=== PATIENT | male | born 1975 | race Caucasian/White ===

== ENCOUNTER 2018-02-06 20:59 | Emergency (ER) | payer MEDICARE, OTHER ==
[2018-02-06 21:58] LABS: Hematocrit 41 % (42-52); Mean Corpuscular HGB Conc 32 g/dl (31-36); Mean Corpuscular Hemoglobin 27 pg (27-31); Mean Corpuscular Volume 86 fL (80-94); Mean Platelet Volume 9.9 fL (7.4-10.4); Platelet Count 235 10^3/ul (150-450); Red Blood Count 4.74 10^6/ul (4.00-5.40); Red Cell Distribution Width 17 % (10.5-15)
[2018-02-06 22:09] LABS: Albumin 3.7 g/dL (3.2-5.2); Albumin/Globulin Ratio 0.9 (1-3); BUN/Creatinine Ratio 44.3 (8-20); C Reactive Protein 45.17 mg/L (<8.01); Calcium 9.6 mg/dL (8.6-10.3); EGFR Non-African American 144.3 (>60); Globulin 4.3 g/dL (2-4); Potassium 4.4 mmol/L (3.5-5.0); Total Bilirubin 0.4 mg/dL (0.2-1.0)
[2018-02-06 22:52] LABS: Immature Granulocytes 2 % (0-9); Lymphocytes % 14 %; Metamyelocytes % 1 % (0-2); Monocytes % 8 %; Myelocytes % 1 % (0-1); Neutrophil % 71 %
[2018-02-06 22:53] LABS: ABS Basophils 0.1 10^3/ul (0-0.2); ABS Eosinophils 0.3 10^3/ul (0-0.6); ABS Lymphocytes 1.1 10^3/ul (1.0-4.8); ABS Monocytes 0.7 10^3/ul (0-0.8); ABS Neutrophils 5.8 10^3/ul (1.5-7.7); ABS Nucleated RBC 0 10^3/ul; Nucleated Red Blood Cells % 0.1
--- NOTE | 2018-02-06 23:03 | ED ---
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 Denies trauma, fever, purulent discharge, pain , N/V, change in lower extremities other than bleeding. Patient concerned for bleeding. Patient states he used to be followed by home care, but has not been there a year. History of recent antibiotics for cellulitis of right calf completed one to 2 weeks ago. Antibiotics prescribed by PCP. - History of Current Complaint Chief Complaint: EDExtremityLower Stated Complaint: RIGHT FOOT PAIN Time Seen by Provider: 02/06/18 21:10 Hx Obtained From: Patient Mechanism Of Injury: Other Severity Currently: None Pain Intensity: 0 Pain Scale Used: 0-10 Numeric Able to Bear Weight: Yes - Allergies/Home Medications Allergies/Adverse Reactions: Allergies Allergy/AdvReac Type Severity Reaction Status Date / Time No Known Allergies Allergy Verified 11/23/14 13:40 PMH/Surg Hx/FS Hx/Imm Hx Endocrine/Hematology History: Denies: Hx Anticoagulant Therapy Cardiovascular History: Denies: Hx Atrial Fibrillation History: Denies: Hx Dialysis Sensory History: Denies: Hx Eye Prosthesis EENT History: Denies: Hx Deafness Neurological History: Denies: Hx Developmental Delay Psychiatric History: Denies: Hx Autism Infectious Disease History: No Infectious Disease History: Denies: Traveled Outside the [place] in Last 30 Days - Family History Known Family History: Positive: Unknown - Social History Occupation: Unemployed Alcohol Use: Rare Substance Use Type: Reports: None Smoking Status (MU): Never Smoked Tobacco Review of Systems Constitutional: Negative Eyes: Negative ENT: Negative Cardiovascular: Negative Respiratory: Negative Gastrointestinal: Negative Genitourinary: Negative Musculoskeletal: Negative Skin: Other Neurological: Negative Psychological: Normal All Other Systems Reviewed And Are Negative: Yes Physical Exam - Summary Physical Exam Summary: Small area of bleeding noted on medial right ankle consistent with abrasion. Chronic lymphedema with chronic skin changes and large creases in swollen tissue. No foul odor, purulent discharge noted. No indication of trauma, extra warmth, erythema, ecchymosis noted. Motor function intact distally Triage Information Reviewed: Yes Vital Signs On Initial Exam: Initial Vitals Temp Pulse Resp BP Pulse Ox 96.8 F 100 16 134/70 98 02/06/18 21:01 02/06/18 21:01 02/06/18 21:01 02/06/18 21:01 02/06/18 21:01 Vital Signs Reviewed: Yes Appearance: Positive: Well-Appearing Skin: Positive: Warm Head/Face: Positive: Normal Head/Face Inspection Eyes: Positive: Normal Neck: Positive: Supple Respiratory/Lung Sounds: Positive: Clear to Auscultation Cardiovascular: Positive: Normal Abdomen Description: Positive: Nontender Musculoskeletal: Positive: Normal Neurological: Positive: Normal Psychiatric: Positive: Normal AVPU Assessment: Alert - Alannah Coma Scale Best Eye Response: 4 - Spontaneous Best Motor Response: 6 - Obeys Commands Best Verbal Response: 5 - Oriented Coma Scale Total: 15 Diagnostics - Vital Signs Vital Signs Temp Pulse Resp BP Pulse Ox 02/06/18 21:01 96.8 F 100 16 134/70 98 - Laboratory Lab Results: Lab Results 02/06/18 02/06/18 02/06/18 Range/Units 21:23 21:23 21:23 WBC 8.0 (3.5-10.8) 10^3/ul RBC 4.74 (4.00-5.40) 10^6/ul Hgb 13.0 L (14.0-18.0) g/dl Hct 41 L (42-52) % MCV 86 (80-94) fL MCH 27 (27-31) pg MCHC 32 (31-36) g/dl RDW 17 H (10.5-15) % Plt Count 235 (150-450) 10^3/ul MPV 9.9 (7.4-10.4) fL Neut % (Auto) Not Reportable Lymph % (Auto) Not Reportable Gillespie % (Auto) Not Reportable Eos % (Auto) Not Reportable Baso % (Auto) Not Reportable Absolute Neuts (auto) 5.8 (1.5-7.7) 10^3/ul Absolute Lymphs (auto) 1.1 (1.0-4.8) 10^3/ul Absolute Monos (auto) 0.7 (0-0.8) 10^3/ul Absolute Eos (auto) 0.3 (0-0.6) 10^3/ul Absolute Basos (auto) 0.1 (0-0.2) 10^3/ul Absolute Nucleated RBC 0 10^3/ul Immature Gran % 2 (0-9) % Neutrophils % 71 % Lymphocytes % 14 % Monocytes % 8 % Eosinophils % 4 % Basophils % 1 % Metamyelocytes % 1 (0-2) % Myelocytes % 1 (0-1) % Nucleated RBC % 0.1 Normal RBC Morphology Normal (Normal) Sodium 142 (135-145) mmol/L Potassium 4.4 (3.5-5.0) mmol/L Chloride 103 (101-111) mmol/L Carbon Dioxide 36 H (22-32) mmol/L Anion Gap 3 (2-11) mmol/L BUN 27 H (6-24) mg/dL Creatinine 0.61 L (0.67-1.17) mg/dL Est GFR ( Amer) 174.6 (>60) Est GFR (Non-Af Amer) 144.3 (>60) BUN/Creatinine Ratio 44.3 H (8-20) Glucose 80 (70-100) mg/dL Lactic Acid 0.9 (0.5-2.0) mmol/L Calcium 9.6 (8.6-10.3) mg/dL Total Bilirubin 0.40 (0.2-1.0) mg/dL AST 27 (13-39) U/L ALT 33 (7-52) U/L Alkaline Phosphatase 77 (34-104) U/L C-Reactive Protein 45.17 H (<8.01) mg/L Total Protein 8.0 (6.4-8.9) g/dL Albumin 3.7 (3.2-5.2) g/dL Globulin 4.3 H (2-4) g/dL Albumin/Globulin Ratio 0.9 L (1-3) Result Diagrams: 02/06/18 21:23 02/06/18 21:23 Lab Statement: Any lab studies that have been ordered have been reviewed, and results considered in the medical decision making process. 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 Denies trauma, fever, purulent discharge, pain, N/V, change in lower extremities other than bleeding. Patient concerned for bleeding. Patient states he used to be followed by home care, but has not been there a year. History of recent antibiotics for cellulitis of right calf completed one to 2 weeks ago. Antibiotics prescribed by PCP. Physical exam:Small area of bleeding noted on medial right ankle consistent with abrasion. Chronic lymphedema with chronic skin changes and large creases in swollen tissue. No foul odor, purulent discharge noted. No indication of trauma, extra warmth, erythema, ecchymosis noted. Motor function intact distally. Vital signs within normal limits. Normal white count. X Way of right ankle negative for acute process. No indication of infection. Bleeding controlled. Pressure dressing applied. Follow-up with primary care. Patient also seen by Dr. Ricardo who agrees with plan. - Diagnoses Provider Diagnoses: Lymphedema of extremity Discharge - Sign-Out/Discharge Documenting (check all that apply): Patient Departure - Discharge Plan Condition: Stable Disposition: HOME Patient Education Materials: Lymphedema (ED) Referrals: No Primary Care Phys,NOPCP [Primary Care Provider] - Additional Instructions: Follow-up with your primary care doctor. Return to the ED for any new or worsening symptoms - Billing Disposition and Condition Condition: STABLE Disposition: Home
[2018-02-06 23:22] VITALS: BP 126/82
== END 2018-02-06 23:22 | disposition home or self-care (01) ==
LOC: ED 20:59
DX: I89.0 Lymphedema, not elsewhere classified (principal)
CPT/HCPCS: 36415; 80053; 83605; 85025; 86140; 87040; 99282

== ENCOUNTER 2018-02-15 15:52 | Inpatient (IN) | payer MEDICARE, OTHER ==
--- NOTE | 2018-02-15 16:16 | ED ---
GI/ HPI - HPI Summary HPI Summary: Patient is a 42 y/o M presenting to ED with complaints of constipation for the past 2-3 days. No abdominal pain reported. However, he had a bowel movement 2 hours ago that was soft. He has been taking a stool softener. On triage, temp of 90 F is noted. Patient states that he has heat in his home and that it is parachute line tier his home. He denies that he has been outside recently. Patient lives by himself in a trailer. Redness of hands is noted, he claims that his hands are typically red. PMHx of lymphedema, no Hx of diabetes reported. He states he has been seen by [facility]. Patient has bandages on his legs, he claims that he wraps his own bandages. He notes that he places alganate on his legs, states that he placed present alganate on legs 1-2 days ago. Patient claims to weigh around 450 lbs. On triage, pain is denied. Nothing is noted to aggravate/alleviate Sx. Home medications, allergies, and nurse's note are reviewed. - History of Current Complaint Chief Complaint: EDGeneral Time Seen by Provider: 02/15/18 16:03 Stated Complaint: CONSTIPATION Hx Obtained From: Patient Onset/Duration: Started Days Ago - constipation 2-3 days ago, Still Present Timing: Constant, Lasting Days - constipation 2-3 days ago Current Severity: None - pain denied Pain Intensity: 0 Associated Signs and Symptoms: Positive: Constipation. Negative: Abdominal Pain Aggravating Factor(s): Nothing Alleviating Factor(s): Nothing - Allergy/Home Medications Allergies/Adverse Reactions: Allergies Allergy/AdvReac Type Severity Reaction Status Date / Time levofloxacin [From Levaquin] Allergy Headache Verified 02/15/18 16:01 Home Medications: Home Medications Penicillin VK 500 MG TAB(NF) [Penicillin VK 500 mg Tab] 500 mg PO BID 02/15/18 [ History Confirmed 02/15/18] PMH/Surg Hx/FS Hx/Imm Hx Endocrine/Hematology History: Denies: Hx Anticoagulant Therapy Cardiovascular History: Denies: Hx Atrial Fibrillation History: Denies: Hx Dialysis Sensory History: Denies: Hx Eye Prosthesis, Hx Deafness Opthamlomology History: Denies: Hx Eye Prosthesis Neurological History: Denies: Hx Developmental Delay Psychiatric History: Denies: Hx Autism Infectious Disease History: No Infectious Disease History: Denies: Traveled Outside the [place] in Last 30 Days - Family History Known Family History: Negative: Blood Disorder - Social History Alcohol Use: Rare Substance Use Type: Reports: None Smoking Status (MU): Never Smoked Tobacco Review of Systems Positive: Other - TEMP OF 90 F Negative: Abdominal Pain Positive: other - POSITIVE - CONSTIPATION Positive: Other - POSITIVE - ERYTHEMA OF HANDS All Other Systems Reviewed And Are Negative: Yes Physical Exam - Summary Physical Exam Summary: Appearance: Well appearing, no pain distress Skin: cold, dry, reflects adequate perfusion; extreme edema BLE with chronic skin changes, weeping wounds, large wounds dressed with alginate; erythema of hands with chronic skin changes Head/face: normal Eyes: EOMI, JENN ENT: mucous membranes moist; thick yellow discharge from right narse Neck: supple, non-tender Respiratory: CTA, breath sounds present Cardiovascular: RRR, pulses symmetrical Abdomen: non-tender, soft Bowel Sounds: present Musculoskeletal: strength/ROM intact, extreme edema BLE; lymphedema at BLE up to umbilicus. Neuro: normal, sensory motor intact, A&Ox3 Psych: Developmental delay, otherwise normal Triage Information Reviewed: Yes Vital Signs On Initial Exam: Initial Vitals Temp Pulse Resp BP Pulse Ox 0 F 61 18 95/71 98 02/15/18 15:55 02/15/18 15:55 02/15/18 15:55 02/15/18 15:55 02/15/18 15:55 Vital Signs Reviewed: Yes Diagnostics - Vital Signs Vital Signs Temp Pulse Resp BP Pulse Ox 02/15/18 15:55 0 F 61 18 95/71 98 - Laboratory Result Diagrams: 02/15/18 17:03 02/15/18 17:03 Lab Statement: Any lab studies that have been ordered have been reviewed, and results considered in the medical decision making process. - CT abd/pel ct CT Interpretation Completed By: Radiologist Summary of CT Findings: IMPRESSION: #. Negative for bowel obstruction or significant retained stool within the colon. #. Moderate predominant sigmoid diverticulosis of the colon without findings of acute. diverticulitis. #. Bilateral enlarged inguinal and external iliac lymph nodes with dominant 2.7 cm short. axis LEFT inguinal lymph node. Dominant external iliac lymph node measures 1.8 cm short. axis on the RIGHT. Correlate with clinical assessment and consider tissue sampling for. pathologic assessment if deemed appropriate. #. Cholelithiasis without secondary findings to suggest acute cholecystitis. This report was reviewed by ED physician. GIGU Course/Dx - Course Course Of Treatment: Nurse's notes reviewed. The patient presents very cold to the touch but only complaining today of constipation. He is overly obese with extreme lymphedema of his legs. There are chronic wounds on both lower extremities. We clean and redress both of them which were dirty. A CT scan was done of his abdomen which showed no indication of constipation or abdominal pathology. Despite his core temperature rectally of 87.3 there is remarkably no significant laboratory abnormality at this point. We suspect the patient has no heat in his home and is very cold out at present. He relays that he lives alone in a trailer. Social work was contacted and will be involved in his case. He required warming with external warming blanket and warmed IV fluids. He'll be admitted to the hospitalist service for further. - Diagnoses Differential Diagnoses - Male: Other - Hypothermia, sepsis, pneumonia, abdominal infection, constipation, UTI, lower extremity infection from chronic wounds Provider Diagnoses: Hypothermia, Lymphedema, Lymphadenopathy, Chronic wound of extremity - Physician Notifications Discussed Care Of Patient With: Khadra Salmon Time Discussed With Above Provider: 17:32 Instructed by Provider To: Other - Patient's case was discussed with Dr. Salmon, Dr. Salmon accepts for admission. - Critical Care Time Critical Care Time: 30-74 min - CCT is EXCLUSIVE of separately billable procedures. Discharge - Sign-Out/Discharge Documenting (check all that apply): Patient Departure - ADMIT - Discharge Plan Condition: Fair Disposition: ADMITTED TO [facility] Referrals: No Primary Care Phys,NOPCP [Primary Care Provider] - - Billing Disposition and Condition Condition: FAIR Disposition: Admitted to [facility] - Attestation Statements Document Initiated by Scribe: Yes Documenting Scribe: MARSHALL COLLINS Provider For Whom Summer is Documenting (Include Credential): NAKIA LOO MD Scribe Attestation: MARSHALL Carrasco , scribed for NAKIA LOO MD on 02/15/18 at 1846. Scribe Documentation Reviewed: Yes Provider Attestation: The documentation as recorded by the MARSHALL mendoza accurately reflects the service I personally performed and the decisions made by me, NAKIA LOO MD Status of Scribe Document: Viewed
[2018-02-15 17:18] LABS: Hematocrit 41 % (42-52); Hemoglobin 13.2 g/dl (14.0-18.0); Mean Corpuscular HGB Conc 32 g/dl (31-36); Mean Corpuscular Hemoglobin 28 pg (27-31); Mean Corpuscular Volume 86 fL (80-94); Mean Platelet Volume 8.8 fL (7.4-10.4); Platelet Count 134 10^3/ul (150-450); Red Blood Count 4.78 10^6/ul (4.00-5.40); Red Cell Distribution Width 17 % (10.5-15); White Blood Count 4.7 10^3/ul (3.5-10.8)
[2018-02-15 17:26] LABS: INR 1.06 (0.77-1.02)
[2018-02-15 17:35] LABS: Albumin 3.6 g/dL (3.2-5.2); Albumin/Globulin Ratio 0.9 (1-3); BUN/Creatinine Ratio 46.3 (8-20); Calcium 9.4 mg/dL (8.6-10.3); EGFR Non-African American 166.1 (>60); Globulin 3.9 g/dL (2-4); Potassium 4.3 mmol/L (3.5-5.0); Total Bilirubin 0.5 mg/dL (0.2-1.0); Total Protein 7.5 g/dL (6.4-8.9)
[2018-02-15 17:58] LABS: ABS Basophils 0 10^3/ul (0-0.2); ABS Eosinophils 0.1 10^3/ul (0-0.6); ABS Lymphocytes 0.7 10^3/ul (1.0-4.8); ABS Monocytes 0.3 10^3/ul (0-0.8); ABS Neutrophils 3.5 10^3/ul (1.5-7.7); ABS Nucleated RBC 0 10^3/ul; Nucleated Red Blood Cells % 0.3
[2018-02-15] MEDS ORDERED: Acetaminophen TAB* 325 MG PO PRN (18:00)
[2018-02-15] MEDS ORDERED: Ondansetron INJ* 2 MG/ML VIAL IV PRN (18:01)
[2018-02-15] MEDS ORDERED: Senna TAB PO PRN (18:02)
[2018-02-15] MEDS ORDERED: NS 0.9% 1000 ML* 1,000 ML IV SCH (18:15)
[2018-02-15] MEDS: Enoxaparin(*) 40 MG/0.4 ML SYR SUBCUT SCH (18:39)
--- NOTE | 2018-02-15 20:35 | HP ---
HISTORY AND PHYSICAL: DATE OF ADMISSION: 02/15/18 PRIMARY CARE PROVIDER: The patient does not have a primary care doctor. CHIEF COMPLAINT: Constipation. HISTORY OF PRESENT ILLNESS: This is a 42-year-old male with history of developmental delay, chronic lymphedema with history of recurrent left leg cellulitis; on suppressive penicillin, who comes to the emergency room because of constipation. The patient states that he has been taking laxative and he has been having minimal stool output. He does not have any abdominal pain, no nausea, no vomiting. He does not have any fevers, no chills, no chest pain, no shortness of breath. He states that his last good bowel movement was about 3 to 4 days ago. Usually, he has bowel movement every day and he is having a small amount of stool. There have no been no recent changes in his medication or his diet. PAST MEDICAL HISTORY: 1. Developmental delay. 2. Chronic lymphedema. 3. History of recurrent left leg cellulitis. PAST SURGICAL HISTORY: 1. Hernia surgery. 2. Tonsillectomy. MEDICATIONS: Include penicillin 500 mg tablet twice a day. ALLERGIES: Levofloxacin causes him to have a headache. FAMILY HISTORY: The patient does not know if his mother or father had any medical issues. SOCIAL HISTORY: He does not smoke, currently does not work, occasional alcohol use. REVIEW OF SYSTEMS: A full 14-point review of systems was done and is as stated in the HPI; otherwise, is negative. PHYSICAL EXAMINATION GENERAL: This is an obese male, lying on an ER stretcher in no acute distress. VITAL SIGNS: Blood pressure of 95/71, pulse of 61, respiratory rate of 18, pulse ox of 98% on room air, the patient was found to have hypothermia; temperature of 87.4 in the emergency room. After being placed on a Geoffrey Hugger , has slightly improved. HEENT: Pupils are equal, round, reactive to light. Atraumatic, normocephalic. LUNGS: There is no tachypnea, no use of accessory muscles. Lungs are clear to auscultation with no wheezing, rales, or rhonchi. HEART: Regular rate and rhythm. No chest wall tenderness. No murmurs, rubs, or gallops. ABDOMEN: Bowel sounds are normoactive in all 4 quadrants. Abdomen is soft, nontender, nondistended. EXTREMITIES: There is bilateral lower leg edema with no area of erythema, tenderness, or warmth. area of sloughing, with mild discharge NEUROLOGICAL: Alert and oriented x3, the patient is slow to talk; however, answers all questions appropriately. Follows all commands. Speech is clear, but slow. There is symmetric smile. There is no nystagmus. He is able to move all 4 extremities without any issues. DIAGNOSTIC STUDIES/LAB DATA: Labs: White cell count of 4.7, hemoglobin of 13.2, hematocrit 41, platelets of 134. INR 1.06. Chemistry, sodium of 142, potassium of 4.3, chloride of 104, bicarbonate of 36, BUN of 25, creatinine of 0.54, glucose of 157. AST of 37, ALT of 52, alk phos of 81. The patient had abdominal and pelvis CAT scan done, which showed negative for bowel obstruction or significant retained stool within the colon. It showed prominent sigmoid diverticulosis of the colon without acute findings of diverticulitis. The patient does have bilateral enlarged inguinal external lymph nodes, with dominant of 2.7 cm as well as 1.8 cm on the right. There are gallstones without evidence suggestive of acute cholecystitis. IMPRESSION AND PLAN: 1. Hypothermia: It is likely that the patient does not have any heat at home, so we placed the patient on Geoffrey Hugger. At this point, he is nontoxic appearing. There is no evidence of focal infection. Urinalysis was sent. 2. Lymphedema: This is chronic for him. Dressings are intact. 3. Recurrent cellulitis: Continue home dose penicillin. 4. DVT prophylaxis: We will start the patient on Lovenox 40 mg subcutaneous. 5. We will monitor the patient's clinical course and adjust the plan accordingly. [id number]/[facility] #: [id number] [facility]
[2018-02-15] MEDS: Penicillin VK TAB* 250 MG PO SCH (20:57)
[2018-02-15] MEDS: Docusate CAP* 100 MG PO SCH (20:57)
[2018-02-15] MEDS: Magnesium Hydroxide LIQ* 30 ML UDC PO SCH (20:57)
[2018-02-16] MEDS: NS 0.9% 1000 ML* 1,000 ML IV SCH ×2 (02:22→10:22)
[2018-02-16] MEDS: Penicillin VK TAB* 250 MG PO SCH ×2 (08:51→21:12)
[2018-02-16] MEDS: Magnesium Hydroxide LIQ* 30 ML UDC PO SCH ×2 (08:51→21:12)
[2018-02-16] MEDS: Docusate CAP* 100 MG PO SCH ×2 (08:51→21:12)
[2018-02-16 09:15] LABS: TSH (Thyroid Stimulating Horm) 4.27 mcIU/mL (0.34-5.60)
--- NOTE | 2018-02-16 12:48 | PN ---
Subjective Date of Service: 02/16/18 Interval History: Admitted yesterday for constipation and hypothermia. Temp has improved, now off bairhugger, no BM yet. Objective Active Medications: Acetaminophen (Tylenol Tab*) 650 mg PO Q6H PRN PRN Reason: PAIN - MILD TO MODERATE Docusate Sodium (Colace Cap*) 100 mg PO BID [facility] Last Admin: 02/15/18 20:57 Dose: 100 mg Enoxaparin Sodium (Lovenox(*)) 40 mg SUBCUT Q24H [facility] Last Admin: 02/15/18 18:39 Dose: 40 mg Sodium Chloride (Ns 0.9% 1000 Ml*) 1,000 mls @ 100 mls/hr IV PER RATE [facility] Last Admin: 02/16/18 02:22 Dose: 100 mls/hr Magnesium Hydroxide (Milk Of Magnesia Liq*) 30 ml PO BID [facility] Last Admin: 02/15/18 20:57 Dose: 30 ml Ondansetron HCl (Zofran Inj*) 4 mg IV Q6H PRN PRN Reason: NAUSEA Penicillin V Potassium (Penicillin Vk Tab*) 500 mg PO BID [facility] Last Admin: 02/15/18 20:57 Dose: 500 mg Senna (Senokot Tab*) 1 tab PO BEDTIME PRN PRN Reason: CONSTIPATION Vital Signs - 8 hr 02/16/18 02/16/18 03:04 07:30 Temperature 96.7 F Pulse Rate 89 92 Respiratory 32 19 Rate Blood Pressure 110/55 116/58 (mmHg) O2 Sat by Pulse 97 97 Oximetry Oxygen Devices in Use Now: None Appearance: Obese male lying in bed, not in distress Respiratory: Clear to Auscultation Cardiovascular: RRR Extremities: - - B/l leg lymphedema Neurological: Alert and Oriented x 3 Result Diagrams: 02/15/18 17:03 02/15/18 17:03 Assess/Plan/Problems-Billing Assessment: - Patient Problems (1) Hypothermia Current Visit: Yes Status: Acute Code(s): T68.XXXA - HYPOTHERMIA, INITIAL ENCOUNTER SNOMED Code(s): 620852936 Comment: Now off bairhugger. Getting TSH getting aids social worker to ensure safe discharge (2) Lymphedema Current Visit: Yes Status: Acute Code(s): I89.0 - LYMPHEDEMA, NOT ELSEWHERE CLASSIFIED SNOMED Code(s): 255006778 Comment: chornic lymphedema with history of recurrent left leg cellulitis on chronic penicillin for suppression (3) Obesity Current Visit: Yes Status: Acute Code(s): E66.9 - OBESITY, UNSPECIFIED SNOMED Code(s): 148486984 Comment: BMI of 62 (4) Constipation Current Visit: Yes Status: Acute Code(s): K59.00 - CONSTIPATION, UNSPECIFIED SNOMED Code(s): 16310105 Comment: bowel regimen ordered. no BM yet since arrival to ED 02/15/18. (5) DVT prophylaxis Current Visit: Yes Status: Acute Code(s): SIY6895 - SNOMED Code(s): 591509233 Comment: Lovenox subQ Status and Disposition: will get aids social worker to see patient to ensure safe discharge planning, patient wants to go home,.
[2018-02-16 14:56] LABS: Urine Appearance Cloudy; Urine Bilirubin Negative (Negative); Urine Blood Negative (Negative); Urine Color Yellow; Urine Glucose Negative (Negative); Urine Ketones Negative (Negative); Urine Nitrite Negative (Negative); Urine Protein Negative (Negative); Urine Specific Gravity 1.024 (1.010-1.030); Urine Urobilinogen Negative (Negative)
--- NOTE | 2018-02-16 16:44 | PN ---
Hospitalist Progress Note Date of Service: 02/16/18 Case was discussed w/ sales manager [place] nutritional chemist- decided for APS to check on him on Sunday, but for today the local police will do a wellness check on him, patient wants to go home, and his acute medical issues have been resolved. Patient will take a cab to home, telephonic nurse case manager told me we will give him a cab voucher. will do the discharge paperwork.
[2018-02-16] MEDS: Enoxaparin(*) 40 MG/0.4 ML SYR SUBCUT SCH (16:58)
--- NOTE | 2018-02-17 02:09 | DS ---
CC: Dr. Zurdo Sin * DISCHARGE SUMMARY: DATE OF ADMISSION: 02/15/18 DATE OF DISCHARGE: 02/16/18 REASON FOR ADMISSION: Hypothermia/constipation. HOSPITAL COURSE: This is a 42-year-old male with a past medical history of chronic lymphedema with recurrent left cellulitis, on suppressive penicillin therapy, who came to the emergency room because of constipation. However, the patient reported that he had a bowel movement 2 hours prior to arrival to the emergency room. In the emergency room, the patient was noted to be hypothermic. The patient was placed on a Geoffrey Hugger, temperature slowly improved. TSH was checked which was found to be 4.27. Otherwise, the electrolytes were okay. The patient was ambulating, also had a bowel movement earlier today. Wound care was performed by the nurse. The patient has chronic bilateral lower extremity edema with wounds. The patient has seen intermittently the [facility] locally and in [place]. The patient continued to improve, temperature is now 97.6 Fahrenheit without being on Geoffrey Hugger for the past several hours. DISCHARGE DIAGNOSES: Include: 1. Hypothermia, resolved. 2. Constipation, resolved. 3. Obesity. 4. Chronic lower extremity edema. 5. Recurrent left leg cellulitis. 6. Chronic bilateral leg wounds with dressing in place. The patient does his own dressings. DISCHARGE MEDICATIONS: Include penicillin 500 mg twice a day. No new medications were given. The patient was instructed to increase his fiber intake, eat more vegetables, drink more fluid. The patient to have activity as tolerated, follow up with the PCP in 1 week, and follow up with [facility] in 2 to 4 weeks. The patient to return to the emergency room should he have any abdominal pain, if he does not have a bowel movement in the next 3 to 4 days, or if any new symptoms arise. [id number]/[facility] #: [id number] [facility]
[2018-02-17] MEDS: Penicillin VK TAB* 250 MG PO SCH ×2 (07:39→21:15)
[2018-02-17] MEDS: Magnesium Hydroxide LIQ* 30 ML UDC PO SCH ×2 (07:39→21:16)
[2018-02-17] MEDS: Docusate CAP* 100 MG PO SCH ×2 (07:39→21:15)
[2018-02-17] MEDS ORDERED: Polyethylene Glycol 3350* 17 GM PACKET PO PRN (11:04)
--- NOTE | 2018-02-17 11:07 | PN ---
Subjective Date of Service: 02/17/18 Interval History: No overnight events. Patient states he still has not had a BM. Passing gas. No abdominal pain. No SOB or CP. States he has not ambulated to the bathroom. Uses the urinal. Discussed concern for care at home and getting around, thus the PT evaluation. Objective Active Medications: Acetaminophen (Tylenol Tab*) 650 mg PO Q6H PRN PRN Reason: PAIN - MILD TO MODERATE Docusate Sodium (Colace Cap*) 100 mg PO BID [facility] Last Admin: 02/17/18 07:39 Dose: 100 mg Enoxaparin Sodium (Lovenox(*)) 40 mg SUBCUT Q24H [facility] Last Admin: 02/16/18 16:58 Dose: 40 mg Magnesium Hydroxide (Milk Of Magnesia Liq*) 30 ml PO BID [facility] Last Admin: 02/17/18 07:39 Dose: 30 ml Ondansetron HCl (Zofran Inj*) 4 mg IV Q6H PRN PRN Reason: NAUSEA Penicillin V Potassium (Penicillin Vk Tab*) 500 mg PO BID [facility] Last Admin: 02/17/18 07:39 Dose: 500 mg Senna (Senokot Tab*) 1 tab PO BEDTIME PRN PRN Reason: CONSTIPATION Vital Signs - 8 hr 02/17/18 02/17/18 03:36 07:31 Temperature 97.5 F 97.5 F Pulse Rate 91 91 Respiratory 22 20 Rate Blood Pressure 111/57 118/47 (mmHg) O2 Sat by Pulse 96 97 Oximetry Oxygen Devices in Use Now: None Appearance: NAD, morbidly obese Ears/Nose/Mouth/Throat: Mucous Membranes Moist Respiratory: Symmetrical Chest Expansion and Respiratory Effort, Clear to Auscultation Cardiovascular: NL Sounds; No Murmurs; No JVD, RRR Abdominal: - - morbidly obese, nontender Extremities: - - chronic significant lower ext lymphedema, open macerated areas seen at the heels between the dressing wrap Neurological: Alert and Oriented x 3 Result Diagrams: 02/15/18 17:03 02/15/18 17:03 Microbiology and Other Data: Microbiology 02/15/18 20:19 Aerobic Blood Culture - Preliminary Blood Venous No Growth Day 1 Anaerobic Blood Culture - Preliminary No Growth Day 1 02/15/18 17:03 Aerobic Blood Culture - Preliminary Blood Venous No Growth Day 1 Anaerobic Blood Culture - Preliminary No Growth Day 1 Assess/Plan/Problems-Billing Assessment: This is a 42 yr old with developmental delay, morbidly obese with chronic lymphedema who presented to the ER with constipation found to be hypothermic - Patient Problems (1) Constipation Current Visit: Yes Status: Acute Code(s): K59.00 - CONSTIPATION, UNSPECIFIED SNOMED Code(s): 58031144 Comment: A. No BM since admission. No pain. Passing gas Plan INcrease bowel regimen (2) Hypothermia Current Visit: Yes Status: Acute Code(s): T68.XXXA - HYPOTHERMIA, INITIAL ENCOUNTER SNOMED Code(s): 332624353 Comment: A. Unclear etiology. Thought that patient may be lacking heat at home. Now normothermic off bearhugger. TSH: NL Plan Monitor Will check an AM cortisol (3) Lymphedema Current Visit: Yes Status: Acute Code(s): I89.0 - LYMPHEDEMA, NOT ELSEWHERE CLASSIFIED SNOMED Code(s): 889417774 Comment: chornic lymphedema with history of recurrent left leg cellulitis on chronic penicillin for suppression Nursing just placed new dressing this AM. But able to see skin breakdown. Plan Daily dressing changes Wound care consult Continue patients home PCN (4) Obesity Current Visit: Yes Status: Acute Code(s): E66.9 - OBESITY, UNSPECIFIED SNOMED Code(s): 902756470 Comment: BMI of 62 (5) DVT prophylaxis Current Visit: Yes Status: Acute Code(s): ULT4957 - SNOMED Code(s): 516779444 Comment: Lovenox subQ Status and Disposition: Awaiting PT eval. Concern for patient safety and may need acute rehab.
[2018-02-17] MEDS: Polyethylene Glycol 3350* 17 GM PACKET PO SCH (11:43)
[2018-02-17] MEDS: Enoxaparin(*) 40 MG/0.4 ML SYR SUBCUT SCH (17:42)
[2018-02-18] MEDS: Penicillin VK TAB* 250 MG PO SCH ×2 (07:25→21:25)
[2018-02-18] MEDS: Docusate CAP* 100 MG PO SCH ×2 (07:26→21:25)
[2018-02-18] MEDS: Polyethylene Glycol 3350* 17 GM PACKET PO SCH (07:26)
[2018-02-18] MEDS: Magnesium Hydroxide LIQ* 30 ML UDC PO SCH (07:28)
[2018-02-18] MEDS ORDERED: Magnesium Hydroxide LIQ* 30 ML UDC PO PRN (10:00)
[2018-02-18] MEDS ORDERED: Furosemide IV* 10 MG/ML VIAL (40 MG) IV ONE (11:38)
--- NOTE | 2018-02-18 17:12 | PN ---
Subjective Date of Service: 02/18/18 Interval History: Patient seen and examined, offers no general complaints. States his legs feel heavy and sore. Denies fever or chills, no SOB or chest pain. Objective Active Medications: Acetaminophen (Tylenol Tab*) 650 mg PO Q6H PRN PRN Reason: PAIN - MILD TO MODERATE Docusate Sodium (Colace Cap*) 100 mg PO BID [facility] Last Admin: 02/18/18 07:26 Dose: 100 mg Enoxaparin Sodium (Lovenox(*)) 40 mg SUBCUT Q24H [facility] Last Admin: 02/17/18 17:42 Dose: 40 mg Magnesium Hydroxide (Milk Of Magnesia Liq*) 30 ml PO BID PRN PRN Reason: CONSTIPATION Ondansetron HCl (Zofran Inj*) 4 mg IV Q6H PRN PRN Reason: NAUSEA Penicillin V Potassium (Penicillin Vk Tab*) 500 mg PO BID [facility] Last Admin: 02/18/18 07:25 Dose: 500 mg Polyethylene Glycol/Electrolytes (Miralax*) 17 gm PO DAILY [facility] Last Admin: 02/18/18 07:26 Dose: 17 gm Senna (Senokot Tab*) 1 tab PO BEDTIME PRN PRN Reason: CONSTIPATION Vital Signs - 8 hr 02/18/18 02/18/18 02/18/18 09:22 11:25 15:46 Temperature 97.3 F 97.2 F Pulse Rate 88 88 Respiratory 16 20 18 Rate Blood Pressure 123/70 118/67 (mmHg) O2 Sat by Pulse 97 99 Oximetry Oxygen Devices in Use Now: None Appearance: alert, NAD Eyes: No Scleral Icterus, PERRLA Ears/Nose/Mouth/Throat: Mucous Membranes Moist Neck: NL Appearance and Movements; NL JVP, Trachea Midline Respiratory: - - low lung volumes, no rhonchi or wheeze Cardiovascular: NL Sounds; No Murmurs; No JVD, RRR Abdominal: NL Sounds; No Tenderness; No Distention Extremities: - - bilateral LE lymphedema, wrapped in HERBERT bandages Skin: - - bilateral venous stasis wounds LE Neurological: Alert and Oriented x 3 Nutrition: Taking PO's Result Diagrams: 02/15/18 17:03 02/15/18 17:03 Microbiology and Other Data: Microbiology 02/15/18 20:19 Aerobic Blood Culture - Preliminary Blood Venous No Growth Day 1 Anaerobic Blood Culture - Preliminary No Growth Day 1 02/15/18 17:03 Aerobic Blood Culture - Preliminary Blood Venous No Growth Day 1 Anaerobic Blood Culture - Preliminary No Growth Day 1 Diagnostic Imaging: Patient Name: MARCELLA BRAMBILA Ordering Physician: Dk Marie MD Acct.#: [id number] : 1975 Age: 42 Sex: M Location: EMERGENCY DEPARTMENT Exam Date: 02/15/18 161 ADM Status: REG ER Order Information: CT ABD/PEL W/O Accession Number: [id number] CPT: 59290 INDICATION: Constipation. COMPARISON: No relevant prior exams available on the [facility] PACS for comparison. TECHNIQUE: Multidetector CT images were obtained from the lung bases to the ischial tuberosities. No oral or IV contrast administered. Assessment of the visceral limited without IV contrast. Multiplanar reformation. REPORT: Obese body habitus limits image quality. VISUALIZED INFERIOR THORAX: Mild basilar dependent atelectasis. Mild cardiomegaly. LIVER / GALLBLADDER / PANCREAS / SPLEEN: No CT abnormality of the liver. Distended gallbladder with subtle stones including gas containing stones. Negative for biliary dilatation. Unremarkable pancreas and spleen. ALIMENTARY TRACT: Small hiatal hernia. No CT abnormality of the upper GI, small bowel, or infra cecal appendix. Moderate predominant sigmoid diverticulosis of the colon without findings of acute diverticulitis. Negative for significant retained stool within the colon. Negative for ascites or free air. Small fat-containing umbilical hernia without significant inflammatory change. MESENTERIC: Unremarkable. ADRENAL / GENITOURINARY: Normal adrenal glands. Negative for nephrolithiasis or hydronephrosis. No conspicuous focal renal lesions. Unremarkable nondilated ureters and partially distended urinary bladder. Symmetric seminal vesicles. RETROPERITONEAL: Bilateral enlarged inguinal and external iliac lymph nodes with dominant 2.7 cm short axis LEFT inguinal lymph node. Dominant external iliac lymph node measures 1.8 cm short axis on the RIGHT. VASCULAR: Negative for aortoiliac aneurysm. Physiologic distention of the IVC. BONES: Negative for suspicious focal osseous lesions. Multilevel degenerative spondylosis at the thoracic and lumbar sacral spine with increased kyphosis at the mid to distal thoracic spine. SOFT TISSUE: Unremarkable accounting for body habitus. IMPRESSION: #. Negative for bowel obstruction or significant retained stool within the colon. #. Moderate predominant sigmoid diverticulosis of the colon without findings of acute diverticulitis. #. Bilateral enlarged inguinal and external iliac lymph nodes with dominant 2.7 cm short axis LEFT inguinal lymph node. Dominant external iliac lymph node measures 1.8 cm short axis on the RIGHT. Correlate with clinical assessment and consider tissue sampling for pathologic assessment if deemed appropriate. #. Cholelithiasis without secondary findings to suggest acute cholecystitis. This report is only to be considered final once signed by the Provider(s) as displayed in the "<Electronically Signed by >" field (s). Absence of a signature indicates the report is in a draft status and still needs to be finalized. In the event this document was created by someone other than the signing Provider, the individual initiating the document will be listed in the "Entered by:" or "Dictated by:" plata. 1 of 2 Assess/Plan/Problems-Billing Assessment: This is a 42 yr old with developmental delay, morbidly obese with chronic lymphedema who presented to the ER with constipation found to be hypothermic. - Patient Problems (1) Constipation Code(s): K59.00 - CONSTIPATION, UNSPECIFIED SNOMED Code(s): 02434070 Comment: - CT as above without obstruction - Continue bowel regimen (2) Venous stasis ulcer of leg without varicose veins Code(s): I87.2 - VENOUS INSUFFICIENCY (CHRONIC) (PERIPHERAL); L97.909 - NON-PRS CHRONIC ULC UNSP PRT OF UNSP LOW LEG W UNSP SEVERITY SNOMED Code(s): 195992992 Comment: - Wound care consult pending - PT eval (3) Hypothermia Code(s): T68.XXXA - HYPOTHERMIA, INITIAL ENCOUNTER SNOMED Code(s): 391052297 Comment: - Unclear etiology, patient may be lacking heat at home - TSH normal - Off warming Geoffrey Hugger - AM cortisol normal - APS referral made (4) Lymphedema Code(s): I89.0 - LYMPHEDEMA, NOT ELSEWHERE CLASSIFIED SNOMED Code(s): 079485870 Comment: - Chornic lymphedema with history of recurrent left leg cellulitis on chronic penicillin for suppression - Wound care consult, appreciate recs for dressings and tx - Continue patients home PCN suppression, should see wound clinic and ID as an outpatient after DC Status and Disposition: Per PT, no physical rehab needs noted. Will need same day sign on for VNS, outpatient wound care and APS case opened to ensure safety. Will DC in AM after wound care sees patient.
[2018-02-18] MEDS: Enoxaparin(*) 40 MG/0.4 ML SYR SUBCUT SCH (18:01)
[2018-02-19] MEDS: Docusate CAP* 100 MG PO SCH (08:33)
[2018-02-19] MEDS: Penicillin VK TAB* 250 MG PO SCH (08:33)
[2018-02-19] MEDS: Polyethylene Glycol 3350* 17 GM PACKET PO SCH (08:33)
--- NOTE | 2018-02-19 15:07 | PN ---
Subjective Date of Service: 02/19/18 Interval History: Patient seen and examined. Evaluated by wound care nurse today. Denies SOB, no chest pain, no abdominal pain. No fevers or chills. Objective Active Medications: Acetaminophen (Tylenol Tab*) 650 mg PO Q6H PRN PRN Reason: PAIN - MILD TO MODERATE Docusate Sodium (Colace Cap*) 100 mg PO BID [facility] Last Admin: 02/19/18 08:33 Dose: 100 mg Enoxaparin Sodium (Lovenox(*)) 40 mg SUBCUT Q24H [facility] Last Admin: 02/18/18 18:01 Dose: 40 mg Magnesium Hydroxide (Milk Of Magnesia Liq*) 30 ml PO BID PRN PRN Reason: CONSTIPATION Ondansetron HCl (Zofran Inj*) 4 mg IV Q6H PRN PRN Reason: NAUSEA Penicillin V Potassium (Penicillin Vk Tab*) 500 mg PO BID [facility] Last Admin: 02/19/18 08:33 Dose: 500 mg Polyethylene Glycol/Electrolytes (Miralax*) 17 gm PO DAILY [facility] Last Admin: 02/19/18 08:33 Dose: 17 gm Senna (Senokot Tab*) 1 tab PO BEDTIME PRN PRN Reason: CONSTIPATION Vital Signs - 8 hr 02/19/18 02/19/18 02/19/18 07:33 08:37 10:59 Temperature 95.7 F 95.4 F Pulse Rate 87 89 Respiratory 19 16 20 Rate Blood Pressure 127/64 148/90 (mmHg) O2 Sat by Pulse 97 99 Oximetry 02/19/18 11:05 Temperature 95.7 F Pulse Rate Respiratory Rate Blood Pressure (mmHg) O2 Sat by Pulse Oximetry Oxygen Devices in Use Now: None Appearance: alert, NAD Eyes: No Scleral Icterus, PERRLA Ears/Nose/Mouth/Throat: NL Teeth, Lips, Gums, Mucous Membranes Moist Neck: NL Appearance and Movements; NL JVP, Trachea Midline Respiratory: Symmetrical Chest Expansion and Respiratory Effort, Clear to Auscultation Cardiovascular: NL Sounds; No Murmurs; No JVD, RRR Abdominal: NL Sounds; No Tenderness; No Distention Extremities: - - bilateral LE lymphedema with chronic wounds and poor skin quality Skin: - - as above Neurological: Alert and Oriented x 3, - - mild developmental delay Nutrition: Taking PO's Result Diagrams: 02/15/18 17:03 02/15/18 17:03 Microbiology and Other Data: Microbiology 02/15/18 20:19 Aerobic Blood Culture - Preliminary Blood Venous No Growth Day 1 Anaerobic Blood Culture - Preliminary No Growth Day 1 02/15/18 17:03 Aerobic Blood Culture - Preliminary Blood Venous No Growth Day 1 Anaerobic Blood Culture - Preliminary No Growth Day 1 Diagnostic Imaging: Patient Name: MARCELLA BRAMBILA Ordering Physician: Dk Marie MD Acct.#: [id number] : 1975 Age: 42 Sex: M Location: EMERGENCY DEPARTMENT Exam Date: 02/15/18 161 ADM Status: REG ER Order Information: CT ABD/PEL W/O Accession Number: [id number] CPT: 06488 INDICATION: Constipation. COMPARISON: No relevant prior exams available on the [facility] PACS for comparison. TECHNIQUE: Multidetector CT images were obtained from the lung bases to the ischial tuberosities. No oral or IV contrast administered. Assessment of the visceral limited without IV contrast. Multiplanar reformation. REPORT: Obese body habitus limits image quality. VISUALIZED INFERIOR THORAX: Mild basilar dependent atelectasis. Mild cardiomegaly. LIVER / GALLBLADDER / PANCREAS / SPLEEN: No CT abnormality of the liver. Distended gallbladder with subtle stones including gas containing stones. Negative for biliary dilatation. Unremarkable pancreas and spleen. ALIMENTARY TRACT: Small hiatal hernia. No CT abnormality of the upper GI, small bowel, or infra cecal appendix. Moderate predominant sigmoid diverticulosis of the colon without findings of acute diverticulitis. Negative for significant retained stool within the colon. Negative for ascites or free air. Small fat-containing umbilical hernia without significant inflammatory change. MESENTERIC: Unremarkable. ADRENAL / GENITOURINARY: Normal adrenal glands. Negative for nephrolithiasis or hydronephrosis. No conspicuous focal renal lesions. Unremarkable nondilated ureters and partially distended urinary bladder. Symmetric seminal vesicles. RETROPERITONEAL: Bilateral enlarged inguinal and external iliac lymph nodes with dominant 2.7 cm short axis LEFT inguinal lymph node. Dominant external iliac lymph node measures 1.8 cm short axis on the RIGHT. VASCULAR: Negative for aortoiliac aneurysm. Physiologic distention of the IVC. BONES: Negative for suspicious focal osseous lesions. Multilevel degenerative spondylosis at the thoracic and lumbar sacral spine with increased kyphosis at the mid to distal thoracic spine. SOFT TISSUE: Unremarkable accounting for body habitus. IMPRESSION: #. Negative for bowel obstruction or significant retained stool within the colon. #. Moderate predominant sigmoid diverticulosis of the colon without findings of acute diverticulitis. #. Bilateral enlarged inguinal and external iliac lymph nodes with dominant 2.7 cm short axis LEFT inguinal lymph node. Dominant external iliac lymph node measures 1.8 cm short axis on the RIGHT. Correlate with clinical assessment and consider tissue sampling for pathologic assessment if deemed appropriate. #. Cholelithiasis without secondary findings to suggest acute cholecystitis. This report is only to be considered final once signed by the Provider(s) as displayed in the "<Electronically Signed by >" field (s). Absence of a signature indicates the report is in a draft status and still needs to be finalized. In the event this document was created by someone other than the signing Provider, the individual initiating the document will be listed in the "Entered by:" or "Dictated by:" plata. 1 of 2 Assess/Plan/Problems-Billing Assessment: This is a 42 yr old with developmental delay, morbidly obese with chronic lymphedema who presented to the ER with constipation found to be hypothermic. - Patient Problems (1) Constipation Code(s): K59.00 - CONSTIPATION, UNSPECIFIED SNOMED Code(s): 93361317 Comment: - CT as above without obstruction - Continue bowel regimen (2) Venous stasis ulcer of leg without varicose veins Code(s): I87.2 - VENOUS INSUFFICIENCY (CHRONIC) (PERIPHERAL); L97.909 - NON-PRS CHRONIC ULC UNSP PRT OF UNSP LOW LEG W UNSP SEVERITY SNOMED Code(s): 958359006 Comment: - Wound care consult appreicated - Wound care instructions provided to RN - PT eval completed, no rehab needs identified - Will need close follow up for wound care as an outpatient (3) Hypothermia Code(s): T68.XXXA - HYPOTHERMIA, INITIAL ENCOUNTER SNOMED Code(s): 947528947 Comment: - Unclear etiology, patient may be lacking heat at home - TSH normal - Off warming Geoffrey Hugger - AM cortisol normal - APS referral made (4) Lymphedema Code(s): I89.0 - LYMPHEDEMA, NOT ELSEWHERE CLASSIFIED SNOMED Code(s): 752329749 Comment: - Chornic lymphedema with history of recurrent left leg cellulitis on chronic penicillin for suppression - Wound care consult recs noted - Continue patients home PCN suppression, should see wound clinic and ID as an outpatient after DC Status and Disposition: Plan was for patient to go home with [facility] for same day sign on today, however, [facility] declined today. CM working on safe discharge plan and in home nursing services. APS to follow after discharge.
[2018-02-19 15:20] VITALS: BP 126/79
--- NOTE | 2018-02-20 03:35 | DS ---
CC: Dr. Sin; Dr. Castellon * DISCHARGE SUMMARY: DATE OF ADMISSION: 02/15/18 DATE OF LEAVING AGAINST MEDICAL ADVICE: 02/19/18 PRIMARY CARE PROVIDER: Dr. Zurdo Sin. ATTENDING FOR THIS ADMISSION: Dr. Salmon. MY ATTENDING FOR TODAY: Dr. Hanna aCstellon.* (DICTATED BY BLAISE CRAIG NP) HOSPITAL COURSE: Please refer to admission H and P dated 02/15/18; however, in short, the patient presented to the emergency department with complaint of abdominal pain, constipation, was also found to have some hypothermia. The patient has bilateral lower extremity lymphedema with wounds. He has history of recurrent leg cellulitis and is on penicillin for suppression. In any case, the patient was admitted after receiving a CAT scan for his abdominal pain. CAT scan was negative. He did not have any obstruction or significant amount of retained stool, so it was essentially benign. However, his temperature was 87.4 at his core, so he was admitted for hypothermia. He was placed on a Geoffrey Hugger for warming. At that point, there was a question whether the patient had any heat in his home. Also concern that APS should be involved with this case. The patient did receive additional warming in the form of his Geoffrey Hugger. He was nontoxic and did not appear to be septic. His wounds were seen by the wound care nurse, who recommended more aggressive wound care management and wrapping for his legs and also need to reevaluate his penicillin suppression therapy for his recurrent cellulitis and recommended that he see Wound Care more frequently. The patient does have a mild developmental delay, although he is competent and appropriate. The issue we had with him is the patient did not require short-term rehab; however, we felt that it is not safe for him to go back home given the state that he was in upon his arrival. Case Management worked very diligently in trying to get VNS services in house. However, due to his physical location, the patient lives in [place], [facility] were initially set up and were supposed to do same-day sign on today; however [facility] for some reason denied him services this morning and declined to open his case. We discussed this extensively with the patient that we really feel it is necessary for Homecare to be in house for his dressing changes and to ensure that the patient does not have further episodes of hypothermia or go septic. The patient, at that point, stated that he wished to leave today and he was not interested in homecare services. Again, we reinforced with the patient that it may be dangerous for him to leave with no services in house. Even though [facility] is supposed to be following him, we do not know how quickly this will happen and when they will actually be able to see him. When the nursing staff and transplant case manager walked into his room, the patient said "I have called the cab" and was requesting his IV removed and he left against medical advice. PHYSICAL EXAMINATION: Please see progress note from today. DISCHARGE DIAGNOSES: 1. Hypothermia, now resolved. 2. Chronic lymphedema with wounds. 3. Recurrent cellulitis of the lower extremities. 4. Hypertension. 5. Developmental delay. DISPOSITION: The patient did walk out of the hospital on his own accord. Nursing staff did try to reiterate to the patient to return to the emergency department if he had any changes in condition. We highly recommend that he follow up with his primary care provider and wound clinic to have his dressings managed and also for antihypertensives and any further medications the patient may need. The patient left against medical advice at 5:30 p.m. TIME SPENT: Thirty-five minutes. BLAISE CRAIG NP [id number]/JENNYFER #: [id number] MOLLY
== END 2018-02-19 17:15 | disposition left against medical advice (07) | DRG 923 ==
LOC: ED 15:52 → MED 19:46 → OBSVTOIN 02-17 12:54
PROVIDERS: ADMIT Internal Medicine; ATTEND Internal Medicine
DX: T68.XXXA Hypothermia, initial encounter (principal); Z68.44 Body mass index [BMI] 60.0-69.9, adult; L03.116 Cellulitis of left lower limb; L97.909 Non-pressure chronic ulcer of unspecified part of unspecified lower leg with unspecified severity; E66.01 Morbid (severe) obesity due to excess calories; I89.0 Lymphedema, not elsewhere classified; K59.00 Constipation, unspecified; R62.50 Unspecified lack of expected normal physiological development in childhood; R10.9 Unspecified abdominal pain; X31.XXXA Exposure to excessive natural cold, initial encounter; Z79.2 Long term (current) use of antibiotics; Z88.8 Allergy status to other drugs, medicaments and biological substances
CPT/HCPCS: 36415; 74176; 80053; 81003; 82533; 83605; 84443; 85025; 85610; 85730; 87040; 99284; A9270-GY; G0378; G8978-GP-CI; G8979-GP-CI; G8980-GP-CI; J1650; J1940

== ENCOUNTER 2018-03-07 10:39 | Inpatient (IN) | payer MEDICARE ==
[2018-03-07] MEDS ORDERED: LORazepam INJ* 2 MG/ML 1 ML VIAL IV PUSH ONE (10:53)
--- NOTE | 2018-03-07 10:58 | ED ---
Seizure - HPI Summary HPI Summary: Per EMS, 42 y/o male with past medical history of DM, last known to be normal 2- 3d ago. Brought in today by EMS for decreased mental status. EMS states that patient lives alone and family hadn't heard from him in several days so they called the police to make sure he was ok. When police arrived to his home, the patient was unresponsive, except to occasional painful stimuli. On presentation , he has his eyes open with jerking movements but not responding to external stimuli and is unable to give a history. - History Of Current Complaint Time Seen by Provider: 03/07/18 10:45 Hx Obtained From: EMS Hx From Patient Unobtainable Due To: Altered Mental Status Onset/Duration: Other - unknown Severity Of Seizure: Status Epilepticus Location Of Seizure: Eye Deviation - there is eye twitching and eye deviation. this resolves occasionally and the patient will look towards voice, but then it begins again seconds later. Character: Other - there is eye twitching and eye deviation. this resolves occasionally and the patient will look towards voice, but then it begins again seconds later. Aggravating Factor(s): Other - unknown Alleviating Factor(s): Nothing Associated Signs And Symptoms: Impaired Speech, Other - hypothermia - Risk Factors SAH Risk Factors: Negative Meningitis Risk Factors: Negative SDH Risk Factor: Male - Allergies/Home Medications Allergies/Adverse Reactions: Allergies Allergy/AdvReac Type Severity Reaction Status Date / Time levofloxacin [From Levaquin] Allergy Headache Verified 02/15/18 16:01 PMH/Surg Hx/FS Hx/Imm Hx Endocrine/Hematology History: Reports: Hx Diabetes Denies: Hx Anticoagulant Therapy Cardiovascular History: Denies: Hx Atrial Fibrillation History: Denies: Hx Dialysis Sensory History: Reports: Hx Contacts or Glasses Denies: Hx Eye Prosthesis, Hx Deafness, Hx Hearing Aid Opthamlomology History: Reports: Hx Contacts or Glasses Denies: Hx Eye Prosthesis Neurological History: Denies: Hx Developmental Delay Psychiatric History: Denies: Hx Autism Infectious Disease History: Denies: Traveled Outside the [place] in Last 30 Days - Family History Known Family History: Positive: Unknown Negative: Blood Disorder - Social History Alcohol Use: Rare Substance Use Type: Reports: None Smoking Status (MU): Never Smoked Tobacco Review of Systems - ROS Summary Review of Systems Summary: unable to perform ROS secondary to altered mental status and extremis All Other Systems Reviewed And Are Negative: Yes Physical Exam Triage Information Reviewed: Yes Vital Signs Reviewed: Yes Completion Of Physical Exam Limited Due To: Altered Mental Status, Extremis Appearance: Positive: Well-Nourished, Ill-Appearing. Negative: Signs of Trauma Skin: Positive: Cold, Other - chronic lichenification of the legs bilaterally, bright erythema and weeping of legs bilaterally. erythema with satellite lesions in intertriginous areas c/w yeast dermatitis. Head/Face: Positive: Normal Head/Face Inspection Eyes: Positive: JENN - pupils 3mm bilaterally and sluggish, Conjunctiva Clear, Other: - patient with intermittent eye deviation and twitching. ENT: Positive: Normal ENT inspection Neck: Positive: Supple, No Lymphadenopathy Respiratory/Lung Sounds: Positive: Breath Sounds Present, Rales, Rhonchi. Negative: Stridor, Wheezes Cardiovascular: Positive: Bradycardia, Leg Edema Left, Leg Edema Right Abdomen Description: Positive: Soft. Negative: Distended Bowel Sounds: Positive: Present Male Genital Exam: Positive: Normal Genitalia Neurological: Negative: Alert, Oriented to Person Place, Time AVPU Assessment: Pain (Reponds To) - intermittent response to pain and verbal stimuli. intermittent complete lack of response to external stimuli - [place] Coma Scale Best Eye Response: 4 - Spontaneous Best Motor Response: 4 - Withdraws Best Verbal Response: 2 - Incomprehensible Words Coma Scale Total: 10 Glascow Coma Scale Comments: at best, GCS is 10, at worst GCS is 6 Procedures - Central Line Left Jugular Central Line Lumen: triple Central Line Position: internal jugular (L) Anesthesia: local cc's of anesthesia: 1 Complications: none Central Line Post Position: sutured, good blood return, position confirmed w/ CXR - Intubation Time of Intubation: 12:30 Intubation Method: orotracheal Tube Size (cm): 7.5 Medications: Succinylcholine, Versed Breath Sounds after Intubation: equal Intubation Complications: no complications Post Intubation Xray: Yes - ETT in appropriate postiion Diagnostics - Laboratory Result Diagrams: 03/07/18 11:00 03/07/18 14:55 Lab Statement: Any lab studies that have been ordered have been reviewed, and results considered in the medical decision making process. - EKG 10:47 Cardiac Rate: Bradycardia - 38 EKG Rhythm: Sinus Bradycardia ST Segment: Normal Ectopy: None Summary of EKG Findings: Sinus bradycardia and 1st degree AV block. Nonspecific ekg 1311 Cardiac Rate: Bradycardia - 37 EKG Rhythm: Sinus Bradycardia ST Segment: Normal Ectopy: None EKG Comparison: No Significant Change - from previous EKG today - Additional Comments Diagnostic Additional Comments: Q-wave in lead III. Prolonged QRS, Prolonged QTc, ST's normal, t-waves normal. Re-Evaluation - Re-Evaluation First Eval Change: Worse - patient worsening with worsening hypoxia and persistent seizure activity Second Eval Change: Unchanged Comment: patient intubated, not reacting to intubation. no sedation necessary at this time. Will require central line Third Eval Change: Unchanged Comment: patient doing well on ventillator. Central line placed, patient tolerated procedure well. He is reacting intermittently to pain Course/Dx - Course Course Of Treatment: patient was intubated and central line placed. he was hypothermic, so johnson hugger was used and a temperature correia was placed. he remained bradycardic but his blood pressure improved in the ED prior to fluid administration. he remained minimally responsive. CT head negative for ICH. Patient was started on antibiotics and admitted to ICU Assessment/Plan: Assessment: 1. Altered mental status. 2. Status epilepticus. 3. Respiratory failure. 4. Hypothermia. 5. Bradycardia. 6. Encephalopathy. Plan: Treat for possible sepsis of unknown origin. Admit to ICU - Diagnoses Differential Diagnosis/HQI/PQRI: Positive: Drug Toxicity, Encephalitis, Intracranial Bleed, New Onset Seizure, Toxic Exposure, Other - sepsis, CVA Provider Diagnoses: Hypothermia, Status epilepticus, Candidal dermatitis, Acute respiratory failure , Encephalopathy Is Visit Related: No - Physician Notifications Discussed Care of Patient With: Paulino Aguero - agrees with admission to ICU Time Discussed With Above Provider: 13:00 Instructed by Provider To: Admit As Inpatient Admit/Transition Orders Completed By ED Provider: No - Critical Care Time Critical Care Time: 75-104 min - CC time for life threatening illness, multiple evaluations, hemodynamic stability, ventillatory management Discharge - Sign-Out/Discharge Documenting (check all that apply): Patient Departure Patient Received Moderate/Deep Sedation with Procedure: No - Discharge Plan Condition: Critical Disposition: ADMITTED TO [facility] - Billing Disposition and Condition Condition: CRITICAL Disposition: Admitted to [facility]
[2018-03-07 11:20] LABS: Hematocrit 41 % (42-52); Hemoglobin 13.3 g/dl (14.0-18.0); Mean Corpuscular HGB Conc 32 g/dl (31-36); Mean Corpuscular Hemoglobin 27 pg (27-31); Mean Corpuscular Volume 85 fL (80-94); Red Blood Count 4.86 10^6/ul (4.00-5.40); Red Cell Distribution Width 18 % (10.5-15); White Blood Count 2.1 10^3/ul (3.5-10.8)
[2018-03-07] MEDS ORDERED: Etomidate* 2 MG/ML 20 ML VIAL (40 MG) ONE (11:20)
[2018-03-07] MEDS ORDERED: Succinylcholine* 20 MG/ML 10 ML VIAL ONE (11:20)
[2018-03-07] MEDS ORDERED: Rocuronium* 10 MG/ML VIAL ONE (11:20)
[2018-03-07 11:21] LABS: Activated Partial Thrombo Time 46.5 seconds (26.0-36.3); INR 1.09 (0.77-1.02)
[2018-03-07 11:26] LABS: ALT 30 U/L (7-52); AST 28 U/L (13-39); Albumin 3.3 g/dL (3.2-5.2); Albumin/Globulin Ratio 0.8 (1-3); Alkaline Phosphatase 93 U/L (34-104); BUN/Creatinine Ratio 43.8 (8-20); Blood Urea Nitrogen 39 mg/dL (6-24); C Reactive Protein 50.03 mg/L (<8.01); CO2 Carbon Dioxide 31 mmol/L (22-32); Calcium 9.5 mg/dL (8.6-10.3); Chloride 107 mmol/L (101-111); EGFR African American 112.9 (>60); EGFR Non-African American 93.3 (>60); Globulin 4.3 g/dL (2-4); Glucose 114 mg/dL (70-100); Sodium 144 mmol/L (135-145); Total Protein 7.6 g/dL (6.4-8.9)
[2018-03-07 11:42] LABS: Anion Gap 6 mmol/L (2-11); Potassium 5.4 mmol/L (3.5-5.0)
[2018-03-07 11:47] LABS: ABS Basophils 0 10^3/ul (0-0.2); ABS Eosinophils 0 10^3/ul (0-0.6); ABS Lymphocytes 0.4 10^3/ul (1.0-4.8); ABS Monocytes 0.1 10^3/ul (0-0.8); ABS Neutrophils 1.6 10^3/ul (1.5-7.7); ABS Nucleated RBC 0 10^3/ul; Acetaminophen < 15 mcg/mL; Alcohol < 10 mg/dL (<10); Eosinophil % 0.2 %; Lymphocyte % 19.7 %; Mean Platelet Volume 8.6 fL (7.4-10.4); Nucleated Red Blood Cells % 0.9; Platelet Count 73 10^3/ul (150-450); Salicylate < 2.50 mg/dL (<30)
[2018-03-07] MEDS ORDERED: Lidocaine 1% INJ* 10 MG/ML 30 ML SDV ONE (11:59)
[2018-03-07 12:36] LABS: Urine Appearance Cloudy; Urine Bilirubin Negative (Negative); Urine Blood Negative (Negative); Urine Color Amber; Urine Glucose Negative (Negative); Urine Ketones Negative (Negative); Urine Nitrite Negative (Negative); Urine Protein Negative (Negative); Urine Specific Gravity 1.028 (1.010-1.030); Urine Urobilinogen Negative (Negative)
[2018-03-07 12:40] LABS: Erythrocyte Sed Rate 57 mm/Hr (0-14)
[2018-03-07] MEDS ORDERED: fentaNYL INFUSION 50 MCG/ML* 2,500 MCG/50 ML BAG IV SCH (13:00)
[2018-03-07 13:02] LABS: Barbiturates Urine Screen None Detected (None Detect); Benzodiazepine Urine Screen None Detected (None Detect); Urine Cannabinoids Screen None Detected (None Detect)
[2018-03-07 13:07] LABS: Amylase 34 U/L (29-103); Creatine Kinase 19 U/L (10-223)
[2018-03-07] MEDS ORDERED: Piperacillin/Tazobac ADVAN(*) 3.375 GM in NS 0.9% 100 ML* 100 ML IVPB ONE (13:21)
[2018-03-07 13:22] LABS: TSH (Thyroid Stimulating Horm) 8.21 mcIU/mL (0.34-5.60)
[2018-03-07] MEDS: Midazolam IV for DRIP* 100 MG in NS 0.9% 100 ML* 80 ML IV SCH ×2 (13:25→23:30)
[2018-03-07] MEDS: NS 0.9% 1000 ML** 1,000 ML IV.FLUID IV ONE ×2 (13:42→16:07)
--- NOTE | 2018-03-07 13:53 | HP ---
History of Present Illness - History of Present Illness Reason for Visit: altered mental status, intubation for airway protection History of Present Illness: History obtained from chart review 42 y/o male with past medical history of DM, last known to be normal 2-3d ago. Brought in today by EMS for decreased mental status. EMS states that patient lives alone and family hadn't heard from him in several days so they called the police to make sure he was ok. When police arrived to his home, the patient was unresponsive, except to occasional painful stimuli. On presentation, he has his eyes open with jerking movements but not responding to external stimuli and is unable to give a history. - Past Medical History Endocrine: Diabetes Review of Systems - Review of Systems Other: unable to obtain optimally due to patient status - Medications/Allergies Allergies/Adverse Reactions: Allergies Allergy/AdvReac Type Severity Reaction Status Date / Time levofloxacin [From Levaquin] Allergy Headache Verified 02/15/18 16:01 Medications: Current Medications Fentanyl Citrate (Fentanyl Infusion Bag 50 Mcg/Ml 50 Ml) 2,500 mcg in 50 mls @ 0.5 mls/hr IV Q72H UZIEL; Protocol Last Admin: 03/07/18 13:24 Dose: 0.5 mls/hr Midazolam HCl 100 mg/ Sodium (Chloride) 100 mls @ 10 mls/hr IV Q10H UZIEL; Protocol Last Admin: 03/07/18 13:25 Dose: 10 mls/hr Piperacillin Sod/Tazobactam (Sod 3.375 gm/ Sodium Chloride) 100 mls @ 200 mls/ hr IVPB ED ONCE ONE Stop: 03/07/18 13:50 Last Admin: 03/07/18 13:46 Dose: 200 mls/hr Vancomycin HCl 2,000 mg/ (Sodium Chloride) 500 mls @ 250 mls/hr IVPB ED ONCE ONE Stop: 03/07/18 15:59 Exam - Exam Vital Signs: Vital Signs (72 hours) 03/07/18 03/07/18 03/07/18 10:43 11:00 11:01 Temperature 80.0 F Pulse Rate 38 38 Respiratory 21 20 21 Rate Blood Pressure 0/0 (mmHg) O2 Sat by Pulse 95 96 Oximetry 03/07/18 03/07/18 03/07/18 11:36 11:45 12:00 Temperature 81.7 F 81.7 F 81.7 F Pulse Rate 34 36 35 Respiratory Rate Blood Pressure 92/51 92/44 (mmHg) O2 Sat by Pulse 100 100 100 Oximetry 03/07/18 03/07/18 03/07/18 12:14 12:44 13:00 Temperature 81.7 F 82.0 F 82.2 F Pulse Rate 37 37 38 Respiratory Rate Blood Pressure 97/52 109/73 (mmHg) O2 Sat by Pulse 97 94 96 Oximetry 03/07/18 03/07/18 03/07/18 13:05 13:14 13:24 Temperature 82.2 F 82.4 F Pulse Rate 38 38 Respiratory 24 Rate Blood Pressure 117/76 111/78 (mmHg) O2 Sat by Pulse 95 96 Oximetry 03/07/18 13:25 Temperature Pulse Rate Respiratory 24 Rate Blood Pressure (mmHg) O2 Sat by Pulse Oximetry General: Mild distress, Other - chronically ill, malodorous, severely morbidly obese HEENT: Atraumatic, PERRLA Lungs: Normal air movement Cardiovascular: Regular rate, Normal S1, Normal S2 Abdomen: Soft, No tenderness, Other - obese Extremities: Other - chronic skin changes with lymphedema Neurological: Other - unresponsive, responds to voice Assessment/Plan - Assessment/Plan Assessment: # Acute encephalopathy # Acute respiratory failure due to hypoxemia # Morbid obesity # Suspected sepsis # Skin and soft tissue infection # pancytopenia # hyperkalemia Plan: # Acute encephalopathy # Acute respiratory failure due to hypoxemia # Morbid obesity # Suspected sepsis # Skin and soft tissue infection # pancytopenia # hyperkalemia # Bilateral pulmonary opacities r/o multifocal PNA vs edema - mechanical ventilation - adjust vent per blood gas - monitor labs - bronchodilators - zosyn and vancomycin - repeat pm K+ - r/o seizure with stat EEG - TTE - Pending CTH w/o contrast DVT ppx: SQH GI ppx: H2B Full code Critical care issues: MV, unstable, sepsis CC time: 75 mins
[2018-03-07] MEDS ORDERED: Vancomycin(*) 2,000 MG in NS 0.9% 500 ML* 500 ML IVPB ONE (14:00)
[2018-03-07] MEDS ORDERED: Vancomycin(*) 1,000 MG VIAL IVPB SCH (14:00)
[2018-03-07 14:06] LABS: Influenza A Molecular NEGATIVE (Negative); Influenza B Molecular NEGATIVE (Negative)
[2018-03-07] MEDS ORDERED: Perflutren Lipid Microsphere* 3 ML VIAL ONE (14:45)
[2018-03-07] MEDS ORDERED: D5W IV ONE (15:41)
[2018-03-07] MEDS ORDERED: LEVOTHYROXINE IV ONE (15:41)
[2018-03-07] MEDS ORDERED: Levothyroxine INJ* 100 MCG/5 ML VIAL IV ONE (16:00)
--- NOTE | 2018-03-07 16:19 | ECHO ---
Patient: MARCELLA SARGENT [facility] Rec#: [id number] : 1975 Date: 03/07/2018 Age: 42y Height: 178 cm / 70.1 in Weight: 193 kg / 425.4 lbs Sex: M BSA: 2.88 Room#: ICU 8 Admit Date#: 03/07/2018 Type: Inpatient Referring: Paulino Aguero Reading: Sanjeev Garcia DO Hobbing Machine Operator: Mandy Willingham,BOOCS,RDMS CC: Zurdo Sin MD Transthoracic Echocardiogram Indication: Pulm Edema, ABN EKG BP: 111/78 HR: 35 Rhythm: Bradycardia Findings History: DM, chronic lymphedema Technical Comments: The study is technically limited due to patient body habitus. The study is technically limited due to patient being intubated and on a ventilator. Left Ventricle: The left ventricular chamber size is normal. Mild concentric left ventricular hypertrophy is observed. Global left ventricular wall motion and contractility are within normal limits. There is normal left ventricular systolic function. The estimated ejection fraction is greater than 65%. The assessment of diastolic function is non-diagnostic. Left Atrium: The left atrium is mild to moderately dilated. Right Ventricle: The right ventricle is moderately dilated. The right ventricular global systolic function is mildly reduced. Right Atrium: The right atrium is moderately dilated. Aortic Valve: The aortic valve is trileaflet. Systolic excursion of the aortic valve is normal. There is aortic annular calcification.that is mild There is no evidence of aortic regurgitation. There is no evidence of aortic stenosis. Mitral Valve: Moderate mitral annular calcification present. The mitral valve leaflets are mildly thickened. There is mild mitral regurgitation. There is no evidence of mitral stenosis. Tricuspid Valve: The tricuspid valve leaflets are normal. There is mild tricuspid regurgitation. No pulmonary hypertension is noted. Pulmonic Valve: The pulmonic valve structure is not well visualized. There is no evidence of pulmonic valve thickening. There is a trace pulmonic regurgitation. Pericardium: There is no significant pericardial effusion. Pulmonary Artery: The main pulmonary artery is not well visualized. Venous: Unable to accurately comment on the size collapsibility of the IVC as the patient in known to be on mechanical ventilation. The inferior vena cava is dilated. Contrast: Definity was used to optimize study. A total of 2 ml was given by patient's RN (Tita). Conclusions The left ventricular chamber size is normal. Mild concentric left ventricular hypertrophy is observed. The left ventricle LVEF is normal The estimated ejection fraction is 70%. The left atrium is mild to moderately dilated. The right ventricle is moderately dilated. The right ventricular global systolic function is mildly reduced. No pulmonary hypertension is noted. There is mitral valve annulus and valvular calcification and thickening that is not well visualized. There is no mitral stenosis. There is mild mitral regurgitation The study is technically limited due to patient body habitus. Definity was used to optimize study. None prior for comparison at time of interpretation Measurements Name Value Normal Range RVIDd (AP) 2D 4.9 cm (0.9 - 2.6) RAd ISD 4CH 6.7 cm (3.4 - 4.9) RA (A4C)W 5.2 cm (2.9 - 4.6) IVSd (2D) 1.2 cm (0.6 - 1) LVPWd (2D) 1.4 cm (0.6 - 1) LVIDd (2D) 4.4 cm (3.6 - 5.4) LVIDs (2D) 1.7 cm - LV FS (2D) 62 % (25 - 45) Aortic Annulus 2.6 cm (1.4 - 2.6) Ao root diameter (2D) 3.2 cm (2.1 - 3.5) Ascending Ao 3.4 cm (2.1 - 3.4) Aortic arch 2.5 cm (1.8 - 3.4) LA dimension (AP) 2D 5.8 cm (2.3 - 3.8) LAd ISD 4CH 8.6 cm (2.9 - 5.3) LA ISD 4CH W 6.7 cm (2.5 - 4.5) Name Value Normal Range LA ESV BP (A/L) index 26 ml/m2 - Name Value Normal Range MV E-wave Vmax 1 m/sec - MV deceleration time 272 msec - MV A-wave Vmax 0.7 m/sec - MV E:A ratio 1.5 ratio - LV lateral e' Vmax 0.06 m/sec - LV E:e' lateral ratio 17 ratio - Name Value Normal Range AV Vmax 1 m/sec - AV VTI 35 cm - AV peak gradient 4 mmHg - AV mean gradient 1 mmHg - LVOT Vmax 0.6 m/sec - LVOT VTI 22 cm - LVOT peak gradient 1.4 mmHg - LVOT mean gradient 1 mmHg - ANN-MARIE Vmax 1 m/sec - Name Value Normal Range MV Vmax 1.3 m/sec - MV VTI 61 cm - MV peak gradient 7 mmHg - MV mean gradient 2 mmHg - MV PHT 113 msec - MVA (PHT) 2 cm2 - Name Value Normal Range TR Vmax 2.4 m/sec - TR peak gradient 23 mmHg - RAP 8 mmHg - RVSP 31 mmHg - IVC diameter 3 cm - Name Value Normal Range PV Vmax 0.6 m/sec - PV peak gradient 1.4 mmHg -
[2018-03-07 17:14] LABS: T4, Total 6.69 g/dL (6.09-12.23)
[2018-03-07 17:18] LABS: Free T3 2.6 pg/mL (2.5-3.9)
[2018-03-07] MEDS: EPINEPHrine SYR 0.1MG/ML* 1 MG in D5W 250 ML BAG* 240 ML IV SCH ×4 (17:28→23:30)
[2018-03-07] MEDS ORDERED: Hydrocortisone INJ* 100 MG VIAL IV ONE (20:00)
[2018-03-07] MEDS: Hydrocortisone INJ* 100 MG VIAL IV SCH (20:32)
[2018-03-07] MEDS: Nystatin TOP POWDER* 15 GM BTL TOPICAL SCH (22:51)
[2018-03-08] MEDS ORDERED: EPINEPHRINE IV SCH ×2 (00:24→03:00)
[2018-03-08] MEDS ORDERED: D5W IV SCH ×2 (00:24→03:00)
[2018-03-08] MEDS: Hydrocortisone INJ* 100 MG VIAL IV SCH ×4 (01:36→20:15)
[2018-03-08] MEDS ORDERED: Propofol* 10 MG/ML 20 ML BTL ONE (02:35)
[2018-03-08] MEDS ORDERED: Propofol* 10 MG/ML 20 ML BTL IV ONE (03:00)
[2018-03-08] MEDS: Propofol* 100 ML IV SCH ×3 (03:10→08:17)
--- NOTE | 2018-03-08 03:10 | PN ---
Progress Note - Progress Note Date of Service: 03/08/18 Note: Called by the bedside for pt's changed breathing patter. Pt's RR was >30, noted paradoxical abd breathing with very decreased breath sound and TV 150-350 ml. Pt was taken off vent and bagged , then placed on Vent (AC) after getting a dose of Propofol 20 and appeared to be doing slightly better (TV >500). CXR shows vascular congestion, UO had been close to 30 ml/hr, but pt is receiving IV meds at >200 ml/hr volume. SBP 89 on Epinehrine gtt at 20 mcg. Suspect pt is volume overladed, but then low SBP does not allow to use diuretic. Also appear that Propofol worked better to improve WOB than Versed and Fentanyl Plan: Epi gtt is a lot of volume-approx 150 ml/hr, will switch to dopamine Will try to wean off Versed and Fentanyl and use Propofol if BP allows ABG pending
[2018-03-08] MEDS: DOPamine 800 MG/250 ML IVPREM* 800 MG/250 ML ML CENTR SCH ×4 (03:11→23:43)
[2018-03-08] MEDS ORDERED: Piperacillin/Tazobac ADVAN(*) 3.375 GM in NS 0.9% 100 ML* 100 ML IVPB ONE (03:51)
[2018-03-08] MEDS ORDERED: Zosyn per Pharmacy* NOTE FOLLOW UP SCH (04:00)
[2018-03-08 06:07] LABS: Hematocrit 38 % (42-52); Hemoglobin 12.2 g/dl (14.0-18.0); Mean Corpuscular HGB Conc 32 g/dl (31-36); Mean Corpuscular Hemoglobin 27 pg (27-31); Mean Corpuscular Volume 85 fL (80-94); Platelet Count 95 10^3/ul (150-450); Red Blood Count 4.45 10^6/ul (4.00-5.40); Red Cell Distribution Width 18 % (10.5-15); White Blood Count 7.8 10^3/ul (3.5-10.8)
[2018-03-08 06:18] LABS: BUN/Creatinine Ratio 30.5 (8-20); Calcium 8.2 mg/dL (8.6-10.3); EGFR African American 72.3 (>60); EGFR Non-African American 59.7 (>60); Magnesium 1.5 mg/dL (1.9-2.7); Phosphorus 3.4 mg/dL (2.5-5.0); Potassium 4.2 mmol/L (3.5-5.0)
[2018-03-08 06:34] LABS: Lymphocytes % 6 %; Myelocytes % 3 % (0-1); Neutrophil % 57 %
[2018-03-08 06:43] LABS: Immature Granulocytes 37 % (0-9)
[2018-03-08 06:47] LABS: ABS Neutrophils 7.332 10^3/ul (1.5-7.7)
[2018-03-08] MEDS ORDERED: Magnesium Sulfate IV* 3 GM in NS 0.9% 100 ML* 100 ML IVPB ONE (07:30)
[2018-03-08] MEDS: Levothyroxine INJ* 100 MCG/5 ML VIAL IV SCH (08:21)
[2018-03-08] MEDS: ZOSYN 3.375 GM Q8H per EXTENDED INFUSION IVPB SCH ×6 (08:25→23:45)
[2018-03-08] MEDS: Nystatin TOP POWDER* 15 GM BTL TOPICAL SCH ×3 (08:26→21:09)
[2018-03-08] MEDS ORDERED: Bisacodyl SUPP* 10 MG SUPP PR PRN (11:49)
[2018-03-08] MEDS ORDERED: Magnesium Sulfate 2 GM IV* 2 GM/50 ML BAG IVPB ONE (11:52)
--- NOTE | 2018-03-08 12:48 | PN ---
Date of Service: 03/08/18 Critical Care Services: 65 yo male with hx/o emphysema and chronic hypoxemia continuous 2LPM of supplemental O2 admitted to the ICU after being intubated in the setting of acute respiratory arrest with resultant cardiac arrest. History obtained from chart review and conversation with the sister given patient status. According to ED notes, patient [facility] ambulance [facility] initial complains of worsening shortness of breath for 2 days. During EMS evaluation, patient became unresponsive in the setting of respiratory arrest with resultant cardiac arrest (asystole, Vfib, asytole- 1 x Epi, 5 minutes of ACLS) at 10:30 with ROSC in the ambulance. Patient was able to walk to stretcher himself before going into respiratory arrest then cardiac arrest. Patient was intubated in the ED According to sister, patient has been having difficulty with breathing for a couple of days. He was made to quit cigarettes by her 2 weeks ago due to worsening respiratory status. 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 No noted fever, cough, chest pain, changes in bowel/urinary habits, hemoptysis. 03/07/18: DOA, intubation Vital Signs: Temp Pulse Resp BP SpO2 FiO2 99.5 F 95 22 100/49 95 50 03/08/18 11:01 03/08/18 11:03/08/18 11:00 03/08/18 11:03/08/18 11:03/08 08:00 Physical Exam: General: No acute distress, Other - unresponsive, intubated, withdraws to pain HEENT: Atraumatic, PERRLA, Other - dry Lungs: Other - diminished breath sounds with occasional wheezes Cardiovascular: Regular rate, Normal S1, Normal S2 Abdomen: Normal bowel sounds, Soft, No tenderness, No hepatospenomegaly Extremities: No clubbing, No cyanosis, No edema Skin: No breakdown Neurological: Other - unresponsive, + gag, withdraws to pain Fluid Balance (Past 24 Hours): I= O= Net Intake & Output 03/06/18 03/07/18 03/08/18 03/09/18 06:59 06:59 06:59 06:59 Intake Total 1914 Output Total 1002 155 Balance 912 -155 Weight 432 lb 5.086 oz Intake: IV Fluids 19 NS (0.9%) 19 IVPB 124 ABX - ZOSYN 124 Medicated IV 1771 CC - Dopamine 109 CC - Epinephrine 1562 CC - Propofol/Diprivan 100 Output: [place] 1002 155 ADLs: Meal Record Start: 03/07/18 12: 57 Freq: 09,13,18 Status: Active Protocol: Created 03/07/18 12:57 System (Rec: 03/07/18 12:57 System ICU-C12) Document 03/07/18 13:00 [id number] (Rec: 03/07/18 13:54 [id number] ICU-C25) Document 03/07/18 17:07 [id number] (Rec: 03/07/18 17:07 [id number] ICU-C25) Document 03/08/18 08:59 [id number] (Rec: 03/08/18 08:59 [id number] ICU-C06) Intake and Output Start: 03/07/18 11: 04 Freq: Status: Active Protocol: Created 03/07/18 11:05 System (Rec: 03/07/18 11:05 System EDRM-C16) Document 03/07/18 12:25 [id number] (Rec: 03/07/18 12:25 [id number] EDRM-C16) Intake and Output Start: 03/07/18 12: 57 Freq: Q1HR Status: Active Protocol: Created 03/07/18 12:57 System (Rec: 03/07/18 12:57 System ICU-C12) Document 03/07/18 16:27 [id number] (Rec: 03/07/18 16:27 [id number] ICU-C25) Document 03/07/18 17:00 [id number] (Rec: 03/07/18 17:01 [id number] ICU-C25) Document 03/07/18 18:00 [id number] (Rec: 03/07/18 18:39 [id number] ICU-C25) Document 03/07/18 19:53 [id number] (Rec: 03/07/18 19:54 [id number] ICU-C06) Document 03/07/18 22:00 [id number] (Rec: 03/07/18 22:15 [id number] ICU-C06) Document 03/07/18 23:00 [id number] (Rec: 03/07/18 23:20 [id number] ICU-M19) Document 03/08/18 00:00 [id number] (Rec: 03/08/18 01:10 [id number] ICU-C06) Document 03/08/18 01:00 [id number] (Rec: 03/08/18 01:34 [id number] ICU-M19) Document 03/08/18 02:00 [id number] (Rec: 03/08/18 02:55 [id number] ICU-C06) Document 03/08/18 04:00 [id number] (Rec: 03/08/18 04:48 [id number] ICU-C06) Document 03/08/18 06:00 [id number] (Rec: 03/08/18 06:11 [id number] ICU-M19) Document 03/08/18 07:00 [id number] (Rec: 03/08/18 09:01 [id number] ICU-C06) Document 03/08/18 08:00 [id number] (Rec: 03/08/18 09:02 [id number] ICU-C06) Document 03/08/18 09:00 [id number] (Rec: 03/08/18 09:02 [id number] ICU-C06) Document 03/08/18 10:00 [id number] (Rec: 03/08/18 10:53 [id number] ICU-C06) Document 03/08/18 10:53 [id number] (Rec: 03/08/18 10:53 [id number] ICU-C06) Labs: Laboratory Results - last 24 hr 03/07/18 03/07/18 03/07/18 11:00 11:00 12:22 WBC RBC Hgb Hct MCV MCH MCHC RDW Plt Count MPV Neut % (Auto) Lymph % (Auto) [place] % (Auto) Eos % (Auto) Baso % (Auto) Absolute Neuts (auto) Absolute Lymphs (auto) Absolute Monos (auto) Absolute Eos (auto) Absolute Basos (auto) Absolute Nucleated RBC Immature Gran % Neutrophils % Band Neutrophils % Lymphocytes % Myelocytes % Nucleated RBC % Abs Neuts (Manual) Abs Lymphs (Manual) Normal RBC Morphology Macrocytosis ESR 57 H Hem Pathologist Commnt Patient Temperature ABG pH ABG pH (Temp Correct) ABG pCO2 ABG pCO2 (Temp Corrct ABG pO2 ABG pO2 (Temp Correct ABG HCO3 ABG O2 Saturation ABG Base Excess VBG pH VBG pCO2 VBG pO2 VBG HCO3 VBG O2 Saturation VBG Base Excess Respiration Rate O2 Delivery Device Ventilator Type Vent Mode FiO2 Inspiratory Time PEEP Pressure Support Pressure Control EPAP IPAP BiPAP Sodium 144 Potassium 5.4 H Chloride 107 Carbon Dioxide 31 Anion Gap 6 BUN 39 H Creatinine 0.89 Est GFR ( Amer) 112.9 Est GFR (Non-Af Amer) 93.3 BUN/Creatinine Ratio 43.8 H Glucose 114 H Hemoglobin A1c Lactic Acid Calcium 9.5 Phosphorus Magnesium Total Bilirubin 0.50 AST 28 ALT 30 Alkaline Phosphatase 93 Total Creatine Kinase 19 Troponin I 0.00 C-Reactive Protein 50.03 H Total Protein 7.6 Albumin 3.3 Globulin 4.3 H Albumin/Globulin Ratio 0.8 L Amylase 34 Lipase 16 TSH 8.21 H Thyroxine (T4) Free T3 Total T3 Cortisol Urine Color Stephania Urine Appearance Cloudy Urine pH 5.0 Ur Specific Hollis 1.028 Urine Protein Negative Urine Ketones Negative Urine Blood Negative Urine Nitrate Negative Urine Bilirubin Negative Urine Urobilinogen Negative Ur Leukocyte Esterase Negative Urine Glucose Negative Urine Ascorbic Acid * A Salicylates < 2.50 Urine Opiates Screen Acetaminophen < 15 Ur Barbiturates Screen Ur Phencyclidine Scrn Ur Amphetamines Screen U Benzodiazepines Scrn Urine Cocaine Screen U Cannabinoids Screen Serum Alcohol < 10 Influenza A (Rapid) Influenza B (Rapid) 03/07/18 03/07/18 03/07/18 12:22 13:54 14:55 WBC RBC Hgb Hct MCV MCH MCHC RDW Plt Count MPV Neut % (Auto) Lymph % (Auto) [place] % (Auto) Eos % (Auto) Baso % (Auto) Absolute Neuts (auto) Absolute Lymphs (auto) Absolute Monos (auto) Absolute Eos (auto) Absolute Basos (auto) Absolute Nucleated RBC Immature Gran % Neutrophils % Band Neutrophils % Lymphocytes % Myelocytes % Nucleated RBC % Abs Neuts (Manual) Abs Lymphs (Manual) Normal RBC Morphology Macrocytosis ESR Hem Pathologist Commnt Patient Temperature ABG pH ABG pH (Temp Correct) ABG pCO2 ABG pCO2 (Temp Corrct ABG pO2 ABG pO2 (Temp Correct ABG HCO3 ABG O2 Saturation ABG Base Excess VBG pH VBG pCO2 VBG pO2 VBG HCO3 VBG O2 Saturation VBG Base Excess Respiration Rate O2 Delivery Device Ventilator Type Vent Mode FiO2 Inspiratory Time PEEP Pressure Support Pressure Control EPAP IPAP BiPAP Sodium Potassium Chloride Carbon Dioxide Anion Gap BUN Creatinine Est GFR ( Amer) Est GFR (Non-Af Amer) BUN/Creatinine Ratio Glucose Hemoglobin A1c Lactic Acid 1.2 Calcium Phosphorus Magnesium Total Bilirubin AST ALT Alkaline Phosphatase Total Creatine Kinase Troponin I C-Reactive Protein Total Protein Albumin Globulin Albumin/Globulin Ratio Amylase Lipase TSH Thyroxine (T4) Free T3 Total T3 Cortisol Urine Color Urine Appearance Urine pH Ur Specific Holl[place] Urine Protein Urine Ketones Urine Blood Urine Nitrate Urine Bilirubin Urine Urobilinogen Ur Leukocyte Esterase Urine Glucose Urine Ascorbic Acid Salicylates Urine Opiates Screen None detected Acetaminophen Ur Barbiturates Screen None detected Ur Phencyclidine Scrn None detected Ur Amphetamines Screen None detected U Benzodiazepines Scrn None detected Urine Cocaine Screen None detected U Cannabinoids Screen None detected Serum Alcohol Influenza A (Rapid) Negative Influenza B (Rapid) Negative 03/07/18 03/07/18 03/07/18 14:55 16:03 17:55 WBC RBC Hgb Hct MCV MCH MCHC RDW Plt Count MPV Neut % (Auto) Lymph % (Auto) [place] % (Auto) Eos % (Auto) Baso % (Auto) Absolute Neuts (auto) Absolute Lymphs (auto) Absolute Monos (auto) Absolute Eos (auto) Absolute Basos (auto) Absolute Nucleated RBC Immature Gran % Neutrophils % Band Neutrophils % Lymphocytes % Myelocytes % Nucleated RBC % Abs Neuts (Manual) Abs Lymphs (Manual) Normal RBC Morphology Macrocytosis ESR Hem Pathologist Commnt Patient Temperature ABG pH ABG pH (Temp Correct) ABG pCO2 ABG pCO2 (Temp Corrct ABG pO2 ABG pO2 (Temp Correct ABG HCO3 ABG O2 Saturation ABG Base Excess VBG pH 7.34 VBG pCO2 51 VBG pO2 49.0 H VBG HCO3 25.2 VBG O2 Saturation 84.6 H VBG Base Excess 0.9 Respiration Rate O2 Delivery Device Ventilator Type Vent Mode FiO2 Inspiratory Time PEEP Pressure Support Pressure Control EPAP IPAP BiPAP Sodium Potassium 5.0 Chloride Carbon Dioxide Anion Gap BUN Creatinine Est GFR ( Amer) Est GFR (Non-Af Amer) BUN/Creatinine Ratio Glucose Hemoglobin A1c Lactic Acid Calcium Phosphorus Magnesium Total Bilirubin AST ALT Alkaline Phosphatase Total Creatine Kinase Troponin I C-Reactive Protein Total Protein Albumin Globulin Albumin/Globulin Ratio Amylase Lipase TSH Thyroxine (T4) 6.69 Free T3 2.60 Total T3 68 L Cortisol 11.83 Urine Color Urine Appearance Urine pH Ur Specific Hollis Urine Protein Urine Ketones Urine Blood Urine Nitrate Urine Bilirubin Urine Urobilinogen Ur Leukocyte Esterase Urine Glucose Urine Ascorbic Acid Salicylates Urine Opiates Screen Acetaminophen Ur Barbiturates Screen Ur Phencyclidine Scrn Ur Amphetamines Screen U Benzodiazepines Scrn Urine Cocaine Screen U Cannabinoids Screen Serum Alcohol Influenza A (Rapid) Influenza B (Rapid) 03/08/18 03/08/18 03/08/18 00:30 02:54 05:45 WBC 7.8 RBC 4.45 Hgb 12.2 L Hct 38 L MCV 85 MCH 27 MCHC 32 RDW 18 H Plt Count 95 L MPV 9.0 Neut % (Auto) Not Reportable Lymph % (Auto) Not Reportable [place] % (Auto) Not Reportable Eos % (Auto) Not Reportable Baso % (Auto) Not Reportable Absolute Neuts (auto) Not Reportable Absolute Lymphs (auto) Not Reportable Absolute Monos (auto) Not Reportable Absolute Eos (auto) Not Reportable Absolute Basos (auto) Not Reportable Absolute Nucleated RBC Not Reportable Immature Gran % 37 H Neutrophils % 57 Band Neutrophils % 34 H Lymphocytes % 6 Myelocytes % 3 H Nucleated RBC % Not Reportable Abs Neuts (Manual) 7.332 Abs Lymphs (Manual) 0.468 L Normal RBC Morphology Normal Macrocytosis ESR Hem Pathologist Commnt Patient Temperature Not Reportable Not Reportable ABG pH 7.31 L 7.30 L ABG pH (Temp Correct) Not Reportable Not Reportable ABG pCO2 48 H 47 H ABG pCO2 (Temp Corrct Not Reportable Not Reportable ABG pO2 73 L 102 H ABG pO2 (Temp Correct Not Reportable Not Reportable ABG HCO3 22.9 22.1 ABG O2 Saturation 96.8 99.3 H ABG Base Excess -2.5 L -3.6 L VBG pH VBG pCO2 VBG pO2 VBG HCO3 VBG O2 Saturation VBG Base Excess Respiration Rate 16 16 O2 Delivery Device vent vent Ventilator Type Not Reportable 550 Vent Mode Pcv Cmv FiO2 40 50 Inspiratory Time 1.0 1.0 PEEP 5 5 Pressure Support Not Reportable Not Reportable Pressure Control 20 Not Reportable EPAP Not Reportable Not Reportable IPAP Not Reportable Not Reportable BiPAP Not Reportable Not Reportable Sodium Potassium Chloride Carbon Dioxide Anion Gap BUN Creatinine Est GFR ( Amer) Est GFR (Non-Af Amer) BUN/Creatinine Ratio Glucose Hemoglobin A1c Lactic Acid Calcium Phosphorus Magnesium Total Bilirubin AST ALT Alkaline Phosphatase Total Creatine Kinase Troponin I C-Reactive Protein Total Protein Albumin Globulin Albumin/Globulin Ratio Amylase Lipase TSH Thyroxine (T4) Free T3 Total T3 Cortisol Urine Color Urine Appearance Urine pH Ur Specific Holl[place] Urine Protein Urine Ketones Urine Blood Urine Nitrate Urine Bilirubin Urine Urobilinogen Ur Leukocyte Esterase Urine Glucose Urine Ascorbic Acid Salicylates Urine Opiates Screen Acetaminophen Ur Barbiturates Screen Ur Phencyclidine Scrn Ur Amphetamines Screen U Benzodiazepines Scrn Urine Cocaine Screen U Cannabinoids Screen Serum Alcohol Influenza A (Rapid) Influenza B (Rapid) 03/08/18 03/08/18 05:45 05:45 WBC RBC Hgb Hct MCV MCH MCHC RDW Plt Count MPV Neut % (Auto) Lymph % (Auto) [place] % (Auto) Eos % (Auto) Baso % (Auto) Absolute Neuts (auto) Absolute Lymphs (auto) Absolute Monos (auto) Absolute Eos (auto) Absolute Basos (auto) Absolute Nucleated RBC Immature Gran % Neutrophils % Band Neutrophils % Lymphocytes % Myelocytes % Nucleated RBC % Abs Neuts (Manual) Abs Lymphs (Manual) Normal RBC Morphology Macrocytosis ESR Hem Pathologist Commnt Patient Temperature ABG pH ABG pH (Temp Correct) ABG pCO2 ABG pCO2 (Temp Corrct ABG pO2 ABG pO2 (Temp Correct ABG HCO3 ABG O2 Saturation ABG Base Excess VBG pH VBG pCO2 VBG pO2 VBG HCO3 VBG O2 Saturation VBG Base Excess Respiration Rate O2 Delivery Device Ventilator Type Vent Mode FiO2 Inspiratory Time PEEP Pressure Support Pressure Control EPAP IPAP BiPAP Sodium 144 Potassium 4.2 Chloride 111 Carbon Dioxide 24 Anion Gap 9 BUN 40 H Creatinine 1.31 H Est GFR ( Amer) 72.3 Est GFR (Non-Af Amer) 59.7 BUN/Creatinine Ratio 30.5 H Glucose 125 H Hemoglobin A1c 5.7 H Lactic Acid Calcium 8.2 L Phosphorus 3.4 Magnesium 1.5 L Total Bilirubin AST ALT Alkaline Phosphatase Total Creatine Kinase Troponin I C-Reactive Protein Total Protein Albumin Globulin Albumin/Globulin Ratio Amylase Lipase TSH Thyroxine (T4) Free T3 Total T3 Cortisol Urine Color Urine Appearance Urine pH Ur Specific [place] Urine Protein Urine Ketones Urine Blood Urine Nitrate Urine Bilirubin Urine Urobilinogen Ur Leukocyte Esterase Urine Glucose Urine Ascorbic Acid Salicylates Urine Opiates Screen Acetaminophen Ur Barbiturates Screen Ur Phencyclidine Scrn Ur Amphetamines Screen U Benzodiazepines Scrn Urine Cocaine Screen U Cannabinoids Screen Serum Alcohol Influenza A (Rapid) Influenza B (Rapid) Studies: CXR: 03/08/18 bilateral opacities R>L- pna +/- pulmonary edema TTE 03/07/18: LV chamber size is normal. Mild concentric LVH. Normal EF 70%. RV moderate dilation with reduced systolic function. MV calcifications and thickening Nutrition: TF Jevity 1.2 to start 03/08 Impression: # Acute encephalopathy # Acute respiratory failure due to hypoxemia # Morbid obesity # Suspected sepsis # MSSA + 1 set of BCx # Skin and soft tissue infection # pancytopenia resolved # SHARON # Bilateral pulmonary opacities r/o multifocal PNA vs edema Plan: # Acute encephalopathy suspect sepsis induced +/- metabolic +/- med related -attempt to keep sedation and analgesia off if tolerates -target RASS 0 - -1 and CPOT </=2 - Trial of prn pushes of fentanyl before going to drips - pending EEG results - if patient does not wake up by 24 hours will have neuro rec # Acute respiratory failure due to hypoxemia -improved respiratory status on current vent setting # Adrenal insufficiency random cortisol 11 # Hypothyroidism TSH noted to be ~8. Unknown prior hx/o thyroid dz -continue with hydrocortisone 50 mg IV q6h (03/07) and LTX 100mcg # Septic shock # Skin and soft tissue infection # MSSA + 1 set of BCx Suspected contaminent MV abn on Echo likely chroinic vs IEC - repeat BCx today x 2 - continue with zosyn D#2 - follow ESR and CRP while on abx. If remains elevated r/o OM - MAP >65 or SBP >100 - Pressor support with dopamine - added vasopressin today 03/08 # Bilateral pulmonary opacities r/o multifocal PNA vs edema PNA +/- Pulmonary edema -abx -Trial of lasix once coming down on pressors # Morbid obesity # constipation -on bowel regimen - GI ppx - TF to start today # pancytopenia resolved. Improved WBC and platelet count. Suspect due to infection # SHARON likely prerenal -monitor electrolytes DVT ppx: SQH GI ppx: H2B Full code Critical care issues: MV, unstable, septic shock, on pressors Critical Care Time: 44 minutes
[2018-03-08] MEDS ORDERED: Vasopressin* 100 UNITS in D5W 250 ML BAG* 245 ML IVPB SCH (13:00)
[2018-03-08] MEDS: Polyethylene Glycol 3350* 17 GM PACKET PO SCH (13:19)
[2018-03-08 13:41] LABS: Albumin 2.7 g/dL (3.2-5.2); Albumin/Globulin Ratio 0.8 (1-3); BUN/Creatinine Ratio 28.4 (8-20); EGFR African American 62.8 (>60); EGFR Non-African American 51.9 (>60); Globulin 3.5 g/dL (2-4); Total Bilirubin 0.5 mg/dL (0.2-1.0); Total Protein 6.2 g/dL (6.4-8.9)
[2018-03-08 13:48] LABS: Potassium 5.1 mmol/L (3.5-5.0)
[2018-03-08] MEDS: Heparin VIAL(*) 5000 UNITS/ML VIAL (FIVE THOUSAND) SUBCUT SCH ×2 (14:33→21:07)
--- NOTE | 2018-03-08 15:01 | EEG ---
ELECTROENCEPHALOGRAPHY: DATE OF STUDY: 03/08/18- ROOM #[id number] DATE OF DICTATION: 03/08/18 PATIENT OF: Dr. Paulino Aguero. CLINICAL PROBLEM: This is a 42-year-old man being evaluated for the unresponsive episode with some right eye deviation, as well as some right shoulder twitching. The patient is sedated with Versed and fentanyl and has just cooled down to 80 degrees. MEDICATIONS: Include: 1. Versed. 2. Fentanyl. 3. Vancomycin. 4. Ativan. REPORT: With the patient intubated, background cerebral activity consisted of admixture of delta and theta activity. EKG artifact is noted throughout this recording, at times there is muscle artifact present. No epileptiform potentials, focal abnormalities or major asymmetries of background were noted. CLINICAL IMPRESSION: This sedated EEG is abnormal because of diffuse slowing of background consistent with an encephalopathy but nonspecific as to etiology. Medications the patient is consuming may contribute to this slowing. [id number]/CPS #: [id number] MTDD
[2018-03-08] MEDS: Vasopressin* 100 UNITS in D5W 250 ML BAG* 245 ML IVPB SCH (15:05)
[2018-03-08] MEDS ORDERED: Chlorhexidine MOUTHWASH 0.12%* 15 ML UDC SWISH SPIT SCH (17:00)
[2018-03-08] MEDS: CHLORHEXADINE (PERIDEX) VENT ORAL CARE TOPICAL SCH ×2 (17:45→21:09)
[2018-03-08] MEDS: Famotidine IV* 10 MG/ML 2 ML (20 mg) IV SCH (20:15)
[2018-03-08] MEDS: Docusate LIQ* 100 MG/10 ML UDC PO SCH (20:39)
[2018-03-08] MEDS: Senna TAB PO SCH (20:39)
[2018-03-08] MEDS ORDERED: Docusate CAP* 100 MG PO SCH (21:00)
[2018-03-08] MEDS ORDERED: Famotidine IV * 20 MG in NS 0.9% 100 ML* 100 ML IVPB SCH (21:00)
[2018-03-09] MEDS: Hydrocortisone INJ* 100 MG VIAL IV SCH ×4 (01:17→22:07)
[2018-03-09] MEDS: CHLORHEXADINE (PERIDEX) VENT ORAL CARE TOPICAL SCH ×6 (01:17→22:01)
[2018-03-09] MEDS: Heparin VIAL(*) 5000 UNITS/ML VIAL (FIVE THOUSAND) SUBCUT SCH (05:02)
[2018-03-09 05:37] LABS: ABS Basophils 0.1 10^3/ul (0-0.2); ABS Eosinophils 0 10^3/ul (0-0.6); ABS Monocytes 0.4 10^3/ul (0-0.8); ABS Neutrophils 9.1 10^3/ul (1.5-7.7); ABS Nucleated RBC 0 10^3/ul; Eosinophil % 0 %; Hematocrit 37 % (42-52); Hemoglobin 11.9 g/dl (14.0-18.0); Lymphocyte % 9.7 %; Mean Corpuscular HGB Conc 33 g/dl (31-36); Mean Corpuscular Hemoglobin 27 pg (27-31); Mean Corpuscular Volume 84 fL (80-94); Mean Platelet Volume 9.5 fL (7.4-10.4); Nucleated Red Blood Cells % 0.3; Platelet Count 48 10^3/ul (150-450); Red Blood Count 4.38 10^6/ul (4.00-5.40); Red Cell Distribution Width 18 % (10.5-15); White Blood Count 10.7 10^3/ul (3.5-10.8)
[2018-03-09 05:49] LABS: BUN/Creatinine Ratio 25.5 (8-20); Calcium 7.8 mg/dL (8.6-10.3); EGFR Non-African American 47.1 (>60)
[2018-03-09 05:51] LABS: Potassium 5.2 mmol/L (3.5-5.0)
[2018-03-09] MEDS: DOPamine 800 MG/250 ML IVPREM* 800 MG/250 ML ML CENTR SCH ×3 (06:02→18:26)
[2018-03-09] MEDS: ZOSYN 3.375 GM Q8H per EXTENDED INFUSION IVPB SCH ×2 (09:35)
[2018-03-09] MEDS ORDERED: Furosemide IV* 10 MG/ML VIAL (40 MG) IV ONE (10:15)
[2018-03-09] MEDS: Levothyroxine INJ* 100 MCG/5 ML VIAL IV SCH (10:30)
[2018-03-09] MEDS: Senna TAB PO SCH ×2 (10:30→22:08)
[2018-03-09] MEDS: Docusate LIQ* 100 MG/10 ML UDC PO SCH ×3 (10:30→22:00)
[2018-03-09] MEDS: Famotidine IV* 10 MG/ML 2 ML (20 mg) IV SCH ×2 (10:31→22:07)
[2018-03-09] MEDS: Nystatin TOP POWDER* 15 GM BTL TOPICAL SCH ×3 (10:31→22:07)
[2018-03-09] MEDS: Polyethylene Glycol 3350* 17 GM PACKET PO SCH ×2 (10:31→22:05)
--- NOTE | 2018-03-09 11:29 | PN ---
Date of Service: 03/09/18 Critical Care Services: 42 y/o male with past medical history of developmental delay, DM, morbidly obese , LE lyphmedema with cellulitis on PCN suppression admitted through the ED for AMS, hypothermia, bradycardia and intubated for airway protection. 03/07/18: DOA, intubation/mechanical vent 03/08: Epi switched to dopamine. Started on Vasopressin. Propofol turned off 03/09: TF held overnight due to high residual. No BM since hospitalization. Remains on dopamine and vasopressin. Not on sedation/analgesia for >24 hours. Vital Signs: Temp Pulse Resp BP SpO2 FiO2 99.3 F 86 21 113/65 96 60 03/09/18 08:31 03/09/18 08:31 03/09/18 08:30 03/09/18 08:31 03/09/18 08:31 03/09 08:30 Physical Exam: General: No acute distress, unresponsive, intubated, withdraws and localizes to pain. Chronically ill, malodorous, severely morbidly obese HEENT: Atraumatic, PERRLA, mucous membranes moist Lungs: air entry bilaterally, no wheezes Cardiovascular: Regular rate, Normal S1, Normal S2 Abdomen: obese, no tenderness, hard to auscultate bowel sounds but suspect they may be hypoactive Extremities: No clubbing. + gross edema Skin: chronic skin changes with lymphedema, erythema, flaky, skin breakdown superficially, malodorous Neurological: Other - unresponsive, + gag, withdraws to pain Fluid Balance (Past 24 Hours): I= O= Net Intake & Output 03/07/18 03/08/18 03/09/18 03/10/18 06:59 06:59 06:59 06:59 Intake Total 1914 3126.7 Output Total 1002 2495 615 Balance 912 631.7 -615 Weight 432 lb 5.086 oz 460 lb Intake: IV Fluids 19 592.3 ABX - ZOSYN 90.3 NS (0.9%) 19 502 IVPB 124 442 ABX - ZOSYN 124 344 NS (0.9%) 98 Medicated IV 1771 1528.4 CC - Dopamine 109 1338 CC - Epinephrine 1562 CC - Propofol/Diprivan 100 86.7 CC - Vasopressin/ 84.7 Pitressin GEN - Magnesium 19 Tube Feeding 294 Tube Feeding Flush Amount 150 NG Tube Irrigate Amount 120 Output: NG Tube Drainage Amount 50 Navarro 1002 1645 615 Tube Feeding Residual 600 Amount Wasted Suctioning 200 ADLs: Meal Record Start: 03/07/18 12: 57 Freq: 09,13,18 Status: Active Protocol: Created 03/07/18 12:57 System (Rec: 03/07/18 12:57 System ICU-C12) Document 03/07/18 13:00 [id number] (Rec: 03/07/18 13:54 [id number] ICU-C25) Document 03/07/18 17:07 [id number] (Rec: 03/07/18 17:07 [id number] ICU-C25) Document 03/08/18 08:59 [id number] (Rec: 03/08/18 08:59 [id number] ICU-C06) Document 03/08/18 13:00 [id number] (Rec: 03/08/18 13:11 [id number] ICU-C06) Document 03/08/18 17:51 [id number] (Rec: 03/08/18 17:52 [id number] ICU-C06) Intake and Output Start: 03/07/18 11: 04 Freq: Status: Active Protocol: Created 03/07/18 11:05 System (Rec: 03/07/18 11:05 System EDRM-C16) Document 03/07/18 12:25 [id number] (Rec: 03/07/18 12:25 [id number] EDRM-C16) Intake and Output Start: 03/07/18 12: 57 Freq: Q1HR Status: Active Protocol: Created 03/07/18 12:57 System (Rec: 03/07/18 12:57 System ICU-C12) Document 03/07/18 16:27 [id number] (Rec: 03/07/18 16:27 [id number] ICU-C25) Document 03/07/18 17:00 [id number] (Rec: 03/07/18 17:01 [id number] ICU-C25) Document 03/07/18 18:00 [id number] (Rec: 03/07/18 18:39 [id number] ICU-C25) Document 03/07/18 19:53 [id number] (Rec: 03/07/18 19:54 [id number] ICU-C06) Document 03/07/18 22:00 [id number] (Rec: 03/07/18 22:15 [id number] ICU-C06) Document 03/07/18 23:00 [id number] (Rec: 03/07/18 23:20 [id number] ICU-M19) Document 03/08/18 00:00 [id number] (Rec: 03/08/18 01:10 GGA9025 ICU-C06) Document 03/08/18 01:00 [id number] (Rec: 03/08/18 01:34 [id number] ICU-M19) Document 03/08/18 02:00 [id number] (Rec: 03/08/18 02:55 [id number] ICU-C06) Document 03/08/18 04:00 ALZ6149 (Rec: 03/08/18 04:48 [id number] ICU-C06) Document 03/08/18 06:00 [id number] (Rec: 03/08/18 06:11 [id number] ICU-M19) Document 03/08/18 07:00 ZFT2506 (Rec: 03/08/18 09:01 EKG0965 ICU-C06) Document 03/08/18 08:00 [id number] (Rec: 03/08/18 09:02 VPW9110 ICU-C06) Document 03/08/18 09:00 CNC5219 (Rec: 03/08/18 09:02 GZG1072 ICU-C06) Document 03/08/18 10:00 ASM6057 (Rec: 03/08/18 10:53 RTT9160 ICU-C06) Document 03/08/18 10:53 [id number] (Rec: 03/08/18 10:53 [id number] ICU-C06) Document 03/08/18 12:00 FPT6128 (Rec: 03/08/18 12:37 [id number] ICU-C06) Document 03/08/18 13:00 [id number] (Rec: 03/08/18 13:11 [id number] ICU-C06) Document 03/08/18 14:00 [id number] (Rec: 03/08/18 14:57 [id number] ICU-C06) Document 03/08/18 14:57 [id number] (Rec: 03/08/18 14:57 [id number] ICU-C06) Document 03/08/18 16:00 [id number] (Rec: 03/08/18 16:08 [id number] ICU-C06) Document 03/08/18 17:00 [id number] (Rec: 03/08/18 17:15 [id number] ICU-C06) Document 03/08/18 17:45 [id number] (Rec: 03/08/18 17:45 [id number] ICU-M19) Document 03/08/18 17:45 [id number] (Rec: 03/08/18 17:46 [id number] ICU-M19) Document 03/08/18 19:00 IWQ0123 (Rec: 03/08/18 19:30 [id number] ICU-C06) Document 03/08/18 20:56 UYV1682 (Rec: 03/08/18 20:57 [id number] ICU-M19) Document 03/08/18 22:00 [id number] (Rec: 03/08/18 22:07 [id number] ICU-C06) Document 03/08/18 23:00 [id number] (Rec: 03/08/18 23:57 [id number] ICU-M19) Document 03/08/18 23:57 [id number] (Rec: 03/08/18 23:57 [id number] ICU-M19) Document 03/09/18 01:00 FIA0713 (Rec: 03/09/18 01:12 [id number] ICU-C06) Document 03/09/18 02:00 [id number] (Rec: 03/09/18 02:06 [id number] ICU-C06) Document 03/09/18 03:00 [id number] (Rec: 03/09/18 03:04 [id number] ICU-C06) Document 03/09/18 04:00 [id number] (Rec: 03/09/18 04:27 [id number] ICU-C06) Document 03/09/18 05:00 OSM2513 (Rec: 03/09/18 05:03 [id number] ICU-M19) Document 03/09/18 06:00 PVH5124 (Rec: 03/09/18 06:06 [id number] ICU-M19) Document 03/09/18 06:29 [id number] (Rec: 03/09/18 06:29 [id number] ICU-C06) Document 03/09/18 08:29 [id number] (Rec: 03/09/18 08:29 [id number] ICU-M19) Document 03/09/18 09:00 [id number] (Rec: 03/09/18 11:05 [id number] ICU-9) Document 03/09/18 10:00 [id number] (Rec: 03/09/18 11:05 [id number] ICU-9) Document 03/09/18 11:00 [id number] (Rec: 03/09/18 11:05 [id number] ICU-9) Labs: Laboratory Results - last 24 hr 03/08/18 03/09/18 03/09/18 12:43 05:15 05:15 WBC 10.7 RBC 4.38 Hgb 11.9 L Hct 37 L MCV 84 MCH 27 MCHC 33 RDW 18 H Plt Count 48 L MPV 9.5 Neut % (Auto) 85.3 Lymph % (Auto) 9.7 Pickett % (Auto) 4.1 Eos % (Auto) 0 Baso % (Auto) 0.9 Absolute Neuts (auto) 9.1 H Absolute Lymphs (auto) 1.0 Absolute Monos (auto) 0.4 Absolute Eos (auto) 0 Absolute Basos (auto) 0.1 Absolute Nucleated RBC 0 Nucleated RBC % 0.3 Sodium 144 142 Potassium 5.1 H 5.2 H Chloride 112 H 110 Carbon Dioxide 27 27 Anion Gap 5 5 BUN 42 H 41 H Creatinine 1.48 H 1.61 H Est GFR ( Amer) 62.8 57.0 Est GFR (Non-Af Amer) 51.9 47.1 BUN/Creatinine Ratio 28.4 H 25.5 H Glucose 52 L 143 H Calcium 8.0 L 7.8 L Total Bilirubin 0.50 AST 31 ALT 24 Alkaline Phosphatase 82 Total Protein 6.2 L Albumin 2.7 L Globulin 3.5 Albumin/Globulin Ratio 0.8 L Studies: AXR : pna in the RL. No definitely pathologically dilated loops of bowel identified CXR: 03/08/18 bilateral opacities R>L- pna +/- pulmonary edema TTE 03/07/18: LV chamber size is normal. Mild concentric LVH. Normal EF 70%. RV moderate dilation with reduced systolic function. MV calcifications and thickening EEG 03/08 shows diffuse slowing consistent with with encephalopathy but nonspecific Nutrition: TF Jevity 1.2 to start 03/08 Impression: 42 yo morbidly obese male with hx/o DM, chronic lyphmedema of the LE with recurrent cellulits on PCN suppression, recent discharge 02/19 for tx of constipation and hypothermia admitted to the ICU with AMS, hypothermia 81 deg, bradycardia, shock requiring intubation/mechanical ventilation for airway protection # Acute encephalopathy # Alternating nystagmus # Acute respiratory failure due to hypoxemia # Hypothermia resolved # Shock on pressors # bradycardia resolved # Morbid obesity # Suspected sepsis # MSSA + 1 set of BCx # Adrenal insufficiency # Hypothyroidism # constipation # Skin and soft tissue infection # Thrombocytopenia platelets 48 # SHARON # Bilateral pulmonary opacities r/o multifocal PNA vs edema Plan: # Acute encephalopathy # Alternating nystagmus unknown chronicity suspect sepsis induced +/- metabolic +/- med related vs acute CVA vs meningitis off propofol and other sedating meds for > 24h since 03/08 - attempt to keep sedation and analgesia off if tolerates - target RASS 0 - -1 and CPOT </=2 - Trial of prn pushes of fentanyl before going to continuous drips - EEG shows diffuse slowing consistent with with encephalopathy but nonspecific - neuro/Dr. Valencia input appreciated. Anticipating MRI head to r/o Brain stem lesion on sunday and LP under anesthesia IR on sunday - will start on empiric meningitis tx coverage with ampicillin, ceftriaxone, and vancomycin # Acute respiratory failure due to hypoxemia # Bilateral pulmonary opacities r/o multifocal PNA with pulmonary edema -improved respiratory status on current vent setting - tolerate PS 10-18 for 10-15 minutes today 03/09 - c/w zosyn D#3 - lasix 40 mg x 1 trial (03/09)while on decreasing pressors # Adrenal insufficiency random cortisol 11 # Hypothyroidism TSH noted to be ~8. Unknown prior hx/o thyroid dz # Hypothermia resolved likely due to sepsis vs adreanal insufficiency vs untreated hypothyroidism was hypothermic on previous admission in Feb 2018 # bradycardia resolved -continue with hydrocortisone 50 mg IV q6h (03/07) and LTX (started on 03/07) 100mcg # Septic shock # Skin and soft tissue infection # suspected meningitis # PNA multifocal # sepsis due to Staph haemolyticus, corynebacterium- suspect contaminent MV abn on Echo likely chroinic vs IEC - MAP >65 or SBP >100 - Pressor support with dopamine - added vasopressin 03/08 - repeat BCx 03/08 to follow up pending final - RCx today 03/09 - will discontinue zosyn and tx with vanc, CTX, and ampicillin for now 03/09 # Morbid obesity # constipation -will intensify bowel regimen. Previously same complain of constipation on last hospitalization with normal CT findings. AXR from today was difficult to evaluate but no gross concerns - GI ppx - TF # Thrombocytopenia platelets 48 -repeat platelets are low at 41. - check for HIT - stop heparin # SHARON likely prerenal -monitor electrolytes - trial of lasix - repeat BMP to follow on electrolytes DVT ppx: SQH stopped 03/09 due to concerns of HIT. SCD ordered GI ppx: H2B Full code Critical care issues: MV, unstable, septic shock, on pressors Critical Care Time: 44 minutes
[2018-03-09 13:31] LABS: ABS Basophils 0.1 10^3/ul (0-0.2); ABS Eosinophils 0 10^3/ul (0-0.6); ABS Lymphocytes 1.1 10^3/ul (1.0-4.8); ABS Monocytes 0.6 10^3/ul (0-0.8); ABS Neutrophils 8.7 10^3/ul (1.5-7.7); ABS Nucleated RBC 0 10^3/ul; Eosinophil % 0 %; Hematocrit 38 % (42-52); Hemoglobin 12.4 g/dl (14.0-18.0); Lymphocyte % 10.8 %; Mean Corpuscular HGB Conc 33 g/dl (31-36); Mean Corpuscular Hemoglobin 27 pg (27-31); Mean Corpuscular Volume 84 fL (80-94); Mean Platelet Volume 9.7 fL (7.4-10.4); Nucleated Red Blood Cells % 0.3; Platelet Count 41 10^3/ul (150-450); Red Blood Count 4.54 10^6/ul (4.00-5.40); Red Cell Distribution Width 19 % (10.5-15); White Blood Count 10.4 10^3/ul (3.5-10.8)
[2018-03-09 13:36] LABS: INR 1.29 (0.77-1.02)
[2018-03-09 13:49] LABS: Albumin 2.7 g/dL (3.2-5.2); Albumin/Globulin Ratio 0.7 (1-3); BUN/Creatinine Ratio 24.6 (8-20); Calcium 8.2 mg/dL (8.6-10.3); EGFR African American 51.7 (>60); EGFR Non-African American 42.8 (>60); Potassium 4.8 mmol/L (3.5-5.0); Total Bilirubin 0.6 mg/dL (0.2-1.0); Total Protein 6.7 g/dL (6.4-8.9)
[2018-03-09] MEDS ORDERED: Vancomycin per Pharmacy* NOTE FOLLOW UP PRN (14:14)
[2018-03-09] MEDS: cefTRIAXone(*) 2 GM in NS 0.9% 100 ML* 100 ML IVPB SCH (14:22)
[2018-03-09] MEDS: Ampicillin ADVAN(*) 2 GM in NS 0.9% 100 ML* 100 ML IVPB SCH ×4 (14:22→22:05)
[2018-03-09] MEDS ORDERED: NS 0.9% IVPB SCH ×2 (15:00→22:30)
[2018-03-09] MEDS ORDERED: VANCOMYCIN IVPB SCH ×2 (15:00→22:30)
[2018-03-09] MEDS ORDERED: Vancomycin(*) 2,000 MG in NS 0.9% 500 ML* 500 ML IVPB ONE ×2 (15:00→18:30)
--- NOTE | 2018-03-09 15:39 | CONS ---
NEUROLOGY CONSULTATION: DATE OF CONSULT: 03/09/18 LOCATION: He is in the intensive care unit, bed 8. REFERRING PROVIDER: Dr. Aguero. CHIEF COMPLAINT: Coma. HISTORY OF PRESENT ILLNESS: Jaison Lacy is a 42-year-old man, who was brought into the emergency [place]aca from his home with unresponsiveness. According to admission records, he lives alone and his family had not heard from him in several days and so they called the police to check on him. When police a rrived, he was reportedly unresponsive except the painful stimuli. He was brought into the emergency room and required intubation. He was just here in the hospital a little over 2 weeks ago in the [facility] room with recurrent cellulitis of his legs and constipation and signed out against medical adv ice. He was hypothermic when he came in and after he was warmed up apparently when he signed out. Georgina mercado presented to the emergency room on 03/07/18 and he was initially sedated, but all sedation has been stopped as of yesterday morning and he is not responding. According to his nurse, he responds to ga gging and has pupillary responses and she has also observed some nystagmus. I was asked to see him i n consultation. PAST MEDICAL HISTORY: Notable for morbid obesity, recurrent lower extremity cellulitis, he apparentl y also has a history of diabetes. It is my understanding that the only medications he was taking at home was penicillin for suppressive therapy for his chronic leg ulcers. There is no family present a nd the patient is not able to provide any additional history. CURRENT MEDICATIONS: Consist of: 1. Colace 100 mg p.o. b.i.d. 2. Dopamine infusion. 3. Epinephrine infusion. 4. Etomidate 40 mg given once. 5. Famotidine 20 mg IV b.i.d. 6. Furosemide 40 mg IV given once. 7. Subcutaneous heparin 5000 units every 8 hours. 8. Levothyroxine 200 mcg IV once. 9. Solu-Cortef 50 mg IV once. 10. Nystatin. 11. Zosyn. SOCIAL HISTORY: According to admission records a couple weeks ago when he signed out, he is a nonsmo ker. REVIEW OF SYSTEMS: Other systems review taken from the medical record include a diagnosis of hypothy roidism and of developmental delay. PHYSICAL EXAM: He is a morbidly obese gentleman, who is intubated in the intensive care unit bed. Randall ost recent temperature 99 degrees by temporal scan, blood pressure 129/72, heart rate in the 80s and regular. Respiratory rate is about 12 and oxygen saturation is 95%. He has severe lymphedema in his legs and multiple areas of skin breakdown. Heart tones are very dist ant, but I do not hear any murmurs. Neck is supple. Neurological Exam: Pupils are equal when stimulated up to about 3.5 to 4 mm and constrict to light t o about 2 mm. He has alternating periodic nystagmus horizontally going from right gaze and after can roximately a minute subsides and then to left gaze. Sometimes, it will go to right gaze twice before going to left gaze. The whole cycle lasts about 2 to 3 minutes. He does not respond to visual thre at. I can see his left optic disc and it looks normal. He has weak corneal reflexes that are presen t. He has no facial movement otherwise. This includes no grimacing to deep nail bed pressure. His muscle tone in his leg seems increased. Muscle tone in his arms seems diminished. There are no movem ents of arms or legs including to deep nail bed pressure. There are no plantar responses. There is no response to nasal tickle. DIAGNOSTIC STUDIES/LAB DATA: Includes a CT scan of the brain which I reviewed the images of and it i s interpreted as normal. An EEG that was done yesterday was interpreted by Dr. Seth Robin as abnormal because of diffuse sl owing consistent with encephalopathy, but nonspecific as to etiology. Other laboratory data notable for a CBC with initial white blood cell count when he came in of 2.1, u p to 10.7 today. His platelet count has dropped from 73,000 when he came in to 48,000 this morning. When he was in the hospital on 02/15/18, it was 134,000. On 02/06/18, he had a normal platelet coun t of 235,000. He has 34% bands on yesterday's CBC. Sedimentation rate at presentation was 57. INR at presentation was 1.09, PTT 46.5. Blood gas from 03/08/18, pH 7.3, pCO2 47, pO2 102. Chemistries notable for creatinine rise from 0.89 when he presented to 1.61 this morning. BUN is stable at 41. Magnesium was low yesterday at 1.5 and albumin low at 2.7. Glucose 143, hemoglobin A1c yesterday 5.7 %. Lactic acid is normal. Liver enzymes are normal. CRP elevated the day of admission at 50, TSH el evated at 8.21 and total T3 low at 68. Toxicology screen on admission was negative. IMPRESSION AND PLAN: Impression is that of coma with multiple metabolic abnormalities and signs of b rainstem dysfunction. Periodic alternating nystagmus is localized to the cerebellum or at least brai nstem. It could be congenital in his case with a history of developmental delay, but if it is acquir ed it would indicate that he has a new brainstem syndrome. A brainstem or cerebellar stroke would ne ed to be considered particularly with his coma presentation. Meningitis was discussed with Dr. Shira fermin and I think it is reasonable to cover him for it given his other signs of possible sepsis. His pl atelet count is too low for lumbar puncture and it would need to be done at least with fluoroscopy gi anabel his size. An MRI will also be technically difficult for the same reason. Dr. Aguero is current ly evaluating his change in platelet count and creatinine. I do not think he is having seizures with the alternating nystagmus and his EEG which was unremarkable yesterday. Recommend that we get a brain MRI scan without contrast given his renal function. I would recommend g etting a lumbar puncture when it is possible, but empirically covering him for bacterial meningitis i n the interim. I will see about getting the MRI scan today. I will follow him along with you. [id number]/[facility] #: [id number]
[2018-03-09] MEDS: COLLAGENASE 250 MG/GM TOPICAL SCH ×2 (16:00→23:27)
[2018-03-09] MEDS: Vasopressin* 100 UNITS in D5W 250 ML BAG* 245 ML IVPB SCH (18:00)
--- NOTE | 2018-03-09 18:13 | OP ---
Operative Report - Blank - Operative Report Date of Operation: 03/09/18 Note: ARTERIAL LINE RIGHT RADIAL A time-out was completed verifying correct patient, procedure, site, positioning , and special equipment if applicable. Allens test was performed to ensure adequate perfusion. The patients right wrist was prepped and draped in sterile fashion. A bore needle was introduced to the artery. The catheter was threaded over the guide wire and the needle was removed with appropriate pulsatile blood return. The catheter was accidentally pulled out. Two further attempts were attempts were made. But the guidewire would not thread on both attempts. Due concerns with developing hematoma and thrombocytopenia. The procedure was ended. Perfusion to the extremity distal was checked and found to be adequate. Estimated Blood Loss: 5cc
[2018-03-10] MEDS: Ampicillin ADVAN(*) 2 GM in NS 0.9% 100 ML* 100 ML IVPB SCH ×4 (02:02→14:05)
[2018-03-10] MEDS: cefTRIAXone(*) 2 GM in NS 0.9% 100 ML* 100 ML IVPB SCH ×2 (02:02→14:05)
[2018-03-10] MEDS: Hydrocortisone INJ* 100 MG VIAL IV SCH ×4 (02:02→21:22)
[2018-03-10] MEDS: CHLORHEXADINE (PERIDEX) VENT ORAL CARE TOPICAL SCH ×6 (02:02→23:49)
[2018-03-10] MEDS: Vasopressin* 100 UNITS in D5W 250 ML BAG* 245 ML IVPB SCH ×2 (04:51→10:13)
[2018-03-10 06:47] LABS: ABS Basophils 0.1 10^3/ul (0-0.2); ABS Eosinophils 0 10^3/ul (0-0.6); ABS Lymphocytes 1.4 10^3/ul (1.0-4.8); ABS Monocytes 0.7 10^3/ul (0-0.8); ABS Neutrophils 8.2 10^3/ul (1.5-7.7); ABS Nucleated RBC 0.1 10^3/ul; Eosinophil % 0 %; Hematocrit 38 % (42-52); Hemoglobin 12.4 g/dl (14.0-18.0); Lymphocyte % 13.5 %; Mean Corpuscular HGB Conc 33 g/dl (31-36); Mean Corpuscular Hemoglobin 27 pg (27-31); Mean Corpuscular Volume 83 fL (80-94); Mean Platelet Volume 8.3 fL (7.4-10.4); Nucleated Red Blood Cells % 0.6; Platelet Count 28 10^3/ul (150-450); Red Blood Count 4.59 10^6/ul (4.00-5.40); Red Cell Distribution Width 18 % (10.5-15); White Blood Count 10.4 10^3/ul (3.5-10.8)
[2018-03-10 07:24] LABS: Vancomycin Trough 37.3 mcg/mL
[2018-03-10] MEDS: DOPamine 800 MG/250 ML IVPREM* 800 MG/250 ML ML CENTR SCH ×2 (08:22→22:22)
[2018-03-10] MEDS: Famotidine IV* 10 MG/ML 2 ML (20 mg) IV SCH ×2 (08:23→21:23)
[2018-03-10] MEDS: Levothyroxine INJ* 100 MCG/5 ML VIAL IV SCH (08:23)
[2018-03-10] MEDS: Senna TAB PO SCH ×2 (08:23→21:22)
[2018-03-10] MEDS: Docusate LIQ* 100 MG/10 ML UDC PO SCH ×3 (08:43→21:22)
[2018-03-10] MEDS: Polyethylene Glycol 3350* 17 GM PACKET PO SCH ×2 (08:43→21:23)
[2018-03-10] MEDS: Nystatin TOP POWDER* 15 GM BTL TOPICAL SCH ×3 (09:43→21:23)
[2018-03-10] MEDS: COLLAGENASE 250 MG/GM TOPICAL SCH (09:55)
--- NOTE | 2018-03-10 14:12 | PN ---
Date of Service: 03/10/18 - [facility] note Critical Care Services: Pt seen and examined at bedside. No acute events o/n. Pt is more alert today, opens eyes. Has thick secretions and requiring frequent suctioning. Still needing pressors, requiring less- decreased Vasopressin to 0.02, also on dopamine 5mcg Vital Signs: Temp Pulse Resp BP SpO2 FiO2 98.6 F 83 22 108/73 95 40 03/10/18 12:31 03/10/18 12:31 03/10/18 12:00 03/10/18 12:31 03/10/18 12:31 03/10 08:00 Physical Exam: Gen: Pt in NAD, opens eyes spontaneously HEENT: PERRLA, ETT+ Lungs: Good a/e, clear Cardiac: S1, S2+, irregular Abdomen: Obese, BS+ Extremities: Edematous Neuro: Opens eyes spontaneously Skin: Open wounds with yellow discharge, chronic skin changes and lymphadema of LE Fluid Balance (Past 24 Hours): J=0761 O= 3655 Net -581 Intake & Output 03/08/18 03/09/18 03/10/18 03/11/18 06:59 06:59 06:59 06:59 Intake Total 1914 3126.7 3074 100 Output Total 1002 2495 3655 355 Balance 912 631.7 -581 -255 Weight 432 lb 5.086 oz 459 lb 3.566 oz Intake: IV Fluids 19 592.3 1408 ABX - ZOSYN 90.3 Ampicillin 200 NS (0.9%) 19 502 675 Vancomycin 533 IVPB 124 442 178 ABX - ZOSYN 124 344 Ampicillin 100 NS (0.9%) 98 Vancomycin 78 Medicated IV 1771 1528.4 1253 CC - Dopamine 109 1338 633 CC - Epinephrine 1562 CC - Propofol/Diprivan 100 86.7 CC - Vasopressin/ 84.7 140 Pitressin Ceftriaxone 108 GEN - Magnesium 19 vanco 24hrs 372 Oral 0 Tube Feeding 294 175 Tube Feeding Flush Amount 150 60 100 NG Tube Irrigate Amount 120 Output: NG Tube Drainage Amount 50 Navarro 1002 1645 3655 355 Tube Feeding Residual 600 Amount Wasted Suctioning 200 Labs: Laboratory Results - last 24 hr 03/10/18 03/10/18 03/10/18 06:28 06:28 09:33 WBC 10.4 RBC 4.59 Hgb 12.4 L Hct 38 L MCV 83 MCH 27 MCHC 33 RDW 18 H Plt Count 28 L MPV 8.3 Neut % (Auto) 79.5 Lymph % (Auto) 13.5 Wilson % (Auto) 6.3 Eos % (Auto) 0 Baso % (Auto) 0.7 Absolute Neuts (auto) 8.2 H Absolute Lymphs (auto) 1.4 Absolute Monos (auto) 0.7 Absolute Eos (auto) 0 Absolute Basos (auto) 0.1 Absolute Nucleated RBC 0.1 Nucleated RBC % 0.6 Vancomycin Trough 37.3 H* 45.6 H* Studies: AXR : pna in the RL. No definitely pathologically dilated loops of bowel identified CXR: 03/08/18 bilateral opacities R>L- pna +/- pulmonary edema TTE 03/07/18: LV chamber size is normal. Mild concentric LVH. Normal EF 70%. RV moderate dilation with reduced systolic function. MV calcifications and thickening EEG 03/08 shows diffuse slowing consistent with with encephalopathy but nonspecific Nutrition: Tube feeds, no residuals noted Impression: 42 yo morbidly obese male with hx/o DM, chronic lyphmedema of the LE with recurrent cellulits on PCN suppression, recent discharge 02/19 for tx of constipation and hypothermia attributed to lack of heating at home, signed out AMA when he improved, admitted to the ICU with AMS, hypothermia 81 deg, bradycardia, shock requiring intubation/mechanical ventilation for airway protection Acute encephalopathy- Improving Alternating nystagmus, likely chronic Acute respiratory failure due to hypoxemia Hypothermia- resolved Septic Shock on pressors Morbid obesity Suspected sepsis sec to Cellulitis Adrenal insufficiency Hypothyroidism Constipation Lymphadema Thrombocytopenia- platelets 24 SHARON Plan: 1.Neuro: Mental status improving. Concern for meningitis/brain stem CVA yesterday. Will continue to monitor neuro status. neuro f/u appreciated. MRI couldnot be performed sec to pt not being able to fit in scanner. Meningitis held off given thrombocytopenia. No evidence of seizure activity. Monitor neuro status closely. On Sedation with Propofol and Fentanyl prn.Alternating nystagmus -unknown chronicity. Will d/c emperic coverage for meningitis. 2. Resp: Acute hypoxic resp failure , also intubated for airway protection, opacities b/l, > rt lung, received Lasix yesterday. Being covered for PNA. ? Asp PNA given AMS. Vewnt bundle ordered. c/w pulm toilet. Drug holiday 3. CVS: Bradycardia resolved. Hypotension sec to possible septic shock and adrenal insufficiency. On hydrocortisone and pressors- vasopressin at 0.002 and dopamine at 5mcg. Will titrate to MAP of 70. Lasix if positive fluid balance. ECHO-Mitral valve annulus and thickening noted, no evidence of vegetations. 4. ID: Sepsis sec to PNA and skin/soft tissue infection. was on Zosyn for 3 days , was started on Ceftriaxone, Vancomycin and Ampicillin yesterday for presumed meningitis. Bl cx 03/07 pos for Staph haemolyticus, corynebacterium- suspect contaminant. Rpt cx negative to date. Hypothermia resolved, low grade temp today. 5. Haem: Severe thrombocytopenia, unclear etiology- HIT versus ITP/TTP versus sec to ARF. Less likely to be HIT as platelets were low even prior to reent admission and was not exposed to Heparin for long time prior to that. His platelets continued to drop. Drug induced ITP also likely. he is currently off Vancomycin sec to elevated trough. He is off Ampicillin, Zosyn. Will have to c/ w Ceftriaxone. Will f/u HIT levels. Haem consulted. Labs for further w/u ordered 6. Endo: Adrenal insufficiency likely sec to sepsis, c/w hydrocortisone. Elevated TSH- likely sick euthyroid as it was normal recently. Was started on levothyroxine sec to bradycardia, recent hypothermia, constipation. 7. Renal: SHARON sec to hypotension, improving. Monitor electrolytes, I/O, UO. 8. Musculoskeletal: Multiple areas of skin breakdown and wounds. Chronic venous stasis, will need wound consult in am. DVT ppx: SQH stopped 03/09 due to concerns of HIT. SCD ordered GI ppx: H2B Full code Critical care issues: MV, thrombocytopenia, septic shock, on pressors Critical Care Time: 45 minutes
[2018-03-10 14:39] LABS: Albumin 2.7 g/dL (3.2-5.2); Albumin/Globulin Ratio 0.7 (1-3); BUN/Creatinine Ratio 28.1 (8-20); Calcium 8.2 mg/dL (8.6-10.3); EGFR African American 57.4 (>60); EGFR Non-African American 47.4 (>60); Potassium 4.2 mmol/L (3.5-5.0); Total Bilirubin 0.4 mg/dL (0.2-1.0); Total Protein 6.7 g/dL (6.4-8.9)
[2018-03-10 15:46] LABS: Fibrinogen 400.3 mg/dL (110.8-404.3); INR 1.04 (0.77-1.02)
[2018-03-10 15:52] LABS: LDH 201 U/L (140-271)
--- NOTE | 2018-03-10 20:44 | CONS ---
NEUROLOGY FOLLOWUP CONSULTATION: DATE OF FOLLOWUP: 03/10/18 LOCATION: He is in ICU, bed #8. CUTTER GAS: Dr. Castillo. CHIEF COMPLAINT: Unresponsiveness. INTERVAL HISTORY: Since yesterday, Jaison is now responding. We tried to get an MRI scan of his brain yesterday, but he was too obese to fit in the scanner. Currently, he does awake and nod and follow commands appropriately. MEDICATIONS: Medications are reviewed and he is on nystatin powder, vancomycin , ampicillin 2 g q.4 hours IV, ceftriaxone 2 g IV q.12 hours, famotidine 20 mg IV b.i.d., Solu-Cortef 50 mg IV q.6 hours, levothyroxine 100 mcg IV daily. PHYSICAL EXAM: On exam, he remains morbidly obese. He is intubated. Temperature 98.2, blood pressure 114/67, heart rate in the 90s, respiratory rate is 11, oxygen saturation is 95%. He opens his eyes to voice. He follows commands. His hands have mittens on them, but he is able to raise his arms to command. Eye movements continue to show periodic alternating nystagmus. IMPRESSION: Coma which is resolving. 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 I am concerned about a brainstem stroke. I also think meningitis is very unlikely. Laboratory data is notable for platelet count which is now down to 28,000. Hemoglobin is stable at 12.4. He does not have any chemistries done yet today. His creatinine yesterday had risen to 1.75. PLAN/RECOMMENDATIONS: At this point, I think we should just keep a watchful eye on him. I am not as concerned about a lumbar puncture and I think we could probably get rid of the antibiotics unless there is other indication. I talked with Dr. Aguero yesterday. She was concerned about possible pneumonia. His thyroid dysfunction is being addressed. His hypothermia is improved. We will continue to follow him along with you. [id number]/[facility] #: [id number] MOLLY
[2018-03-10] MEDS: Propofol* 100 ML IV SCH (23:11)
[2018-03-11] MEDS ORDERED: Acetaminophen TAB* 325 MG PRN (00:59)
[2018-03-11] MEDS: cefTRIAXone(*) 2 GM in NS 0.9% 100 ML* 100 ML IVPB SCH ×2 (03:00→15:09)
[2018-03-11] MEDS: CHLORHEXADINE (PERIDEX) VENT ORAL CARE TOPICAL SCH ×6 (03:00→21:32)
[2018-03-11] MEDS: Hydrocortisone INJ* 100 MG VIAL IV SCH ×4 (03:00→21:05)
[2018-03-11] MEDS ORDERED: Acetaminophen ADULT LIQ* 650 MG/20.3 ML UDC G TUBE PRN (03:17)
[2018-03-11] MEDS ORDERED: Acetaminophen ADULT LIQ* 650 MG/20.3 ML UDC NG TUBE PRN (03:18)
[2018-03-11] MEDS: Propofol* 100 ML IV SCH ×3 (03:39→18:05)
[2018-03-11] MEDS ORDERED: Vancomycin Random Level* NOTE FOLLOW UP ONE (06:00)
[2018-03-11 07:00] LABS: EGFR African American 69.8 (>60); EGFR Non-African American 57.7 (>60)
[2018-03-11 07:01] LABS: Vancomycin Random 14.9 mcg/mL
[2018-03-11] MEDS: Famotidine IV* 10 MG/ML 2 ML (20 mg) IV SCH ×2 (10:34→21:05)
[2018-03-11] MEDS: Docusate LIQ* 100 MG/10 ML UDC PO SCH ×3 (10:34→20:33)
[2018-03-11] MEDS: Levothyroxine INJ* 100 MCG/5 ML VIAL IV SCH (10:34)
[2018-03-11] MEDS: COLLAGENASE 250 MG/GM TOPICAL SCH (10:34)
[2018-03-11] MEDS: Nystatin TOP POWDER* 15 GM BTL TOPICAL SCH ×3 (10:35→21:32)
[2018-03-11] MEDS: Polyethylene Glycol 3350* 17 GM PACKET PO SCH ×2 (10:35→20:33)
[2018-03-11] MEDS: Senna TAB PO SCH ×2 (10:42→20:33)
[2018-03-11 12:38] LABS: Hematocrit 33 % (42-52); Hemoglobin 10.8 g/dl (14.0-18.0); Mean Corpuscular HGB Conc 33 g/dl (31-36); Mean Corpuscular Hemoglobin 28 pg (27-31); Mean Corpuscular Volume 83 fL (80-94); Platelet Count 41 10^3/ul (150-450); Red Blood Count 3.93 10^6/ul (4.00-5.40); Red Cell Distribution Width 18 % (10.5-15); White Blood Count 7.7 10^3/ul (3.5-10.8)
--- NOTE | 2018-03-11 13:16 | CONS ---
CONSULTATION REPORT: DATE OF CONSULT: 03/11/18 REASON FOR CONSULTATION: Thrombocytopenia. HISTORY OF PRESENT ILLNESS: A 42-year-old male in a second admission for cellulitis. He is currently intubated in the ICU. Source was chart history. He initially presented on 02/15/18 with cellulitis. He was admitted and noted to have marked lower extremity edema and with chronic venous stasis with acute infection. He was in the hospital for 4 days at that time and started on oral penicillin and was placed on Lovenox 49 sq daily. He was not having fevers during that admission, but was noted to be hypothermic. He left the hospital AMA on 02/19/18 and was discharged on oral penicillin. The patient then presented on 03/07/18 unconscious and brought to the intensive care unit with presumed sepsis. He has remained on the ventilator and is unresponsive but at this point is hemodynamically stable. He has a temperature of 99.9 and this time, when he presented on 03/07/18, he had a temperature of 80. Initially warmed with a warming blanket.. Platelet count was 263 in 2015, 235 on 02/06/18, then 131 on presentation on 12/24, down to 73 on 03/07/18 on presentation for this admission, 48 on 03/09/18 , then 28,000 on 03/10/18. Medication history includes penicillin oral 02/15/18, continued on discharge. I do not know for how long he took it. Zosyn started on 03/08/18, then ceftriaxone started on 03/09/18. Lovenox was given during his hospitalization on 02/05/18 and he received heparin once on 03/08/18. Famotidine as of . Other blood counts are stable with a hemoglobin right now of 12.2, MCV of 83, white count of 10.4 with a left shift. He had a B12 of 1450 and SPEP that is pending. Fibrinogen is 400, D-dimer elevated to 475. PT 46.5, INR 4.01, and he has a creatinine of 1.35. There is no bleeding history that I am aware of. According to the nurses, he has not been bruising or bleeding during the admission, no bleeding around the ET tube. PAST MEDICAL HISTORY: 1. Chronic lymphedema, lower extremities. 2. Developmental delay. 3. History of recurrent cellulitis. PAST SURGICAL HISTORY: Hernia repair and tonsillectomy. MEDICATIONS: Medications in ICU were reviewed. 1. Acetaminophen. 2. Ampicillin, that was discontinued. 3. Ceftriaxone, active. 4. Docusate. 5. Famotidine, started on 03/08/18. 6. Fentanyl 7. Lasix. 8. Solu-Cortef. 9. Levothyroxine IV. 10. Ativan. 11. Magnesium. 12. Nystatin. 13. Vancomycin. 14. He had been on propofol, that was stopped on 03/08/18. FAMILY HISTORY: Unknown. SOCIAL HISTORY: Does not smoke. Does not drink by chart review. REVIEW OF SYSTEMS: Unobtainable. PHYSICAL EXAM: Limited. He has a temperature of 99.0, BP 124/71, heart rate 76 , respirations 18, O2 sat he is on the ventilator. HEENT: ET tube in place. Clear secretions. No evidence of mucosal bleeding. No cervical or supraclavicular lymphadenopathy. Heart: Regular rate and rhythm. S1, S2. Lungs: Ventilator sounds, no clear crackles. Abdomen: Obese and otherwise nonspecific. Nodes: No axillary or neck nodes, could not feel groin nodes. Extremities: Marked chronic lymphedema. Not overtly infected on my exam today. Neurologic: He is unresponsive. Skin: No clear bruising. ASSESSMENT AND PLAN: A 42-year-old male who presents with progressive thrombocytopenia over the past month after recurrent infections and on beta lactam antibiotics,SQ Lovenox. Differential diagnoses includes consumptive thrombocytopenia from infection, drug reaction - most likely to penicillin, clumping, concurrent idiopathic thrombocytopenic purpura. 1. CBC today and we will review the manual blood film. 2. Recommend holding beta-lactam antibiotics and switching to an alternative. 3. Given that he is not bleeding, we will follow for the time being, no transfusion. 4. We will continue to follow. [id number]/[facility] #: [id number] [facility] HOSPITALRadha
--- NOTE | 2018-03-11 14:31 | PN ---
Subjective Date of Service: 03/11/18 Length of Stay: 4 Days Neurology is following for encephalopathy. Interval History: Mr. Jaison Lacy was found confused and his last known well time was 2-3 days prior to admission on 03/07/2018. There were reports that he had some jerking movements. He was intubated for airway protection and transported to the ICU. He was found to have sepsis. Neurology was consulted for evaluation of encephalopathy and irregular eye movement which was thought to be related to a congenital abnormality. Dr. Valencia was consulted to evaluate the patient on 03/09/2018. The patient cannot have an MRI due to body habitus (452lbs). Since his admission, the patient has shown some evidence of clinical and neurophysiological improvement. S: He is awake and reaching for the endotracheal tube. He responds appropriately. He nodded no for headaches or visual disturbance. He has an aid at bedside. Review of Systems: Patient is intubated and slightly irritable. Objective Active Medications: Acetaminophen (Tylenol Adult Liq*) 650 mg NG TUBE Q4H PRN PRN Reason: FEVER Last Admin: 03/11/18 03:48 Dose: 650 mg Bisacodyl (Dulcolax Supp*) 10 mg AK DAILY PRN PRN Reason: CONSTIPATION Chlorhexidine Gluconate (Peridex Mouth Wash 0.12%*) 15 ml TOPICAL Q4H [facility] Last Admin: 03/11/18 10:35 Dose: 15 ml Collagenase (Santyl 250 Mg/Gm Oint*) 1 applic TOPICAL DAILY [facility] Last Admin: 03/11/18 10:34 Dose: 1 applic Docusate Sodium (Colace Liq*) 100 mg PO TID [facility] Last Admin: 03/11/18 10:34 Dose: 100 mg Famotidine (Pepcid Iv*) 20 mg IV BID [facility] Last Admin: 03/11/18 10:34 Dose: 20 mg Hydrocortisone Sodium Succinate (Solu-Cortef*) 50 mg IV Q6H [facility] Last Admin: 03/11/18 10:33 Dose: 50 mg Dopamine HCl/Dextrose (Dopamine 800 Mg/250 Ml Ivprem*) 800 mg in 250 mls @ 18.115 mls/hr CENTR Q13H [facility]; Protocol Last Admin: 03/10/18 22:22 Dose: 18.115 mls/hr Propofol (Diprivan*) 100 mls @ 23.188 mls/hr IV .(Initial Rate) [facility]; Protocol Last Admin: 03/11/18 09:21 Dose: 18.7 mls/hr Ceftriaxone Sodium 2 gm/ (Sodium Chloride) 100 mls @ 200 mls/hr IVPB Q12H [facility] Last Admin: 03/11/18 03:00 Dose: 200 mls/hr Vasopressin 100 units/ (Dextrose) 250 mls @ 3 mls/hr IVPB Q24H [facility]; Protocol Last Admin: 03/10/18 10:13 Dose: Not Given Levothyroxine Sodium (Synthroid Inj*) 100 mcg IV 0900 [facility] Last Admin: 03/11/18 10:34 Dose: 100 mcg Nystatin (Nystatin Top Powder*) 1 applic TOPICAL TID [facility] Last Admin: 03/11/18 10:35 Dose: 1 applic Pharmacy Consult (Vancomycin Per Pharmacy*) 1 note FOLLOW UP . PRN PRN Reason: PER PROTOCOL Polyethylene Glycol/Electrolytes (Miralax*) 17 gm PO BID [facility] Last Admin: 03/11/18 10:35 Dose: Not Given Senna (Senokot Tab*) 2 tab PO BID [facility] Last Admin: 03/11/18 10:42 Dose: 2 tab Vital Signs 03/11/18 03/11/18 03/11/18 12:31 12:46 13:00 Temperature 98.4 F 98.4 F 98.2 F Pulse Rate 70 70 69 Respiratory Rate Blood Pressure 95/60 99/61 (mmHg) O2 Sat by Pulse 98 97 98 Oximetry 03/11/18 13:01 Temperature 98.4 F Pulse Rate 71 Respiratory Rate Blood Pressure 105/66 (mmHg) O2 Sat by Pulse 98 Oximetry Intake and Output Last 24 Hours 03/09/18 03/10/18 03/11/18 03/12/18 06:59 06:59 06:59 06:59 Intake Total 3126.7 3074 2538.2 Output Total 2495 8755 1652 473 Balance 631.7 -581 886.2 -473 Weight 459 lb 3.566 oz 452 lb 9.744 oz Intake: IV Fluids 592.3 1408 484.6 ABX - ZOSYN 90.3 Ampicillin 200 NS (0.9%) 502 675 484.6 Vancomycin 533 IVPB 442 178 410 ABX - ZOSYN 344 Ampicillin 100 310 NS (0.9%) 98 Vancomycin 78 100 Medicated IV 1528.4 1253 766.6 CC - Dopamine 1338 633 455 CC - Propofol/Diprivan 86.7 134 CC - Vasopressin/ 84.7 140 56.8 Pitressin Ceftriaxone 108 100 GEN - Magnesium 19 20.8 vanco 24hrs 372 Oral 0 Tube Feeding 294 175 577 Tube Feeding Flush Amount 150 60 100 NG Tube Irrigate Amount 120 200 Output: NG Tube Drainage Amount 50 Navarro 1645 3655 1652 473 Tube Feeding Residual 600 Amount Wasted Suctioning 200 Oxygen Devices in Use Now: Mechanical Ventilator Neurology Exam: General: Ill appearing obese man in mild distress, wanting the ETT out. HEENT: Normocephalic/atraumatic, sclera anicteric, mucous membranes moist Neck: Supple Chest: diminished lung sounds throughout. Cardiovascular: Regular rate and rhythm without murmurs, rubs, gallops Extremities: edematous and elephantiasis appearing distal lower extremity. Neurological Findings: Intubated, off sedation, awake, and appropriately responsive. PERRL, EOM-I, can track examiner. He blinks to eye threat. He was able to give thumbs up using both hands He does not move the legs. Need to clarify his baseline. Sensation is intact to light touch throughout. Reflex: absent throughout. Result Diagrams: 03/11/18 11:50 03/11/18 06:20 Microbiology and Other Data: Microbiology 03/07/18 11:00 Aerobic Blood Culture - Preliminary Blood Venous No Growth Day 4 Anaerobic Blood Culture - Final Staphylococcus Haemolyticus Blood MRSA/MSSA (PCR) - Final Mrsa Negative S.aureus Negative 03/07/18 11:00 Aerobic Blood Culture - Final Blood Venous Corynebacterium Species Anaerobic Blood Culture - Preliminary No Growth Day 4 Blood MRSA/MSSA (PCR) - Final Mrsa Negative S.aureus Negative 03/08/18 14:28 Aerobic Blood Culture - Preliminary Blood Venous No Growth Day 2 Anaerobic Blood Culture - Preliminary No Growth Day 2 03/08/18 14:20 Aerobic Blood Culture - Preliminary Blood Venous No Growth Day 2 Anaerobic Blood Culture - Preliminary No Growth Day 2 03/09/18 14:15 Gram Stain - Final Sputum 03/07/18 14:52 Nasal Screen MRSA (PCR) - Final Nasal Mrsa Not Detected 03/07/18 13:31 Influenza Types A,B Antigen - Final Nasopharyngeal Specimen received for Influenza A/B Molecular testing Assessment/Plan Mr. Jaison Lacy presented to alteration in sensorium and was admitted to the ICU for acute respiroatry failure. 1. Acute hypoxic and infectious encephalopathy- He is showing some improvement and is now following command. The etiology is most likely infectious or hypoxic related. I don't suspect meningitis or brainstem infarction. Recommendations: Continue supportive care Neuro checks every 2 hours Plan for extubation if cleared by the primary team Time spent: 25 minutes D/w the ICU team.
--- NOTE | 2018-03-11 14:31 | PN ---
Progress Note - Progress Note Date of Service: 03/11/17 Note: Progress Note -- Critical Care 24 hour events/significant events: -no events overnight -remains intubated -on dopamine, weaned off vaso this morning -on vent 35%, no distress; CPAP trialed this morning, tolerating well -mild secretions being suctioned, nothign significant -follows all commands by nurse when asked, able tlife head, denies pain Tele: NSR Vitals: Vital Signs Temp 98.2 F 03/11/18 13:16 Pulse 67 03/11/18 13:16 Resp 25 03/11/18 13:00 BP 98/67 03/11/18 13:16 Pulse Ox 97 03/11/18 13:16 Intake & Output 03/10/18 03/11/18 03/11/18 18:59 06:59 18:59 Intake Total 944 1594.2 257.2 Output Total 835 817 613 Balance 109 777.2 -355.8 Weight 205.3 kg Intake: IV Fluids 225 259.6 79 NS (0.9%) 225 259.6 79 IVPB 410 Ampicillin 310 Vancomycin 100 Medicated IV 209 557.6 178.2 CC - Dopamine 174 281 95.5 CC - Propofol/Diprivan 134 79.3 CC - Vasopressin/ 35 21.8 3.4 Pitressin Ceftriaxone 100 GEN - Magnesium 20.8 Oral 0 Tube Feeding 577 Tube Feeding Flush Amount 100 NG Tube Irrigate Amount 200 Output: Correia 835 817 613 O2/Vent: AC 35% Infusions: dopamine 5 Medications: Acetaminophen (Tylenol Adult Liq*) 650 mg NG TUBE Q4H PRN PRN Reason: FEVER Last Admin: 03/11/18 03:48 Dose: 650 mg Bisacodyl (Dulcolax Supp*) 10 mg IN DAILY PRN PRN Reason: CONSTIPATION Chlorhexidine Gluconate (Peridex Mouth Wash 0.12%*) 15 ml TOPICAL Q4H [facility] Last Admin: 03/11/18 10:35 Dose: 15 ml Collagenase (Santyl 250 Mg/Gm Oint*) 1 applic TOPICAL DAILY [facility] Last Admin: 03/11/18 10:34 Dose: 1 applic Docusate Sodium (Colace Liq*) 100 mg PO TID [facility] Last Admin: 03/11/18 10:34 Dose: 100 mg Famotidine (Pepcid Iv*) 20 mg IV BID [facility] Last Admin: 03/11/18 10:34 Dose: 20 mg Hydrocortisone Sodium Succinate (Solu-Cortef*) 50 mg IV Q6H [facility] Last Admin: 03/11/18 10:33 Dose: 50 mg Dopamine HCl/Dextrose (Dopamine 800 Mg/250 Ml Ivprem*) 800 mg in 250 mls @ 18.115 mls/hr CENTR Q13H [facility]; Protocol Last Admin: 03/10/18 22:22 Dose: 18.115 mls/hr Propofol (Diprivan*) 100 mls @ 23.188 mls/hr IV .(Initial Rate) [facility]; Protocol Last Admin: 03/11/18 09:21 Dose: 18.7 mls/hr Vasopressin 100 units/ (Dextrose) 250 mls @ 3 mls/hr IVPB Q24H [facility]; Protocol Last Admin: 03/10/18 10:13 Dose: Not Given Ceftriaxone Sodium 1 gm/ (Sodium Chloride) 50 mls @ 200 mls/hr IVPB Q24H [facility] Levothyroxine Sodium (Synthroid Inj*) 100 mcg IV 0900 [facility] Last Admin: 03/11/18 10:34 Dose: 100 mcg Nystatin (Nystatin Top Powder*) 1 applic TOPICAL TID [facility] Last Admin: 03/11/18 10:35 Dose: 1 applic Polyethylene Glycol/Electrolytes (Miralax*) 17 gm PO BID [facility] Last Admin: 03/11/18 10:35 Dose: Not Given Senna (Senokot Tab*) 2 tab PO BID [facility] Last Admin: 03/11/18 10:42 Dose: 2 tab Physical Exam: General: awake, alert, no distress, no diaphoresis Head: normocephalic, atraumatic HEENT: no pallor, no icterus, moist mucous membranes Neck: soft, supple, no jvd, no stridor CVS: normal rate, regular, no murmur Resp: bilateral air entry, no rhales, no wheeze, no rhonchi, no acc muscle use Abdomen: soft, nontender, nondistended, bowel sounds present Ext: pulses+, warm, no edema Skin: intact Neuro: awake, alert, orientedx3, moving all extremities, no gross focal deficit Labs: Imaging: Assessment: 42y M w/pmhx of developmental delay, obesity, DM, Chronic Lymphedema with recurrent cellulitus on chronic PCN suppression; recent admission 02/19, was treated for hypothermia and constipation, but signed AMA. Readmitted for Delirium, hypothermia 81F, bradycardia and shock, intubated for airway protection. Was leukopenic and thrombocytopenic -Acute hypercapneic Respiratory failure, intubated 03/07 -Suspected Severe sepsis with shock -Bradycardia -Bilateral LE cellulitus -Pulmonary Congestion vs pneumonia, bilateral -Hyperkalemia -SHARON -adrenal insuff suspected, r/o hypothyroidism Chronic LE lymphedema Obesity DM Plan: Neuro- on sedation but off and follows commands. No focal findings. -keep sedation to minimal, keep for comfort for now -last EEG diffuse slowing -CT brain no acute findings from prior CVS- BP stable; HR 60 NSR. remains on dopamine 5, if dropped he has hansa to 40- 50s. -Cont for now. on Stress hydrocortisone 50mg q6h, IV levothyroxine 100mcg/ daily. Endo consult for evaluation -IV abx for cellulitus coverage and Pna coverage. -CXR with bilateral infiltrates in lower plata, congestion? pneumonia? aspiration? BNP 103 on arrival. Will repeat Lasix 40mg IV x1 dose today Resp- on CPAP 35%; tolerating. minimal secretions -CXR 03/11 with bilateral lower field congestion / infiltrate -sputum culture with neurotrophils, gram+ -IV abx -plan to hold off extubation, re-eval tomorrow for clearance of cxr a little. -no steroids, cont bronchodilators PRN -VAP bundle, pulm toilet, asp prec ID- -euthermic. afebrile, tmax 100.8 in AM. wbc 7. BLood cx 03/07 1 set anaerobic staph hemolyticus, 2nd set aerobic corynebacterium+; suspected contaminants. Repeat Blood cx 03/08 both negative. SPutum culture 03/09 with staph aureus+, pending sensitivity. -suspicion for meningitis lower; mental status better; no LP performed. multifactorial etiology of hypothermia and hansa, more systemic infxn likely, given LE cellultus and pneumonia possibility. -CXR with bialtera lower field congestion vs pneumonia; sputum pending as above -LE B/L lymphedema with breakdown and cellulitic changes+; drainage+ -de-escalate CTX to 1gm IV daily (day#5), no further ampicillin; Vanco random 15 , repeat vanco trough tomorrow AM, re-eval Vanco dosing then. If MRSA neg, then no further vanco. GI- NGT feeds+, jevity 1.2 @ 40cc/hr. h2b. asp prec. Renal- SHARON noted, multifactorial from bradycardia/shock and low flow state, may be intravasc depleted. -K okay, no acidosis. making urine. s/p lasix 40mg IV 2/2 -maintain correia; keep K>4, Mg>2 Heme- hg 10, down from 12. no bleeding. may be false reading -severe thrombocytopenia; no bleeding noted. Unclear etiology. Heme consulted for possible WOOD? off AC Endo- suspicion for adrenal insuff and myxedema on initial evaluation. history of cold exposure may have caused symptoms also. Started on hydrocortisone 50mg q6h and levothyroxine 100mcg/daily IV. Endo consulted for evaluation of this. added hba1c. Musculsk- pressure ulcer prophylaxis. Bedrest. Wounds- LE lymphedema with cellulitis wounds; wound care local. IV abx. pressure prevention. Nutrition- ngt jevity 1.2. WIll go by ideal body weight. to discuss with nutrition about goal tube feeding. DVT prophylaxis: off AC 2/2 to thrombocytopenia; off SCDs due to LE wounds GI prophylaxis: h2b Central Line: yes Arterial Line: no Correia Cathetor: yes Disposition: Patient requires Critical Care/ICU for septic shock suspected, respiratory failure/intubated Patient clinical status: critical, guarded Code Status: full code Total Critical Care time is 45 minutes, excluding procedures/teaching Perez Najera MD [employer] (Electronically Signed)
[2018-03-11 14:34] LABS: ABS Basophils 0 10^3/ul (0-0.2); ABS Eosinophils 0 10^3/ul (0-0.6); ABS Lymphocytes 1.3 10^3/ul (1.0-4.8); ABS Monocytes 0.8 10^3/ul (0-0.8); ABS Neutrophils 5.5 10^3/ul (1.5-7.7); ABS Nucleated RBC 0.1 10^3/ul; Eosinophil % 0 %; Lymphocyte % 17.2 %; Nucleated Red Blood Cells % 0.8
[2018-03-11] MEDS ORDERED: Furosemide IV* 10 MG/ML VIAL (40 MG) IV ONE (14:47)
[2018-03-11] MEDS: DOPamine 800 MG/250 ML IVPREM* 800 MG/250 ML ML CENTR SCH (15:07)
--- NOTE | 2018-03-11 20:09 | EEG ---
ELECTROENCEPHALOGRAPHY: DATE OF STUDY: 03/11/18 - ROOM #ICU-08 DATE READ: 03/11/18 RECORDING: From 11:44 a.m. to 12:13 p.m. CLINICAL PROBLEM: Mr. Jaison Lacy is a 42-year-old obese man with acute encephalopathy. This EEG was obtained to evaluate for epileptiform discharges or electrographic seizures. CLINICAL STATE: Waking. MEDICATIONS: 1. Vancomycin. 2. Hydrocortisone. 3. Colace. 4. Collagenase. 5. Dopamine. 6. Pepcid. 7. Synthroid. 8. Nystatin. 9. MiraLAX. 10. Senokot. 11. Vasopressin. 12. Rocephin. 13. Tylenol. 14. Dulcolax. 15. Propofol. Please note that the propofol was off during this recording. REPORT: The background lacked organization with clearly defined anterior- posterior voltage and frequency gradient. There was a slightly discernible posterior dominant rhythm of 7-8 Hz, but throughout the recording, the background consisted of diffuse low amplitude polymorphic 3 to 10 Hz delta, theta, and alpha range frequencies. There was emergence of faster frequency with verbal and tactile stimulation. Hyperventilation and photic stimulation were not performed. Compared to this recording, there were more faster frequencies seen than the previous study completed on 03/07/18. There were no epileptiform discharges or electrographic seizures. There were diffuse EKG artifacts throughout the recording. CLINICAL IMPRESSION: This is an abnormal EEG due to the presence of diffuse, but reactive slowing with some discernible posterior dominant rhythm. These findings are suggestive of mild nonspecific diffuse encephalopathy, which can be seen in the setting of toxic metabolic disturbance, hypoxic ischemic brain injury, or as a result of previous sedation. There has been interval improvement when compared to the EEG completed on 03/07/18. [id number]/[facility] [place] #: [id number] [facility] HOSPITALRadha
[2018-03-11] MEDS: Vasopressin* 100 UNITS in D5W 250 ML BAG* 245 ML IVPB SCH (20:31)
[2018-03-12] MEDS: DOPamine 800 MG/250 ML IVPREM* 800 MG/250 ML ML CENTR SCH ×2 (00:06→12:56)
[2018-03-12] MEDS: CHLORHEXADINE (PERIDEX) VENT ORAL CARE TOPICAL SCH ×3 (02:00→09:56)
[2018-03-12] MEDS: Propofol* 100 ML IV SCH ×3 (02:00→09:56)
[2018-03-12] MEDS: Hydrocortisone INJ* 100 MG VIAL IV SCH ×3 (05:17→22:21)
[2018-03-12 05:33] LABS: Hematocrit 34 % (42-52); Hemoglobin 10.9 g/dl (14.0-18.0); Mean Corpuscular HGB Conc 32 g/dl (31-36); Mean Corpuscular Hemoglobin 27 pg (27-31); Mean Corpuscular Volume 84 fL (80-94); Mean Platelet Volume 8.8 fL (7.4-10.4); Platelet Count 56 10^3/ul (150-450); Red Cell Distribution Width 18 % (10.5-15); White Blood Count 7.9 10^3/ul (3.5-10.8)
[2018-03-12 05:50] LABS: Vancomycin Random 7.4 mcg/mL
[2018-03-12 05:51] LABS: BUN/Creatinine Ratio 33.1 (8-20); Calcium 8.2 mg/dL (8.6-10.3); EGFR African American 81.5 (>60); EGFR Non-African American 67.4 (>60); Magnesium 2.4 mg/dL (1.9-2.7)
[2018-03-12] MEDS: cefTRIAXone(*) 1 GM in NS 0.9% 50 ML* 50 ML IVPB SCH (08:58)
[2018-03-12] MEDS: Famotidine IV* 10 MG/ML 2 ML (20 mg) IV SCH (08:58)
[2018-03-12] MEDS: Levothyroxine INJ* 100 MCG/5 ML VIAL IV SCH (08:58)
[2018-03-12] MEDS: Senna TAB PO SCH ×2 (09:01→22:22)
[2018-03-12] MEDS: Docusate LIQ* 100 MG/10 ML UDC PO SCH (09:01)
[2018-03-12] MEDS: Polyethylene Glycol 3350* 17 GM PACKET PO SCH ×2 (09:01→22:22)
[2018-03-12 10:15] LABS: Testosterone < 10.00 ng/dL (240-950)
[2018-03-12 10:26] LABS: Thyroid Peroxidase Antibodies 0.91 IU/mL (<9)
[2018-03-12 10:28] LABS: Prolactin 1.1 ng/mL (1.0-20.0)
--- NOTE | 2018-03-12 10:39 | CONS ---
CC: Dr. Blake Jack* CONSULTATION REPORT: DATE OF CONSULT: 03/12/18 REASON FOR CONSULT: Hypothermia, abnormal thyroid function, abnormal adrenal function, morbid obesity. HISTORY OF PRESENT ILLNESS: Jaison Lacy is a 42-year-old male. He is unable to provide a medical history as he is intubated and has an encephalopathy. He also has, according to review of the chart, social isolation without any close family members to provide a history. Review of chart shows that he had an initial presentation on 02/15/18 when he presented with chronic lymphedema with a history of left leg cellulitis, on suppressive penicillin. He presented with constipation and hypothermia. At that presentation, his chemistry profile showed a sodium of 142 with potassium of 4.3, chloride of 104, bicarbonate of 36, anion gap 2, BUN 25, creatinine 0.54 , glucose was 157. According to the discharge summary on 02/19/18, the patient was discharged home against medical advice owing to unsafe plan for home care. Despite his mild developmental delay, he was deemed competent to make this decision. The hypothermia resolved using a Geoffrey hugger. He had noted comorbidities of severe obesity, chronic lymphedema with wounds in his extremities with some cellulitis and hypertension. He presented back to the emergency room on 03/07/18 with hypothermia after family member had not heard from him in several days, he was found by the police to be unresponsive. His core temperature was 80 degrees Fahrenheit. He had acute encephalopathy, respiratory failure, was suspected to have sepsis. He had pancytopenia, hyperkalemia, pulmonary opacities. He was intubated and placed on a mechanical ventilator. Initial chemistry on this hospitalization showed sodium 144, potassium 5.4, chloride 107, bicarbonate 31, BUN 39, creatinine 0.89, glucose 114, C-reactive protein of 50, TSH of 8.21. I note that on the previous admission on 02/18/18 his cortisol being 10.28. On this admission, it was 11.81. I note that his total T3 was 68, free T3 was 2.60, and total T4 was 6.69. Toxicology screen at admission was negative. CBC: White count 2.1, hemoglobin 13.3, hematocrit 41, platelets 73. I note that his serology for influenza was negative. Other investigations, imaging: Chest x-ray shows interstitial edema. Brain CT on 03/07/18 showed no acute intracranial pathology. He has had 2 EEGs, one on 03/08/18 which was read as being consistent with encephalopathy and the second one on 03/11/18, again suspicious of mild encephalopathy. PHYSICAL EXAMINATION: Today temperature 99.5, pulse 68, respirations intubated , oxygen saturation 96%, blood pressure 93/46. He has no cyanosis, jaundice, clubbing, or adenopathy. He is severely obese, his weight being 458 pounds. He has central obesity. He has no violaceous striae. He has bruising. He has no abnormal pigmentation. No palmar pigmentation or lip pigmentation. It was difficult to feel his thyroid gland due to intubation, but no clear goiter. He has no signs of acromegaly. He has bilateral lymphedema of both legs with some chronic evidence of inflammation. Cardiovascular system: His pulse was regular. Heart sounds were normal. No added sounds or murmurs. Respiratory system: Anterior chest was clear. Abdomen: No masses, tenderness, or organomegaly. Nervous system: I could not evaluate. His pupils were 3 mm. Fundi difficult to see due to cataracts. ASSESSMENT AND PLAN: Jaison Lacy is a 42-year-old male who presents to the hospital on 2 occasions with significant hypothermia. This is during a severe cold snap. He is socially isolated, mildly has some developmental delay. He is taking penicillin as an outpatient but no other medications. His drug screen is negative making it unlikely that this is due to substance abuse. Endocrine assessment: 1. Thyroid axis: His TSH is mildly elevated. In hypothermia, the TSH usually remains normal, hence it is possible this patient has primary hypothyroidism, perhaps the TSH is inappropriate and should be higher, but is not so due to the hypothermia. He is currently being treated with large doses of intravenous T4. I note that T4 has a long half life. The dose is the equivalent of 200 micrograms per day by mouth. Given his body mass, this may not be inappropriate ; however, he should be given this orally. I will rule out the possibility of autoimmune thyroid disease with the thyroid peroxidase antibody. 2. Adrenal glands: On 2 occasions, he has had inappropriate cortisol levels. During hypothermia, cortisol usually is greater than 20, hence this is unusual. I will check his 21 hydroxylase antibodies to determine if he has primary adrenal insufficiency. However, he does not have abnormalities and pigmentation. He is currently on hydrocortisone which is appropriate and should remain on stress doses until he is extubated and then placed on replacement dose. In the meantime, I will check his renin and aldosterone levels to establish whether he has evidence of mineralocorticoid deficiency. 3. Pituitary gland: It is possible that he has problems with his hypothalamus , pituitary. I note that in that situation his thyroid axis would show a low TSH or a normal range TSH but it would not be elevated; however, it is possible that he has central adrenal insufficiency. I will look at his other anterior pituitary hormones to rule out panhypopituitarism. This will include the growth hormone axis with IGF-1 and growth hormone, the gonadal axis with testosterone, LH, and FSH. I will check alpha subunit in case of a pituitary tumor that is not secreting any other hormones. I will check his prolactin. I would like to image his pituitary but because of his body mass, this will have to wait. I note that nothing was seen on his CAT scan and I will discuss this with Radiology. 4. Severe obesity: The severe obesity accompanied by developmental delay could be due to behavioral issues, but also may reflect an underlying hypothalamic pathology or a syndrome such as Prader-Willi syndrome. I will not be able to establish this until we have more information from the patient and the family. 5. Chronic lymphedema. This is likely secondary to his morbid obesity and is being currently treated. 6. Pancytopenia: I noted Dr. Andrade's consultation note. 7. Encephalopathy: It is possible that myxedema contributes to his encephalopathy. I note that his T3 and T4 indices are not as low as one might expect in this situation; however, we will await the results of his other endocrine testing. 8. Respiratory failure: This is likely secondary to hypothermia. 9. Hypothermia: He has had 2 admissions with this diagnosis. We know that both adrenal insufficiency with low cortisol and myxedema with low thyroid hormone can be a cause of hypothermia; however, there are other causes too which include behavioral. The contribution of these various factors will become clear as he recovers. However, he has extreme risk of recurrence if he is unable to comply with medication and is not prepared to accept increased social support. [id number]/[facility] #: [id number] MOLLY
[2018-03-12 10:51] LABS: Follicle Stimulating Hormone 0.6 mIU/mL (1-20)
[2018-03-12 10:52] LABS: Luteinizing Hormone 0.4 mIU/mL (2-12)
[2018-03-12] MEDS ORDERED: Hydrocortisone INJ* 100 MG VIAL IV SCH (11:00)
[2018-03-12] MEDS ORDERED: Potassium Chloride LIQUID* 20 MEQ PACKET PO ONE (11:04)
[2018-03-12] MEDS: Nystatin TOP POWDER* 15 GM BTL TOPICAL SCH ×3 (11:26→22:22)
[2018-03-12] MEDS: COLLAGENASE 250 MG/GM TOPICAL SCH (11:28)
[2018-03-12] MEDS: KCL 20 MEQ/100 ML IVPREMIX* 20 MEQ/100 ML BAG IV SCH ×2 (11:43→12:48)
[2018-03-12] MEDS: Vasopressin* 100 UNITS in D5W 250 ML BAG* 245 ML IVPB SCH (12:56)
--- NOTE | 2018-03-12 13:33 | PN ---
Progress Note - Progress Note Date of Service: 03/12/18 Note: Progress Note -- Critical Care 24 hour events/significant events: -no events overnight -remains intubated -on dopamine 1 and weaned off now -tolerated cpap yesterday; tolerating now -follows commands, taken off prop -decision to extubate, extubated to aerosol mask -oral sec++ Tele: NSR Vitals: Vital Signs Temp 99.5 F 03/12/18 12:00 Pulse 70 03/12/18 12:00 Resp 11 03/12/18 12:00 BP 102/60 03/12/18 11:47 Pulse Ox 98 03/12/18 12:00 Intake & Output 03/11/18 03/12/18 03/12/18 18:59 06:59 18:59 Intake Total 257.2 1951 192 Output Total 1718 2100 500 Balance -1460.8 -149 -308 Weight 207.893 kg Intake: IV Fluids 79 148 ABX - CEFTRIAXONE 77 NS (0.9%) 79 71 IVPB 97 ABX - CEFTRIAXONE 97 Medicated IV 178.2 833 192 CC - Dopamine 95.5 95 28 CC - Propofol/Diprivan 79.3 738 164 CC - Vasopressin/ 3.4 Pitressin Tube Feeding 873 Output: Urine 285 Correia 1718 1815 500 Other: # Bowel Movements 2 Estimated Stool Amount Large Small O2/Vent: AC 35% -> now on aerosol mask 50% Infusions: dopamine off Medications: Acetaminophen (Tylenol Adult Liq*) 650 mg NG TUBE Q4H PRN PRN Reason: FEVER Last Admin: 03/11/18 03:48 Dose: 650 mg Bisacodyl (Dulcolax Supp*) 10 mg OR DAILY PRN PRN Reason: CONSTIPATION Chlorhexidine Gluconate (Peridex Mouth Wash 0.12%*) 15 ml TOPICAL Q4H [facility] Last Admin: 03/12/18 09:56 Dose: 15 ml Collagenase (Santyl 250 Mg/Gm Oint*) 1 applic TOPICAL DAILY [facility] Last Admin: 03/12/18 11:28 Dose: 1 applic Docusate Sodium (Colace Liq*) 100 mg PO TID [facility] Last Admin: 03/12/18 09:01 Dose: Not Given Famotidine (Pepcid Iv*) 20 mg IV BID [facility] Last Admin: 03/12/18 08:58 Dose: 20 mg Glycopyrrolate (Robinul Iv*) 0.1 mg IV SLOW PU Q8H [facility] Hydrocortisone Sodium Succinate (Solu-Cortef*) 50 mg IV Q12H [facility] Last Admin: 03/12/18 10:38 Dose: 50 mg Dopamine HCl/Dextrose (Dopamine 800 Mg/250 Ml Ivprem*) 800 mg in 250 mls @ 18.115 mls/hr CENTR Q13H [facility]; Protocol Stop: 03/12/18 14:59 Last Admin: 03/12/18 12:56 Dose: Not Given Propofol (Diprivan*) 100 mls @ 23.188 mls/hr IV .(Initial Rate) [facility]; Protocol Last Admin: 03/12/18 09:56 Dose: 29 mls/hr Vasopressin 100 units/ (Dextrose) 250 mls @ 3 mls/hr IVPB Q24H [facility]; Protocol Last Admin: 03/12/18 12:56 Dose: Not Given Ceftriaxone Sodium 1 gm/ (Sodium Chloride) 50 mls @ 200 mls/hr IVPB Q24H [facility] Last Admin: 03/12/18 08:58 Dose: 200 mls/hr Dopamine HCl/Dextrose (Dopamine 800 Mg/250 Ml Ivprem*) 800 mg in 250 mls @ 3.623 mls/hr CENTR Q24H [facility]; Protocol Potassium Chloride (Potassium Chloride 20 Meq/100 Ml Ivpremix*) 20 meq in 100 mls @ 50 mls/hr IV Q2H [facility] Stop: 03/12/18 15:59 Last Admin: 03/12/18 12:48 Dose: 100 mls/hr Levothyroxine Sodium (Synthroid Inj*) 100 mcg IV 0900 [facility] Last Admin: 03/12/18 08:58 Dose: 100 mcg Nystatin (Nystatin Top Powder*) 1 applic TOPICAL TID [facility] Last Admin: 03/12/18 11:26 Dose: 1 applic Polyethylene Glycol/Electrolytes (Miralax*) 17 gm PO BID [facility] Last Admin: 03/12/18 09:01 Dose: Not Given Senna (Senokot Tab*) 2 tab PO BID [facility] Last Admin: 03/12/18 09:01 Dose: Not Given Physical Exam: General: intubated, now extubated, alert, no distress, no diaphoresis Head: normocephalic, atraumatic HEENT: no pallor, no icterus, moist mucous membranes Neck: soft, supple; no stridor post extubation CVS: normal rate, regular, no murmur Resp: bilateral air entry, mild rhales bibasilar, no acc muscle use Abdomen: soft, nontender, nondistended, bowel sounds present Ext: pulses+, warm, no edema Skin: intact Neuro: awake, alert, moving all extremities Labs: Laboratory Results - last 24 hr 03/11/18 03/11/18 03/12/18 11:50 11:50 05:11 WBC RBC Hgb Hct MCV MCH MCHC RDW Plt Count MPV Neut % (Auto) 71.4 Lymph % (Auto) 17.2 Boundary % (Auto) 11.0 Eos % (Auto) 0 Baso % (Auto) 0.4 Absolute Neuts (auto) 5.5 Absolute Lymphs (auto) 1.3 Absolute Monos (auto) 0.8 Absolute Eos (auto) 0 Absolute Basos (auto) 0 Absolute Nucleated RBC 0.1 Nucleated RBC % 0.8 Sodium 148 H Potassium 3.0 L Chloride 106 Carbon Dioxide 36 H Anion Gap 6 BUN 39 H Creatinine 1.18 H Est GFR ( Amer) 81.5 Est GFR (Non-Af Amer) 67.4 BUN/Creatinine Ratio 33.1 H Glucose 141 H Hemoglobin A1c 5.8 H Calcium 8.2 L Magnesium 2.4 FSH Luteinizing Hormone Prolactin Total Testosterone Random Vancomycin 7.4 Thyroid Peroxidase Ab 03/12/18 03/12/18 05:11 08:50 WBC 7.9 RBC 4.00 Hgb 10.9 L Hct 34 L MCV 84 MCH 27 MCHC 32 RDW 18 H Plt Count 56 L D MPV 8.8 Neut % (Auto) Lymph % (Auto) Boundary % (Auto) Eos % (Auto) Baso % (Auto) Absolute Neuts (auto) Absolute Lymphs (auto) Absolute Monos (auto) Absolute Eos (auto) Absolute Basos (auto) Absolute Nucleated RBC Nucleated RBC % Sodium Potassium Chloride Carbon Dioxide Anion Gap BUN Creatinine Est GFR ( Amer) Est GFR (Non-Af Amer) BUN/Creatinine Ratio Glucose Hemoglobin A1c Calcium Magnesium FSH 0.6 L Luteinizing Hormone 0.4 L Prolactin 1.1 Total Testosterone < 10.00 L Random Vancomycin Thyroid Peroxidase Ab 0.91 Imaging: cxr 2/5 - ett above maldonado; mild pulm edema+, similar as prior in basal plata Assessment: 42y M w/pmhx of developmental delay, obesity, DM, Chronic Lymphedema with recurrent cellulitus on chronic PCN suppression; recent admission 02/19, was treated for hypothermia and constipation, but signed AMA. Readmitted for Delirium, hypothermia 81F, bradycardia and shock, intubated for airway protection. Was leukopenic and thrombocytopenic -Acute hypercapneic Respiratory failure, intubated 03/07; ext 03/12 -Suspected Severe sepsis with shock, improved -Bradycardia -Bilateral LE cellulitus -Pulmonary Congestion vs pneumonia, bilateral -Hyperkalemia -SHARON -adrenal insuff suspected, r/o hypothyroidism Chronic LE lymphedema Obesity DM Plan: Neuro- -followed commands off sedation; d/c propofol; extubated -delirium prec, asp prec now -last EEG diffuse slowing -CT brain no acute findings from prior CVS- BP stable; HR 60 NSR. dopamine weaned off. no more bradycardia. -Dec Stress hydrocortisone 50mg q12h, IV levothyroxine 100mcg/daily. Endo consult for evaluation -IV abx for cellulitus coverage and Pna coverage. -CXR with bilateral infiltrates in lower plata, congestion? pneumonia? aspiration? good diuresis with lasix; now hypernatremic, hold lasix Resp- -tolerated CPAP; then t-piece; extubated to aerosol mask -tolerating well, no distress or stridor -oral secetions+; started robinol 0.1mg q8h -CXR 03/11 with bilateral lower field congestion / infiltrate -sputum culture with Staph aureus+ -IV abx -cont bronchodilators PRN -pulm toilet, asp prec ID- -euthermic. afebrile, tmax 99.5 in AM. wbc 7. BLood cx 03/07 1 set anaerobic staph hemolyticus, 2nd set aerobic corynebacterium+; suspected contaminants. Repeat Blood cx 03/08 both negative. SPutum culture 03/09 with staph aureus+. -suspicion for meningitis lower; mental status better; no LP performed. multifactorial etiology of hypothermia and hansa, more systemic infxn likely, given LE cellultus and pneumonia possibility. -CXR with bialteral lower field congestion vs pneumonia -LE B/L lymphedema with breakdown and cellulitic changes+; drainage+ - CTX to 1gm IV daily (day#6), no further ampicillin; Vanco random 15, repeat vanco random now. If MRSA neg, then no further vanco. GI- off feeds, ngt out. h2b. asp prec. swallow eval tomorrow formal. Renal- SHARON noted, multifactorial from bradycardia/shock and low flow state, may be intravasc depleted; improving -hypokalemia, no acidosis. making urine. s/p lasix 40mg IV 2/4 -free water; start d5w 75cc/hr for 10 hrs -maintain correia; keep K>4, Mg>2 Heme- hg 10s, down from 12. no bleeding -severe thrombocytopenia, plt up 50s today; no bleeding noted. Unclear etiology. Heme consulted for possible WOOD? off AC Endo- suspicion for adrenal insuff and myxedema on initial evaluation. history of cold exposure may have caused symptoms also. cont hydrocortisone 50mg q12h and levothyroxine 100mcg/daily IV. Endo consulted for evaluation of this. Musculsk- pressure ulcer prophylaxis. Bedrest. Wounds- LE lymphedema with cellulitis wounds; wound care local. IV abx. pressure prevention. Nutrition- NPO. DVT prophylaxis: off AC 2/2 to thrombocytopenia; off SCDs due to LE wounds GI prophylaxis: h2b Central Line: yes Arterial Line: no Correia Cathetor: yes Disposition: Patient requires Critical Care/ICU for septic shock suspected, respiratory failure Patient clinical status: guarded Code Status: full code Total Critical Care time is 35 minutes, excluding procedures/teaching Perez Najera MD Lime Spreader (Electronically Signed)
[2018-03-12] MEDS ORDERED: D5W 1000 ML BAG* 1,000 ML IV SCH (14:00)
[2018-03-12] MEDS: Glycopyrrolate IV* 0.2 MG/ML 1 ML VIAL IV SLOW PU SCH ×2 (14:49→22:21)
[2018-03-12] MEDS ORDERED: DOPamine 800 MG/250 ML IVPREM* 800 MG/250 ML ML CENTR SCH (15:00)
--- NOTE | 2018-03-12 17:13 | PN ---
Subjective Date of Service: 03/12/18 Length of Stay: 5 Days Neurology is following for the evaluation of encephalopathy. Interval History: He was extubated. He is complaining of throat irritation post extubation. He denied any headache or visual disturbance He reports being able to ambulate at baseline at home. He denied any back pain. Review of Systems: Denied CP, SOB, or palpitations. Objective Active Medications: Acetaminophen (Tylenol Adult Liq*) 650 mg NG TUBE Q4H PRN PRN Reason: FEVER Last Admin: 03/11/18 03:48 Dose: 650 mg Bisacodyl (Dulcolax Supp*) 10 mg MT DAILY PRN PRN Reason: CONSTIPATION Collagenase (Santyl 250 Mg/Gm Oint*) 1 applic TOPICAL DAILY REPLACED BY [facility] Last Admin: 03/12/18 11:28 Dose: 1 applic Docusate Sodium (Colace Cap*) 100 mg PO BID PRN PRN Reason: CONSTIPATION Famotidine (Pepcid Iv*) 20 mg IV DAILY REPLACED BY [facility] Glycopyrrolate (Robinul Iv*) 0.1 mg IV SLOW PU Q8H REPLACED BY [facility] Last Admin: 03/12/18 14:49 Dose: 0.1 mg Hydrocortisone Sodium Succinate (Solu-Cortef*) 50 mg IV Q12H REPLACED BY [facility] Last Admin: 03/12/18 10:38 Dose: 50 mg Ceftriaxone Sodium 1 gm/ (Sodium Chloride) 50 mls @ 200 mls/hr IVPB Q24H REPLACED BY [facility] Last Admin: 03/12/18 08:58 Dose: 200 mls/hr Dextrose (D5w 1000 Ml Bag*) 1,000 mls @ 75 mls/hr IV PER RATE REPLACED BY [facility] Stop: 03/12/18 23:59 Levothyroxine Sodium (Synthroid Inj*) 100 mcg IV 0900 REPLACED BY [facility] Last Admin: 03/12/18 08:58 Dose: 100 mcg Nystatin (Nystatin Top Powder*) 1 applic TOPICAL TID REPLACED BY [facility] Last Admin: 03/12/18 14:07 Dose: Not Given Polyethylene Glycol/Electrolytes (Miralax*) 17 gm PO BID REPLACED BY [facility] Last Admin: 03/12/18 09:01 Dose: Not Given Senna (Senokot Tab*) 2 tab PO BID REPLACED BY [facility] Last Admin: 03/12/18 09:01 Dose: Not Given Vital Signs 03/12/18 03/12/18 03/12/18 15:00 15:01 15:31 Temperature 99.5 F 99.5 F 99.5 F Pulse Rate 74 73 73 Respiratory 25 Rate Blood Pressure 108/59 106/57 (mmHg) O2 Sat by Pulse 98 98 98 Oximetry 03/12/18 03/12/18 16:00 16:01 Temperature 99.5 F 99.5 F Pulse Rate 75 73 Respiratory 23 20 Rate Blood Pressure 104/56 (mmHg) O2 Sat by Pulse 96 97 Oximetry Intake and Output Last 24 Hours 03/10/18 03/11/18 03/12/18 03/13/18 06:59 06:59 06:59 06:59 Intake Total 3074 2538.2 2208.2 533 Output Total 3655 1652 3818 612 Balance -581 886.2 -1609.8 -79 Weight 459 lb 3.566 oz 452 lb 9.744 oz 458 lb 5.203 oz Intake: IV Fluids 1408 484.6 227 341 ABX - CEFTRIAXONE 77 Ampicillin 200 NS (0.9%) 675 484.6 150 341 Vancomycin 533 IVPB 178 410 97 ABX - CEFTRIAXONE 97 Ampicillin 100 310 Vancomycin 78 100 Medicated IV 1253 766.6 1011.2 192 CC - Dopamine 633 455 190.5 28 CC - Propofol/Diprivan 134 817.3 164 CC - Vasopressin/ 140 56.8 3.4 Pitressin Ceftriaxone 108 100 GEN - Magnesium 20.8 vanco 24hrs 372 Oral 0 Tube Feeding 175 577 873 Tube Feeding Flush Amount 60 100 NG Tube Irrigate Amount 200 Output: Urine 285 Navarro 3655 1652 3533 612 Other: # Bowel Movements 2 Estimated Stool Amount Large Small Oxygen Devices in Use Now: Nasal Cannula Neurology Exam: General: Ill appearing obese man resting comfortable. extubated. HEENT: Normocephalic/atraumatic, sclera anicteric, mucous membranes moist Neck: Supple Chest: diminished lung sounds throughout. Cardiovascular: Regular rate and rhythm without murmurs, rubs, gallops Extremities: edematous and elephantiasis appearing distal lower extremity. Neurological Findings: Alert, oriented, and awake but hoarse due to recent extubation. PERRL, EOM-I, no facial asymmetry. He hand shook examiner. He is able to elevate both upper extremities without weakness. Significant weakness and swelling of the lower extremities bilaterally. He did move his toes to command. Sensation is intact to light touch throughout. Reflex: absent throughout. Result Diagrams: 03/12/18 05:11 03/12/18 05:11 Microbiology and Other Data: Microbiology 03/07/18 11:00 Aerobic Blood Culture - Preliminary Blood Venous No Growth Day 4 Anaerobic Blood Culture - Final Staphylococcus Haemolyticus Blood MRSA/MSSA (PCR) - Final Mrsa Negative S.aureus Negative 03/07/18 11:00 Aerobic Blood Culture - Final Blood Venous Corynebacterium Species Anaerobic Blood Culture - Preliminary No Growth Day 4 Blood MRSA/MSSA (PCR) - Final Mrsa Negative S.aureus Negative 03/08/18 14:28 Aerobic Blood Culture - Preliminary Blood Venous No Growth Day 2 Anaerobic Blood Culture - Preliminary No Growth Day 2 03/08/18 14:20 Aerobic Blood Culture - Preliminary Blood Venous No Growth Day 2 Anaerobic Blood Culture - Preliminary No Growth Day 2 03/09/18 14:15 Gram Stain - Final Sputum 03/07/18 14:52 Nasal Screen MRSA (PCR) - Final Nasal Mrsa Not Detected 03/07/18 13:31 Influenza Types A,B Antigen - Final Nasopharyngeal Specimen received for Influenza A/B Molecular testing Assessment/Plan Mr. Jaison Lacy presented to alteration in sensorium and was admitted to the ICU for acute respiratory failure. 1. Acute hypoxic and infectious encephalopathy- extubated and is improving. The etiology is most likely infectious or hypoxic related. I don't suspect meningitis or brainstem infarction. 2. Bilateral lower extremity edema and weakness- he denied any back pain. We need to verify his baseline strength in the lower extremity. There was no contact information on his list to check the patient's baseline strength. He will need rehabilitation. Time spent: 25 minutes. I will sign off but please contact us for any questions or concerns, especially if the patient's lower extremity weakness is new (less likely). D/w the ICU team.
[2018-03-12 17:26] LABS: HIT ELISA 0.251 OD (<0.400)
[2018-03-13 06:06] LABS: Hematocrit 31 % (42-52); Hemoglobin 10.1 g/dl (14.0-18.0); Mean Corpuscular HGB Conc 33 g/dl (31-36); Mean Corpuscular Hemoglobin 27 pg (27-31); Mean Corpuscular Volume 84 fL (80-94); Platelet Count 82 10^3/ul (150-450); Red Cell Distribution Width 18 % (10.5-15); White Blood Count 8.3 10^3/ul (3.5-10.8)
[2018-03-13 06:13] LABS: BUN/Creatinine Ratio 40.4 (8-20); Calcium 8.3 mg/dL (8.6-10.3); EGFR African American 94.3 (>60); EGFR Non-African American 77.9 (>60); Magnesium 2.5 mg/dL (1.9-2.7); Potassium 3.4 mmol/L (3.5-5.0)
[2018-03-13] MEDS: Glycopyrrolate IV* 0.2 MG/ML 1 ML VIAL IV SLOW PU SCH ×2 (06:15→18:08)
--- NOTE | 2018-03-13 07:43 | PN ---
Subjective - Subjective Reason for Note: Progress Note History: Follow up endocrine consultation: He is now extubated. He is alert and attempting to communicate - he has a hoarse voice. He has pain in his legs. He is currently maintaining his body temperature. Active Problems: Active Problems Adrenal insufficiency (Acute) E27.40 Hypogonadotropic hypogonadism (Acute) Hypothyroidism (Acute) E03.9 Current Medications: Current Medications Acetaminophen (Tylenol Adult Liq*) 650 mg NG TUBE Q4H PRN PRN Reason: FEVER Last Admin: 03/11/18 03:48 Dose: 650 mg Bisacodyl (Dulcolax Supp*) [address] DAILY PRN PRN Reason: CONSTIPATION Collagenase (Santyl 250 Mg/Gm Oint*) 1 applic TOPICAL DAILY [facility] Last Admin: 03/12/18 11:28 Dose: 1 applic Docusate Sodium (Colace Cap*) 100 mg PO BID PRN PRN Reason: CONSTIPATION Famotidine (Pepcid Iv*) 20 mg IV DAILY [facility] Glycopyrrolate (Robinul Iv*) 0.1 mg IV SLOW PU Q8H [facility] Last Admin: 03/13/18 06:15 Dose: 0.1 mg Hydrocortisone Sodium Succinate (Solu-Cortef*) 50 mg IV Q12H [facility] Last Admin: 03/12/18 22:21 Dose: 50 mg Ceftriaxone Sodium 1 gm/ (Sodium Chloride) 50 mls @ 200 mls/hr IVPB Q24H [facility] Last Admin: 03/12/18 08:58 Dose: 200 mls/hr Levothyroxine Sodium (Synthroid Inj*) 100 mcg IV 0900 [facility] Last Admin: 03/12/18 08:58 Dose: 100 mcg Nystatin (Nystatin Top Powder*) 1 applic TOPICAL TID [facility] Last Admin: 03/12/18 22:22 Dose: 1 applic Polyethylene Glycol/Electrolytes (Miralax*) 17 gm PO BID [facility] Last Admin: 03/12/18 22:22 Dose: Not Given Senna (Senokot Tab*) 2 tab PO BID [facility] Last Admin: 03/12/18 22:22 Dose: Not Given Home Medications: Home Medications Medication Instructions Recorded Confirmed Type Penicillin VK 500 MG TAB(NF) 500 mg PO BID 02/15/18 03/07/18 History [Penicillin VK 500 mg Tab] Allergies: Allergies Allergy/AdvReac Type Severity Reaction Status Date / Time levofloxacin [From Levaquin] Allergy Headache Verified 02/15/18 16:01 Objective - Vital Signs Vital Signs: Vital Signs 03/12/18 03/12/18 03/12/18 07:31 07:46 08:00 Temperature 99.7 F 99.7 F 99.5 F Pulse Rate 70 70 70 Respiratory 18 Rate Blood Pressure 103/52 98/56 (mmHg) O2 Sat by Pulse 96 96 97 Oximetry 03/12/18 03/12/18 03/12/18 08:01 08:16 08:31 Temperature 99.7 F 99.7 F 99.7 F Pulse Rate 71 70 70 Respiratory Rate Blood Pressure 102/59 91/54 94/54 (mmHg) O2 Sat by Pulse 96 95 96 Oximetry 03/12/18 03/12/18 03/12/18 08:46 09:00 09:01 Temperature 99.7 F 99.7 F 99.7 F Pulse Rate 70 69 69 Respiratory 18 Rate Blood Pressure 98/58 95/52 (mmHg) O2 Sat by Pulse 92 93 93 Oximetry 03/12/18 03/12/18 03/12/18 09:16 09:31 09:46 Temperature 99.7 F 99.7 F 99.5 F Pulse Rate 71 70 71 Respiratory Rate Blood Pressure 94/56 96/57 106/59 (mmHg) O2 Sat by Pulse 94 95 95 Oximetry 03/12/18 03/12/18 03/12/18 10:00 10:01 10:16 Temperature 99.5 F 99.5 F 99.5 F Pulse Rate 70 69 70 Respiratory 18 Rate Blood Pressure 99/59 98/59 (mmHg) O2 Sat by Pulse 96 96 95 Oximetry 03/12/18 03/12/18 03/12/18 10:31 10:46 11:00 Temperature 99.5 F 99.7 F 99.5 F Pulse Rate 70 70 70 Respiratory 18 Rate Blood Pressure 99/58 99/59 (mmHg) O2 Sat by Pulse 96 95 96 Oximetry 03/12/18 03/12/18 03/12/18 11:01 11:17 11:31 Temperature 99.5 F 99.7 F 99.7 F Pulse Rate 70 76 67 Respiratory Rate Blood Pressure 96/59 129/106 87/51 (mmHg) O2 Sat by Pulse 96 95 95 Oximetry 03/12/18 03/12/18 03/12/18 11:47 12:00 12:01 Temperature 99.5 F 99.5 F 99.3 F Pulse Rate 70 70 71 Respiratory 11 Rate Blood Pressure 102/60 100/53 (mmHg) O2 Sat by Pulse 98 98 97 Oximetry 03/12/18 03/12/18 03/12/18 12:16 12:31 12:46 Temperature 99.3 F 99.3 F 99.3 F Pulse Rate 74 79 81 Respiratory Rate Blood Pressure 110/65 124/85 123/61 (mmHg) O2 Sat by Pulse 99 97 96 Oximetry 03/12/18 03/12/18 03/12/18 13:00 13:01 13:16 Temperature 99.3 F 99.3 F 99.3 F Pulse Rate 83 82 81 Respiratory 24 Rate Blood Pressure 91/54 105/64 (mmHg) O2 Sat by Pulse 92 92 97 Oximetry 03/12/18 03/12/18 03/12/18 13:31 13:46 14:00 Temperature 99.3 F 99.3 F 99.5 F Pulse Rate 80 76 79 Respiratory 24 Rate Blood Pressure 122/58 96/56 (mmHg) O2 Sat by Pulse 96 98 98 Oximetry 03/12/18 03/12/18 03/12/18 14:01 14:16 14:19 Temperature 99.5 F 99.5 F Pulse Rate 81 74 Respiratory Rate Blood Pressure 107/61 (mmHg) O2 Sat by Pulse 98 98 99 Oximetry 03/12/18 03/12/18 03/12/18 14:31 15:00 15:01 Temperature 99.5 F 99.5 F 99.5 F Pulse Rate 76 74 73 Respiratory 25 Rate Blood Pressure 105/60 108/59 (mmHg) O2 Sat by Pulse 97 98 98 Oximetry 03/12/18 03/12/18 03/12/18 15:31 16:00 16:01 Temperature 99.5 F 99.5 F 99.5 F Pulse Rate 73 75 73 Respiratory 23 20 Rate Blood Pressure 106/57 104/56 (mmHg) O2 Sat by Pulse 98 96 97 Oximetry 03/12/18 03/12/18 03/12/18 17:00 17:01 18:00 Temperature 99.3 F 99.3 F 99.0 F Pulse Rate 71 71 71 Respiratory 18 18 20 Rate Blood Pressure 111/64 (mmHg) O2 Sat by Pulse 97 97 98 Oximetry 03/12/18 03/12/18 03/12/18 18:01 19:00 19:01 Temperature 99.0 F 98.8 F 98.8 F Pulse Rate 71 74 72 Respiratory 18 20 19 Rate Blood Pressure 109/59 103/60 (mmHg) O2 Sat by Pulse 98 99 98 Oximetry 03/12/18 03/12/18 03/12/18 20:00 21:00 21:01 Temperature Pulse Rate 72 68 68 Respiratory 17 17 24 Rate Blood Pressure 105/57 (mmHg) O2 Sat by Pulse 98 99 99 Oximetry 03/12/18 03/12/18 03/12/18 22:00 22:01 23:00 Temperature Pulse Rate 68 64 64 Respiratory 18 17 18 Rate Blood Pressure 105/58 (mmHg) O2 Sat by Pulse 98 97 100 Oximetry 03/12/18 03/12/18 03/13/18 23:01 23:38 00:00 Temperature 97.3 F 97.3 F Pulse Rate 65 64 64 Respiratory 16 16 21 Rate Blood Pressure 102/58 (mmHg) O2 Sat by Pulse 99 98 100 Oximetry 03/13/18 03/13/18 03/13/18 00:01 01:00 01:01 Temperature 97.3 F 97.3 F 97.2 F Pulse Rate 65 64 64 Respiratory 20 16 15 Rate Blood Pressure 113/62 108/58 (mmHg) O2 Sat by Pulse 100 99 98 Oximetry 03/13/18 03/13/18 03/13/18 02:00 02:01 03:00 Temperature 97.3 F 97.3 F 97.2 F Pulse Rate 68 63 63 Respiratory 9 11 16 Rate Blood Pressure 104/60 (mmHg) O2 Sat by Pulse 99 99 Oximetry 03/13/18 03/13/18 03/13/18 03:01 04:00 04:01 Temperature 97.2 F 97.3 F 97.2 F Pulse Rate 65 64 64 Respiratory 14 13 16 Rate Blood Pressure 105/58 102/57 (mmHg) O2 Sat by Pulse 98 98 99 Oximetry 03/13/18 03/13/18 03/13/18 05:00 05:01 06:00 Temperature 97.2 F 97.2 F Pulse Rate 62 64 62 Respiratory 14 9 13 Rate Blood Pressure 110/59 (mmHg) O2 Sat by Pulse 100 100 100 Oximetry 03/13/18 06:01 Temperature Pulse Rate 63 Respiratory 17 Rate Blood Pressure 108/69 (mmHg) O2 Sat by Pulse 100 Oximetry - Intake and Output Intake and Output: Intake & Output 03/10/18 03/11/18 03/12/18 03/13/18 11:59 11:59 11:59 11:59 Intake Total 3174 2438.2 2208.2 691.9 Output Total 3395 1600 3955 662 Balance -221 838.2 -1746.8 29.9 Weight 459 lb 3.566 oz 452 lb 9.744 oz 458 lb 5.203 oz Intake: IV Fluids 1408 484.6 227 499.9 ABX - CEFTRIAXONE 77 Ampicillin 200 NS (0.9%) 675 484.6 150 499.9 Vancomycin 533 IVPB 178 410 97 ABX - CEFTRIAXONE 97 Ampicillin 100 310 Vancomycin 78 100 Medicated IV 1253 766.6 1011.2 192 CC - Dopamine 633 455 190.5 28 CC - Propofol/Diprivan 134 817.3 164 CC - Vasopressin/ 140 56.8 3.4 Pitressin Ceftriaxone 108 100 GEN - Magnesium 20.8 vanco 24hrs 372 Oral 0 Tube Feeding 175 577 873 Tube Feeding Flush Amount 160 NG Tube Irrigate Amount 200 Output: Urine 285 [place] 3395 1600 3670 662 Other: # Bowel Movements 2 Estimated Stool Amount Small ADLs: Meal Record Start: 03/07/18 12: 57 Freq: Status: Active Protocol: Created 03/07/18 12:57 System (Rec: 03/07/18 12:57 System ICU-C12) Document 03/07/18 13:00 [id number] (Rec: 03/07/18 13:54 [id number] ICU-C25) Document 03/07/18 17:07 LZK7399 (Rec: 03/07/18 17:07 ZLR0792 ICU-C25) Document 03/08/18 08:59 GGL0068 (Rec: 03/08/18 08:59 MEP4412 ICU-C06) Document 03/08/18 13:00 AGO3824 (Rec: 03/08/18 13:11 CGG0197 ICU-C06) Document 03/08/18 17:51 RKE6861 (Rec: 03/08/18 17:52 RVI2911 ICU-C06) Document 03/09/18 09:00 NNA7720 (Rec: 03/09/18 11:32 ERK3606 ICU-C06) Document 03/09/18 13:00 LCM8901 (Rec: 03/09/18 17:44 WTB8912 ICU-C14) Document 03/09/18 18:00 WRN8421 (Rec: 03/09/18 18:18 EEQ2643 ICU-C06) Document 03/10/18 09:00 ZYI3397 (Rec: 03/10/18 09:53 ZJQ6727 ICU-C06) Document 03/10/18 13:00 BTW0147 (Rec: 03/10/18 14:33 VZJ7778 ICU-M22) Document 03/10/18 18:00 MKC3505 (Rec: 03/10/18 18:26 SFR3825 ICU-M22) Intake and Output Start: 03/07/18 11: 04 Freq: Status: Active Protocol: Created 03/07/18 11:05 System (Rec: 03/07/18 11:05 System EDRM-C16) Document 03/07/18 12:25 MKK0229 (Rec: 03/07/18 12:25 IOF6685 EDRM-C16) Intake and Output Start: 03/07/18 12: 57 Freq: Q1HR Status: Active Protocol: Created 03/07/18 12:57 System (Rec: 03/07/18 12:57 System ICU-C12) Document 03/07/18 16:27 VPE6063 (Rec: 03/07/18 16:27 BDP0453 ICU-C25) Document 03/07/18 17:00 ZNA7251 (Rec: 03/07/18 17:01 AKH5088 ICU-C25) Document 03/07/18 18:00 AIS8821 (Rec: 03/07/18 18:39 EEZ9028 ICU-C25) Document 03/07/18 19:53 LQI3728 (Rec: 03/07/18 19:54 UJL5890 ICU-C06) Document 03/07/18 22:00 OII1578 (Rec: 03/07/18 22:15 WPP7098 ICU-C06) Document 03/07/18 23:00 SWQ3900 (Rec: 03/07/18 23:20 DHG4599 ICU-M19) Document 03/08/18 00:00 JCW9477 (Rec: 03/08/18 01:10 TWJ2342 ICU-C06) Document 03/08/18 01:00 RCV6490 (Rec: 03/08/18 01:34 NPK8590 ICU-M19) Document 03/08/18 02:00 QGR9221 (Rec: 03/08/18 02:55 HRO9284 ICU-C06) Document 03/08/18 04:00 MVR9754 (Rec: 03/08/18 04:48 ACW7238 ICU-C06) Document 03/08/18 06:00 JDR8804 (Rec: 03/08/18 06:11 KRH2649 ICU-M19) Document 03/08/18 07:00 ENK9126 (Rec: 03/08/18 09:01 KAZ0155 ICU-C06) Document 03/08/18 08:00 REY7468 (Rec: 03/08/18 09:02 EPB3875 ICU-C06) Document 03/08/18 09:00 WRC3483 (Rec: 03/08/18 09:02 GOH8502 ICU-C06) Document 03/08/18 10:00 OGG8205 (Rec: 03/08/18 10:53 PCQ7252 ICU-C06) Document 03/08/18 10:53 AIY5703 (Rec: 03/08/18 10:53 YOM7449 ICU-C06) Document 03/08/18 12:00 BJS9980 (Rec: 03/08/18 12:37 VPU5316 ICU-C06) Document 03/08/18 13:00 PBE4578 (Rec: 03/08/18 13:11 MPM6536 ICU-C06) Document 03/08/18 14:00 PEF6537 (Rec: 03/08/18 14:57 MFJ9857 ICU-C06) Document 03/08/18 14:57 KWE3006 (Rec: 03/08/18 14:57 SUA2419 ICU-C06) Document 03/08/18 16:00 HJH4154 (Rec: 03/08/18 16:08 YNZ8124 ICU-C06) Document 03/08/18 17:00 QJL8941 (Rec: 03/08/18 17:15 TXV5630 ICU-C06) Document 02/01/19 17:45 IXU5658 (Rec: 03/08/18 17:45 QSI8632 ICU-M19) Document 03/08/18 17:45 QIA1637 (Rec: 03/08/18 17:46 UPL7120 ICU-M19) Document 03/08/18 19:00 JXE6186 (Rec: 03/08/18 19:30 NHN5218 ICU-C06) Document 03/08/18 20:56 XCD2453 (Rec: 03/08/18 20:57 KSK1440 ICU-M19) Document 03/08/18 22:00 JGA5052 (Rec: 03/08/18 22:07 ZWX3108 ICU-C06) Document 03/08/18 23:00 EWS8760 (Rec: 03/08/18 23:57 PIS6831 ICU-M19) Document 03/08/18 23:57 GNI0143 (Rec: 03/08/18 23:57 CRR3500 ICU-M19) Document 03/09/18 01:00 RBN8654 (Rec: 03/09/18 01:12 ZAZ6710 ICU-C06) Document 03/09/18 02:00 GOV7860 (Rec: 03/09/18 02:06 BSB8072 ICU-C06) Document 03/09/18 03:00 LYG6003 (Rec: 03/09/18 03:04 WSN2631 ICU-C06) Document 03/09/18 04:00 KPI7238 (Rec: 03/09/18 04:27 MQR7406 ICU-C06) Document 03/09/18 05:00 OLR3703 (Rec: 03/09/18 05:03 TDW7114 ICU-M19) Document 03/09/18 06:00 NJV1576 (Rec: 03/09/18 06:06 OUX0565 ICU-M19) Document 03/09/18 06:29 ZYB9263 (Rec: 03/09/18 06:29 SRU8586 ICU-C06) Document 03/09/18 08:29 VUX4821 (Rec: 03/09/18 08:29 CPC5290 ICU-M19) Document 03/09/18 09:00 RYV7412 (Rec: 03/09/18 11:05 UAH3461 ICU-M19) Document 03/09/18 10:00 IGO2705 (Rec: 03/09/18 11:05 XUG3836 ICU-M19) Document 03/09/18 11:00 RRH4869 (Rec: 03/09/18 11:05 SUA0401 ICU-M19) Document 03/09/18 12:00 DNP8034 (Rec: 03/09/18 13:03 WVO7685 ICU-M19) Document 03/09/18 13:00 MHB7211 (Rec: 03/09/18 13:04 NFR5930 ICU-M19) Document 03/09/18 14:00 NJP4817 (Rec: 03/09/18 14:48 QLJ4750 ICU-M19) Document 03/09/18 15:00 LIR0805 (Rec: 03/09/18 18:18 HEQ0469 ICU-C06) Document 03/09/18 16:00 QII2818 (Rec: 03/09/18 18:18 VSG4527 ICU-C06) Document 03/09/18 17:00 XRB0755 (Rec: 03/09/18 18:18 HOK3561 ICU-C06) Document 03/09/18 18:00 ABS5446 (Rec: 03/09/18 18:18 AYF2268 ICU-C06) Document 03/09/18 19:00 FGF9361 (Rec: 03/09/18 21:46 RVI9212 ICU-C06) Document 03/09/18 20:00 NNU2497 (Rec: 03/09/18 21:46 DWV9627 ICU-C06) Document 03/09/18 21:00 YNH1384 (Rec: 03/09/18 22:26 XFC8692 ICU-M19) Document 03/09/18 22:00 MAK3152 (Rec: 03/09/18 22:26 HZH6048 ICU-M19) Document 03/09/18 23:00 FXL7327 (Rec: 03/10/18 02:11 YAO7274 ICU-M19) Document 03/10/18 00:00 OKO4866 (Rec: 03/10/18 02:11 UKK3574 ICU-M19) Document 03/10/18 01:00 JQC3697 (Rec: 03/10/18 02:11 HVO0939 ICU-M19) Document 03/10/18 02:00 EVF3129 (Rec: 03/10/18 02:11 GJV0983 ICU-M19) Document 03/10/18 03:00 WBC2925 (Rec: 03/10/18 03:59 TYF4787 ICU-M19) Document 03/10/18 03:59 IYI3095 (Rec: 03/10/18 03:59 DYI3548 ICU-M19) Document 03/10/18 04:44 BPN5949 (Rec: 03/10/18 04:44 FFC9615 ICU-M19) Document 03/10/18 06:00 RWM3602 (Rec: 03/10/18 06:22 JKT4998 ICU-M19) Document 03/10/18 07:00 INM1894 (Rec: 03/10/18 08:30 RQI9307 ICU-M19) Document 03/10/18 08:00 DKY1267 (Rec: 03/10/18 08:30 DRB1630 ICU-M19) Document 03/10/18 09:00 VLG5829 (Rec: 03/10/18 09:53 OAT8471 ICU-C06) Document 03/10/18 10:00 BOY1961 (Rec: 03/10/18 10:03 EJT1174 ICU-C06) Document 03/10/18 11:00 TBX6271 (Rec: 03/10/18 11:35 CKS2169 ICU-M19) Document 03/10/18 13:00 GXO4051 (Rec: 03/10/18 14:16 JRI4738 ICU-M19) Document 03/10/18 14:00 YCR6907 (Rec: 03/10/18 14:17 WQO0312 ICU-M19) Document 03/10/18 15:00 RBN3988 (Rec: 03/10/18 16:09 PLW8865 ICU-M22) Document 03/10/18 16:00 GRQ5459 (Rec: 03/10/18 16:23 QTQ6325 ICU-M22) Document 03/10/18 17:00 VTU6042 (Rec: 03/10/18 18:19 ZXI5653 ICU-M22) Document 03/10/18 18:00 AMQ8137 (Rec: 03/10/18 18:20 ESM7178 ICU-M22) Document 03/10/18 19:00 SZH3055 (Rec: 03/10/18 20:12 WGI1197 ICU-C07) Document 03/10/18 20:00 IAQ8942 (Rec: 03/10/18 20:12 IDK2755 ICU-C07) Document 03/10/18 21:00 ROT6485 (Rec: 03/10/18 23:15 XQV6710 ICU-M19) Document 03/10/18 22:00 EXM1190 (Rec: 03/10/18 23:16 FFF3672 ICU-M19) Document 03/10/18 23:00 YDP7465 (Rec: 03/10/18 23:16 BKH0436 ICU-M19) Document 03/11/18 00:00 SSW6910 (Rec: 03/11/18 02:01 HZJ6109 ICU-C25) Document 03/11/18 01:00 TYJ0870 (Rec: 03/11/18 02:01 RZW2391 ICU-C25) Document 03/11/18 02:00 QSZ4188 (Rec: 03/11/18 02:01 GDV9314 ICU-C25) Document 03/11/18 03:00 ZYR1330 (Rec: 03/11/18 03:14 QRV9808 ICU-M19) Document 03/11/18 04:00 HUG7632 (Rec: 03/11/18 04:31 XJM6370 ICU-M22) Document 03/11/18 05:00 CLM0302 (Rec: 03/11/18 06:22 JVD4614 ICU-M19) Document 03/11/18 06:00 DYB2745 (Rec: 03/11/18 06:23 YEV7173 ICU-M19) Document 03/11/18 07:00 YKD1424 (Rec: 03/11/18 08:02 SGQ0162 ICU-M19) Document 03/11/18 08:00 TQM5593 (Rec: 03/11/18 08:13 VGH9787 ICU-M19) Document 03/11/18 10:00 MCC4108 (Rec: 03/11/18 10:30 COS3078 ICU-C06) Document 03/11/18 12:00 OOD8075 (Rec: 03/11/18 12:15 QSP8042 ICU-C06) Document 03/11/18 13:00 KMR3111 (Rec: 03/11/18 13:42 LJX9001 ICU-C06) Document 03/11/18 16:00 EUV5372 (Rec: 03/11/18 16:07 GPI5173 ICU-C06) Document 03/11/18 16:43 GHN2629 (Rec: 03/11/18 16:43 GDY5967 ICU-C06) Document 03/11/18 17:00 PTK0453 (Rec: 03/11/18 17:12 FJQ2726 ICU-M19) Document 03/11/18 18:00 DUZ0015 (Rec: 03/11/18 18:10 NUF3613 ICU-C06) Document 03/11/18 18:30 TMR1029 (Rec: 03/11/18 18:30 OVD9222 ICU-C06) Document 03/11/18 19:00 YVC3237 (Rec: 03/11/18 19:16 YDC5648 ICU-C06) Document 03/11/18 20:00 DOU7820 (Rec: 03/11/18 20:27 FNF1090 ICU-C06) Document 03/11/18 21:00 NBM8037 (Rec: 03/11/18 22:34 EKY2662 ICU-C06) Document 03/11/18 22:00 GVS9543 (Rec: 03/11/18 22:34 JQZ1837 ICU-C06) Document 03/11/18 23:00 LOO1678 (Rec: 03/11/18 23:57 MWZ4762 ICU-C06) Document 03/12/18 01:00 UWP9351 (Rec: 03/12/18 05:46 JEO8193 ICU-C06) Document 03/12/18 02:00 NYG8994 (Rec: 03/12/18 05:46 VPW9415 ICU-C06) Document 03/12/18 03:00 BVX9557 (Rec: 03/12/18 05:46 YLY9016 ICU-C06) Document 03/12/18 04:00 SIB8234 (Rec: 03/12/18 05:47 UHK8783 ICU-C06) Document 03/12/18 05:00 ZYY8531 (Rec: 03/12/18 05:47 QGW5581 ICU-C06) Document 03/12/18 06:00 PPT3917 (Rec: 03/12/18 07:12 ADR5619 ICU-C06) Document 03/12/18 07:00 CSA3844 (Rec: 03/12/18 07:12 FTX5393 ICU-C06) Document 03/12/18 08:00 LCP0865 (Rec: 03/12/18 08:07 WPC4974 ICU-C12) Document 03/12/18 09:00 XFO4519 (Rec: 03/12/18 10:02 TKK1198 ICU-C12) Document 03/12/18 10:00 ATB9344 (Rec: 03/12/18 10:17 NPZ3541 ICU-C12) Document 03/12/18 11:00 BNH0172 (Rec: 03/12/18 11:54 FUI6729 ICU-C12) Document 03/12/18 12:00 TCG1731 (Rec: 03/12/18 12:19 FRK1502 ICU-C12) Document 03/12/18 13:00 KJA7245 (Rec: 03/12/18 13:04 FMF6482 ICU-M19) Document 03/12/18 14:00 UNZ7557 (Rec: 03/12/18 14:26 HYM0482 ICU-C12) Document 03/12/18 15:00 DRS2012 (Rec: 03/12/18 15:35 YAM0543 ICU-C12) Document 03/12/18 16:00 MPU5161 (Rec: 03/12/18 16:30 KWZ1910 ICU-M34) Document 03/12/18 17:00 YBW0402 (Rec: 03/12/18 18:06 RTY8677 ICU-M34) Document 03/12/18 18:00 KNV0397 (Rec: 03/12/18 18:06 FED9714 ICU-M34) Document 03/12/18 19:00 TBU7768 (Rec: 03/12/18 19:11 QJE6883 ICU-M19) Document 03/12/18 20:00 QIV7319 (Rec: 03/12/18 23:36 JPR2308 ICU-C06) Document 03/12/18 21:00 PIS6006 (Rec: 03/12/18 23:36 XBR1484 ICU-C06) Document 03/12/18 22:00 LAQ0057 (Rec: 03/13/18 01:34 JPW7288 ICU-C06) Document 03/12/18 23:00 KTD7694 (Rec: 03/13/18 01:34 ENF5849 ICU-C06) Document 03/13/18 00:00 ENQ3828 (Rec: 03/13/18 01:34 QST9953 ICU-C06) Document 03/13/18 01:00 IZN8841 (Rec: 03/13/18 02:03 PKD1481 ICU-C06) Document 03/13/18 02:00 AAY7560 (Rec: 03/13/18 02:03 IAL1752 ICU-C06) Document 03/13/18 03:00 BWQ9175 (Rec: 03/13/18 03:04 EKW7159 ICU-C06) Document 03/13/18 06:00 KCF6248 (Rec: 03/13/18 06:05 KCO8591 ICU-M19) Results - Results Lab Results: Laboratory Results - last 24 hr 03/09/18 03/12/18 03/13/18 14:45 08:50 05:30 WBC RBC Hgb Hct MCV MCH MCHC RDW Plt Count MPV HIT Functional 0.251 Sodium 150 H Potassium 3.4 L Chloride 109 Carbon Dioxide 37 H Anion Gap 4 BUN 42 H Creatinine 1.04 Est GFR ( Amer) 94.3 Est GFR (Non-Af Amer) 77.9 BUN/Creatinine Ratio 40.4 H Glucose 95 Calcium 8.3 L Magnesium 2.5 FSH 0.6 L Luteinizing Hormone 0.4 L Prolactin 1.1 Total Testosterone < 10.00 L Thyroid Peroxidase Ab 0.91 Heparin-PF4 Ab Interp Negative Heparin-PF4 Ab Comment See comment 03/13/18 05:30 WBC 8.3 RBC 3.70 L Hgb 10.1 L Hct 31 L MCV 84 MCH 27 MCHC 33 RDW 18 H Plt Count 82 L MPV 9.0 HIT Functional Sodium Potassium Chloride Carbon Dioxide Anion Gap BUN Creatinine Est GFR ( Amer) Est GFR (Non-Af Amer) BUN/Creatinine Ratio Glucose Calcium Magnesium FSH Luteinizing Hormone Prolactin Total Testosterone Thyroid Peroxidase Ab Heparin-PF4 Ab Interp Heparin-PF4 Ab Comment Assessment - Problem List Assessment: Patient Problems Adrenal insufficiency (Acute) Hypogonadotropic hypogonadism (Acute) Hypothyroidism (Acute) Constipation (Acute) DVT prophylaxis (Acute) Hypothermia (Acute) Lymphedema (Acute) Obesity (Acute) Venous stasis ulcer of leg without varicose veins (Acute) Plan: Adrenal insufficiency (Acute) He continues to receive stress doses of hydrocortisone parenterally. Once his swallowing is deemed safe, he can go to oral supplementation. I think he should remain on this after discharge and he will require a cosyntropin test with a baseline ACTH after a few weeks to determine if he has any residual function Hypothyroidism (Acute) I note he has negative thyroid peroxidase abs. We can consider a thyroid US to determine if he has a goiter and if it has the echotexture of a chronic lymphocytic thyroiditis. Hypogonadotropic hypogonadism (Acute) This is likely an effect of cold and we can follow this as he recovers. However, it is possible he has fdc hypogonadotropic hypogonadism. I note his prolactin is not elevated, hence I don't think this hypogonadism is secondary to hyperprolactinemia. This will require follow up as an outpatient Anterior pituitary function: This is a mixed picture. He has a raised TSH suggesting activity of his thyrotrophs. The literature suggests not much change in TSH during cold exposure. However, it is possible this was a reaction to the cold, as opposed to evidence of primary hypothyroidism. The growth hormone/IGF-1 and alpha subunit of pituitary glycoproteins are pending. Imaging of his pituitary is important - though likely to be performed as an outpatient. Hypothermia (Acute) Adrenal insufficiency and hypothyroidism contributed to this - but I doubt whether they are the only factors causing his hypothermia. Clearly, the bitter cold weather contributed. 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
[2018-03-13] MEDS: cefTRIAXone(*) 1 GM in NS 0.9% 50 ML* 50 ML IVPB SCH (09:00)
[2018-03-13] MEDS ORDERED: Famotidine IV* 10 MG/ML 2 ML (20 mg) IV SCH (09:00)
[2018-03-13] MEDS ORDERED: Docusate CAP* 100 MG PO PRN (09:00)
[2018-03-13] MEDS: Levothyroxine INJ* 100 MCG/5 ML VIAL IV SCH (09:00)
[2018-03-13] MEDS: COLLAGENASE 250 MG/GM TOPICAL SCH (09:01)
[2018-03-13] MEDS: Nystatin TOP POWDER* 15 GM BTL TOPICAL SCH ×2 (09:01→13:59)
[2018-03-13] MEDS: Senna TAB PO SCH ×2 (09:03→20:38)
[2018-03-13] MEDS: Polyethylene Glycol 3350* 17 GM PACKET PO SCH ×2 (09:03→20:38)
[2018-03-13] MEDS: Hydrocortisone INJ* 100 MG VIAL IV SCH (09:52)
--- NOTE | 2018-03-13 10:55 | PN ---
Progress Note - Progress Note Date of Service: 03/13/18 SOAP: Subjective: [Extubated yesterday.] Objective: [ Laboratory Results - last 24 hr 03/09/18 03/12/18 03/13/18 14:45 08:50 05:30 WBC RBC Hgb Hct MCV MCH MCHC RDW Plt Count MPV HIT Functional 0.251 Sodium 150 H Potassium 3.4 L Chloride 109 Carbon Dioxide 37 H Anion Gap 4 BUN 42 H Creatinine 1.04 Est GFR ( Amer) 94.3 Est GFR (Non-Af Amer) 77.9 BUN/Creatinine Ratio 40.4 H Glucose 95 Calcium 8.3 L Magnesium 2.5 FSH 0.6 L Luteinizing Hormone 0.4 L Heparin-PF4 Ab Interp Negative Heparin-PF4 Ab Comment See comment 03/13/18 05:30 WBC 8.3 RBC 3.70 L Hgb 10.1 L Hct 31 L MCV 84 MCH 27 MCHC 33 RDW 18 H Plt Count 82 L MPV 9.0 HIT Functional Sodium Potassium Chloride Carbon Dioxide Anion Gap BUN Creatinine Est GFR ( Amer) Est GFR (Non-Af Amer) BUN/Creatinine Ratio Glucose Calcium Magnesium FSH Luteinizing Hormone Heparin-PF4 Ab Interp Heparin-PF4 Ab Comment Acetaminophen (Tylenol Adult Liq*) 650 mg NG TUBE Q4H PRN PRN Reason: FEVER Last Admin: 03/11/18 03:48 Dose: 650 mg Bisacodyl (Dulcolax Supp*) 10 mg [place] DAILY PRN PRN Reason: CONSTIPATION Collagenase (Santyl 250 Mg/Gm Oint*) 1 applic TOPICAL DAILY [facility] Last Admin: 03/13/18 09:01 Dose: 1 applic Docusate Sodium (Colace Cap*) 100 mg PO BID PRN PRN Reason: CONSTIPATION Famotidine (Pepcid Iv*) 20 mg IV DAILY [facility] Last Admin: 03/13/18 09:00 Dose: 20 mg Glycopyrrolate (Robinul Iv*) 0.1 mg IV SLOW PU Q8H [facility] Last Admin: 03/13/18 06:15 Dose: 0.1 mg Hydrocortisone Sodium Succinate (Solu-Cortef*) 50 mg IV Q12H [facility] Last Admin: 03/13/18 09:52 Dose: 50 mg Ceftriaxone Sodium 1 gm/ (Sodium Chloride) 50 mls @ 200 mls/hr IVPB Q24H [facility] Last Admin: 03/13/18 09:00 Dose: 200 mls/hr Levothyroxine Sodium (Synthroid Inj*) 100 mcg IV 09 [facility] Last Admin: 03/13/18 09:00 Dose: 100 mcg Nystatin (Nystatin Top Powder*) 1 applic TOPICAL TID [facility] Last Admin: 03/13/18 09:01 Dose: 1 applic Polyethylene Glycol/Electrolytes (Miralax*) 17 gm PO BID [facility] Last Admin: 03/13/18 09:03 Dose: Not Given Senna (Senokot Tab*) 2 tab PO BID [facility] Last Admin: 03/13/18 09:03 Dose: Not Given Vital Signs: Temp Pulse Resp BP Pulse Ox 98.0 F 74 16 119/64 95 03/13/18 07:58 03/13/18 09:01 03/13/18 09:01 03/13/18 09:01 03/13/18 09:01 Exam: Unable to be examined this morning, due to acute hygiene needs] Assessment: [42 yo male admitted with severe sepsis and acute respiratory failure requiring intubation. Hematology consultation requested for thrombocytopenia which appears to be improving spontaneously.] Plan: [1. Thrombocytopenia - likely due to sepsis v drug reaction to PCN - spontaneously improved - now that platelets have consistently been greater than >50K, ok to resume DVT prophylaxis with heparin product - cont to monitor, but no additional intervention necessary 2. Severe sepsis 3. Acute respiratory failure Hematology group will sign off at this time, but available to re-evaluate if new concerns arise]
[2018-03-13 13:18] LABS: Albumin/Globulin Ratio 0.55; Gamma Globulin 1.6 g/dL (0.6-1.6); Total Protein(PEP) 5.7 g/dL (6.3 - 7.9)
--- NOTE | 2018-03-13 13:38 | CONSULT ---
Consult Consult: WOUND CONSULT NOTE Date of Service: 03/13/18 History: Interval History: Patient seen and examined at bedside. He is non-verbal but nods his head to yes and no questions. Denies fever, chills, or pain. Mr. Lacy is a 42 yo male with PMH significant for DM, obesity, developmental delay, and chronic lymphedema; who presented to the emergency room for AMS. He was admitted to the ICU with acute encephalopathy, acute respiratory failure requiring intubation, and sepsis secondary to cellulitis. He was extubated on 03/12/18, but remains in the ICU. Requested to be seen for pannus/groin skin issues and weeping wounds to [facility]. Previously seen by a wound nurse and noted to have a superficial left medical thigh wound, this has healed and is no longer visualized. Past Medical/Family/Social History: Family History: Unchanged from Admission Social History: Unchanged from Admission Past Medical History: Unchanged from Admission Objective: Active Medications: Collagenase (Santyl 250 Mg/Gm Oint*) 1 applic TOPICAL DAILY [facility] Acetaminophen (Tylenol Adult Liq*) 650 mg NG TUBE Q4H PRN Reason: FEVER Bisacodyl (Dulcolax Supp*) 10 mg [place] DAILY PRN Reason: CONSTIPATION Dextrose (D5w 1000 Ml Bag*) 1,000 mls @ 75 mls/hr IV PER RATE [facility] Stop: 03/14/18 03:19 Docusate Sodium (Colace Cap*) 100 mg PO BID PRN Reason: CONSTIPATION Glycopyrrolate (Robinul Iv*) 0.1 mg IV SLOW PU Q12H [facility] Nystatin (Nystatin Top Powder*) 1 applic TOPICAL TID [facility] Polyethylene Glycol/Electrolytes (Miralax*) 17 gm PO BID [facility] Potassium Chloride (Klor Con Er Tab*) 20 meq PO BID [facility] Stop: 03/15/18 20:59 Prednisone (Deltasone Tab*) 20 mg PO DAILY [facility] Senna (Senokot Tab*) 2 tab PO BID [facility] Levothyroxine Sodium (Synthroid Inj*) 100 mcg IV 0900 [facility] Hydrocortisone Sodium Succinate (Solu-Cortef*) 50 mg IV Q12H [facility] Famotidine (Pepcid Iv*) 20 mg IV DAILY [facility] Vital Signs: 03/13/18 03/13/18 07:58 11:01 Temperature 98.0 F Pulse Rate 61 Heart Rate 60 Respiratory 17 Rate Blood Pressure 110/57 (mmHg) Blood Pressure 66 Mean O2 Sat by Pulse 100 Oximetry Exam: General: NAD, sitting up in bed Neuro: Alert, unable to determine orientation Skin: Left lateral LE ulcer. 8.5 cm x 4 cm x 0.2 cm. Wound bed is covered with yellow slough. Surrounding skin is macerated with a build up of lymphedema drainage. Not pictured: Left upper lip with a dry necrotic area measuring 3.5 cm x 1.2 cm Right LE with macerated skin and build up of lymphedema drainage. No open areas seen. Data: Labs: 03/10/18 03/11/18 03/13/18 06:28 11:50 05:30 WBC Hgb Hct Plt Count Sodium 150 H Potassium 3.4 L Chloride 109 Carbon Dioxide 37 H BUN 42 H Creatinine 1.04 Glucose 95 Hemoglobin A1c 5.8 H Albumin 2.7 L 03/13/18 05:30 WBC 8.3 Hgb 10.1 L Hct 31 L Plt Count 82 L Sodium Potassium Chloride Carbon Dioxide BUN Creatinine Glucose Hemoglobin A1c Albumin Assessment/Plan: 1. Bilateral LE lymphedema and open wound. Wash legs daily with soap and water. Cover with gauze and/or ABD pads to collect drainage. Change dressing daily and as needed. Left lateral LE wound, apply Santyl daily, gauze, and a rolled gauze. Elevate LEs as tolerated and use SCDs if patient is able to tolerate. 2. Left upper lip ulcer. Suspect this is secondary to a medical claims examiner pressure injury (Patient was previously intubated). Keep the area dry. 3. Redness to skin folds. Skin folds with candidiasis rash. Wash daily with soap and water, thoroughly dry the skin. Apply Nystatin powder. Consider placing a pillow case in the folds to decrease moisture. VTE PPX: No chemical DVT prophylaxis in the setting of thrombocytopenia. Unable to tolerate SCDs. Diet: Consistent Carb Code Status: Full Code Disposition: Inpatient. Disposition per Primary Medicine Team. Time Spent: 25 minutes was spent providing direct patient care, assessing and photographing wounds. Attending: Dr. Judith Swan MD
--- NOTE | 2018-03-13 13:58 | PN ---
Progress Note - Progress Note Date of Service: 03/13/18 Note: Progress Note -- Critical Care 24 hour events/significant events: -no events overnight -extubated yesterday -awake, alert, no cough/sob/fevers -oral sec+ Tele: NSR Vitals: O2/Vent: NC 2 L Infusions: Medications: Physical Exam: General: intubated, now extubated, alert, no distress, no diaphoresis Head: normocephalic, atraumatic HEENT: no pallor, no icterus, moist mucous membranes Neck: soft, supple; no stridor post extubation CVS: normal rate, regular, no murmur Resp: bilateral air entry, mild rhales bibasilar, no acc muscle use Abdomen: soft, nontender, nondistended, bowel sounds present Ext: pulses+, warm, no edema Skin: intact Neuro: awake, alert, moving all extremities Labs: Imaging: cxr 2 - ett above maldonado; mild pulm edema+, similar as prior in basal plata Assessment: 42y M w/pmhx of developmental delay, obesity, DM, Chronic Lymphedema with recurrent cellulitus on chronic PCN suppression; recent admission 02/19, was treated for hypothermia and constipation, but signed AMA. Readmitted for Delirium, hypothermia 81F, bradycardia and shock, intubated for airway protection. Was leukopenic and thrombocytopenic -Acute hypercapneic Respiratory failure, intubated 03/07; ext 03/12 -Suspected Severe sepsis with shock, improved -Bradycardia -Bilateral LE cellulitus -Pulmonary Congestion vs pneumonia, bilateral -Hyperkalemia -SHARON -adrenal insuff suspected, r/o hypothyroidism Chronic LE lymphedema Obesity DM Plan: Neuro- -followed commands -delirium prec, asp prec now -last EEG diffuse slowing -CT brain no acute findings from prior CVS- BP stable; HR 60 NSR. dopamine off. no more bradycardia. -reviewed ENDO note; r/o adrenal and thyroid insuff outpatient, zaynab to cont steroid and levothyroxine even outpatient. will dec levothyroxine to 50mcg daily , change hydrocortisone to prednisone 20mg daily. -IV abx for cellulitus coverage and Pna coverage. -IV d5w for hypernatremia x 1 Liter -CXR with bilateral infiltrates in lower plata, congestion? pneumonia? aspiration? good diuresis with lasix; now hypernatremic, hold lasix Resp- -NC; no distress; mild cough -oral secetions+; cont robinol 0.1mg q12h; wean to once daily and then off if secretions improved -CXR 03/11 with bilateral lower field congestion / infiltrate -sputum culture with Staph aureus+ -IV abx -cont bronchodilators PRN -pulm toilet, asp prec ID- -euthermic. afebrile. wbc 8. BLood cx 03/07 1 set anaerobic staph hemolyticus, 2nd set aerobic corynebacterium+; suspected contaminants. Repeat Blood cx 03/08 both negative. SPutum culture 03/09 with staph aureus+. -CXR with bialteral lower field congestion vs pneumonia -LE B/L lymphedema with breakdown and cellulitic changes+; drainage+ -CTX to 1gm IV daily (day#7); not MRSA; can d/c after today; course complete. -chronic suppression of LE cellulitis? cont PO PCN ? may need ID to eval this for further therapy if required. GI- passed swallow. start diabetic diet, puree with nectar thick liquids. h2b. asp prec. Renal- SHARON noted, multifactorial from bradycardia/shock and low flow state, may be intravasc depleted -Cr improved -hypokalemia, replete KCL PO 2meq x2 days; no acidosis. making urine -hypernatremia; start d5w 75cc/hr x 1 liter -encourage free water po intake -maintain correia, may consider d/c tomorrow; keep K>4, Mg>2 Heme- hg 10s. no bleeding -thrombocytopenia imrpoved; start heparin sq probably tomorrow, still 80s. Heme consulted for possible WOOD? off AC Endo- suspicion for adrenal insuff and myxedema. Change steroids to prednisone po, will need to continue outpatient with workup. Cont synthroid, changed to 50mcg po daily, cont daily. Endo consult reviewed. History of cold exposure may have caused symptoms also. Musculsk- pressure ulcer prophylaxis. oob to chair as tolerated. Wounds- LE lymphedema with cellulitis wounds; wound care local. pressure prevention. Nutrition- diabetic diet, puree with nectar thick; swallow passed DVT prophylaxis: off AC 2/2 to thrombocytopenia; off SCDs due to LE wounds GI prophylaxis: h2b Central Line: yes Arterial Line: no Correia Cathetor: yes Disposition: can downgrade to medical floor Patient clinical status: stable Code Status: full code Perez Najera MD Echocardiograph Tech (Electronically Signed)
[2018-03-13] MEDS ORDERED: D5W 1000 ML BAG* 1,000 ML IV SCH (14:00)
[2018-03-13 16:42] LABS: Human Growth Hormone 0.13 ng/mL
[2018-03-13] MEDS ORDERED: predniSONE TAB* 20 MG PO SCH (21:00)
[2018-03-14] MEDS: Potassium Chlor TAB* 20 MEQ TAB.ER PO SCH ×3 (00:20→21:02)
[2018-03-14] MEDS: Nystatin TOP POWDER* 15 GM BTL TOPICAL SCH ×4 (00:20→20:55)
[2018-03-14] MEDS ORDERED: Enoxaparin(*) 150 MG/ML 1 ML SYRINGE SUBCUT ONE (02:22)
--- NOTE | 2018-03-14 02:24 | PN ---
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 Nurse reports new onset of atrial fibrillation,. reviewed the old EKG and the new EKG, has new onset Atrial fibrillation. Heart rate is controlled, so will not add any rate controlling agent. Thrombocytopenia has been an issue, so not anticoagulation for now. CHADSVASC score would be 0. ECHo done earlier this admission revealed Mild concentric left ventricular hypertrophy, EF of 70%, LA moderately dilated and RV moderately dilated. Will continue to monitor.
[2018-03-14] MEDS: Levothyroxine TAB* 50 MCG TAB PO SCH (06:27)
[2018-03-14] MEDS: Glycopyrrolate IV* 0.2 MG/ML 1 ML VIAL IV SLOW PU SCH (06:27)
[2018-03-14 08:32] LABS: BUN/Creatinine Ratio 47.6 (8-20); Calcium 8.7 mg/dL (8.6-10.3); EGFR African American 120.7 (>60); EGFR Non-African American 99.7 (>60); Magnesium 2.4 mg/dL (1.9-2.7); Potassium 3.5 mmol/L (3.5-5.0)
[2018-03-14] MEDS: COLLAGENASE 250 MG/GM TOPICAL SCH (08:58)
[2018-03-14] MEDS: Senna TAB PO SCH ×2 (08:59→21:02)
[2018-03-14] MEDS ORDERED: Famotidine TAB* 20 MG PO SCH (09:00)
[2018-03-14] MEDS: Polyethylene Glycol 3350* 17 GM PACKET PO SCH ×2 (09:00→20:42)
[2018-03-14] MEDS ORDERED: predniSONE TAB* 20 MG PO SCH (09:00)
[2018-03-14 09:41] LABS: Hematocrit 33 % (42-52); Hemoglobin 10.5 g/dl (14.0-18.0); Mean Corpuscular HGB Conc 32 g/dl (31-36); Mean Corpuscular Hemoglobin 27 pg (27-31); Mean Corpuscular Volume 86 fL (80-94); Mean Platelet Volume 10.5 fL (7.4-10.4); Platelet Count 167 10^3/ul (150-450); Red Blood Count 3.86 10^6/ul (4.00-5.40); Red Cell Distribution Width 18 % (10.5-15); White Blood Count 8.6 10^3/ul (3.5-10.8)
--- NOTE | 2018-03-14 15:35 | PN ---
Subjective Date of Service: 03/14/18 Interval History: No c/o. Objective Active Medications: Bisacodyl (Dulcolax Supp*) 10 mg [place] DAILY PRN PRN Reason: CONSTIPATION Collagenase (Santyl 250 Mg/Gm Oint*) 1 applic TOPICAL DAILY [facility] Last Admin: 03/14/18 08:58 Dose: 1 applic Docusate Sodium (Colace Cap*) 100 mg PO BID PRN PRN Reason: CONSTIPATION Enoxaparin Sodium (Lovenox(*)) 40 mg SUBCUT Q24H [facility] Hydrocortisone (Cortef Tab*) 30 mg PO DAILY [facility] Hydrocortisone (Cortef Tab*) 20 mg PO BEDTIME [facility] Dextrose (D5w 1000 Ml Bag*) 1,000 mls @ 50 mls/hr IV PER RATE [facility] Levothyroxine Sodium (Synthroid Tab*) 50 mcg PO DAILY@0600 [facility] Last Admin: 03/14/18 06:27 Dose: 50 mcg Nystatin (Nystatin Top Powder*) 1 applic TOPICAL TID [facility] Last Admin: 03/14/18 08:59 Dose: 1 applic Polyethylene Glycol/Electrolytes (Miralax*) 17 gm PO BID [facility] Last Admin: 03/14/18 09:00 Dose: 17 gm Potassium Chloride (Klor Con Er Tab*) 20 meq PO BID [facility] Stop: 03/15/18 20:59 Last Admin: 03/14/18 09:00 Dose: 20 meq Senna (Senokot Tab*) 2 tab PO BID [facility] Last Admin: 03/14/18 08:59 Dose: 2 tab Vital Signs - 8 hr 03/14/18 03/14/18 03/14/18 07:47 08:00 10:49 Temperature 97.6 F Pulse Rate 87 Respiratory 16 19 19 Rate Blood Pressure 113/60 (mmHg) O2 Sat by Pulse 100 Oximetry 03/14/18 12:02 Temperature 97.8 F Pulse Rate 74 Respiratory 18 Rate Blood Pressure 110/61 (mmHg) O2 Sat by Pulse 99 Oximetry Oxygen Devices in Use Now: Nasal Cannula Appearance: Alert, partly upp in bed. Neutral affect. Looks comfortable. Eyes: No Scleral Icterus Respiratory: Symmetrical Chest Expansion and Respiratory Effort, Clear to Auscultation, Clear to Percussion Cardiovascular: NL Sounds; No Murmurs; No JVD, RRR, No Edema, - Extremities: No Clubbing, Cyanosis, - - 2+ edema BL Skin: - - Both lower legs cobbled skin, erythema to mid lower legs Neurological: NL Sensation, - - Knows his age, town of residence. No tremor. Result Diagrams: 03/14/18 06:39 03/14/18 06:39 Microbiology and Other Data: Microbiology 03/07/18 11:00 Aerobic Blood Culture - Preliminary Blood Venous No Growth Day 4 Anaerobic Blood Culture - Final Staphylococcus Haemolyticus Blood MRSA/MSSA (PCR) - Final Mrsa Negative S.aureus Negative 03/07/18 11:00 Aerobic Blood Culture - Final Blood Venous Corynebacterium Species Anaerobic Blood Culture - Preliminary No Growth Day 4 Blood MRSA/MSSA (PCR) - Final Mrsa Negative S.aureus Negative 03/08/18 14:28 Aerobic Blood Culture - Preliminary Blood Venous No Growth Day 2 Anaerobic Blood Culture - Preliminary No Growth Day 2 03/08/18 14:20 Aerobic Blood Culture - Preliminary Blood Venous No Growth Day 2 Anaerobic Blood Culture - Preliminary No Growth Day 2 03/09/18 14:15 Gram Stain - Final Sputum 03/07/18 14:52 Nasal Screen MRSA (PCR) - Final Nasal Mrsa Not Detected 03/07/18 13:31 Influenza Types A,B Antigen - Final Nasopharyngeal Specimen received for Influenza A/B Molecular testing Assess/Plan/Problems-Billing Mr. Jaison Lacy presented to alteration in sensorium and was admitted to the ICU for acute respiratory failure. 1. Acute hypoxic and infectious encephalopathy- extubated and is improving. The etiology is most likely infectious or hypoxic related. I don't suspect meningitis or brainstem infarction. 2. Bilateral lower extremity edema and weakness- he denied any back pain. We need to verify his baseline strength in the lower extremity. There was no contact information on his list to check the patient's baseline strength. He will need rehabilitation. Time spent: 25 minutes. I will sign off but please contact us for any questions or concerns, especially if the patient's lower extremity weakness is new (less likely). D/w the ICU team. - Patient Problems (1) Severe sepsis Current Visit: Yes Status: Acute Code(s): A41.9 - SEPSIS, UNSPECIFIED ORGANISM; R65.20 - SEVERE SEPSIS WITHOUT SEPTIC SHOCK SNOMED Code(s): 28602775 Comment: Resolved. May have had pneumonia. Intubated for a period. Nl LVEF , not clear that any cardiac contribution to his illness. (2) Thrombocytopenia Current Visit: Yes Status: Acute Code(s): D69.6 - THROMBOCYTOPENIA, UNSPECIFIED SNOMED Code(s): 537262240 Comment: Resolved, likely due to sepsis. (3) Hypothyroidism Current Visit: Yes Status: Acute Code(s): E03.9 - HYPOTHYROIDISM, UNSPECIFIED SNOMED Code(s): 21183184 Comment: Continue levothyroixine. New dx. (4) Adrenal insufficiency Current Visit: Yes Status: Acute Code(s): E27.40 - UNSPECIFIED ADRENOCORTICAL INSUFFICIENCY SNOMED Code(s): 573946821 Comment: Low cortisol level for his critical illness. Change to bid hyrdocortisone PM 03/14/18. Consider stimulation test later. Consider MRI of pituitary--may need open MRI. Note nl prolactin level. (5) Hypogonadism Current Visit: Yes Status: Acute Code(s): OMT7832 - SNOMED Code(s): 96714770 Comment: Hormone levels could be related to severe hpothermia on admission. Would repeat testosterone in 1 month. (6) Atrial fibrillation Current Visit: Yes Status: Acute Code(s): I48.91 - UNSPECIFIED ATRIAL FIBRILLATION SNOMED Code(s): 43504904 Comment: Good rate without cardiac meds. Low LATASHA-VASC score. (7) Venous stasis ulcer of leg without varicose veins Current Visit: No Status: Acute Code(s): I87.2 - VENOUS INSUFFICIENCY ( CHRONIC) (PERIPHERAL); L97.909 - NON-PRS CHRONIC ULC UNSP PRT OF UNSP LOW LEG W UNSP SEVERITY SNOMED Code(s): 038527627 Comment: Wound care consult appreciated. (8) Morbid obesity Current Visit: Yes Status: Acute Code(s): E66.01 - MORBID (SEVERE) OBESITY DUE TO EXCESS CALORIES SNOMED Code(s): 760222425 Comment: BMI 65.8.
--- NOTE | 2018-03-14 15:54 | PN ---
Subjective Date of Service: 03/14/18 Interval History: SEE EARLIER NOTE TODAY Objective Active Medications: Bisacodyl (Dulcolax Supp*) 10 mg [place] DAILY PRN PRN Reason: CONSTIPATION Collagenase (Santyl 250 Mg/Gm Oint*) 1 applic TOPICAL DAILY [facility] Last Admin: 03/14/18 08:58 Dose: 1 applic Docusate Sodium (Colace Cap*) 100 mg PO BID PRN PRN Reason: CONSTIPATION Enoxaparin Sodium (Lovenox(*)) 40 mg SUBCUT Q24H [facility] Hydrocortisone (Cortef Tab*) 30 mg PO DAILY [facility] Hydrocortisone (Cortef Tab*) 20 mg PO BEDTIME [facility] Dextrose (D5w 1000 Ml Bag*) 1,000 mls @ 50 mls/hr IV PER RATE [facility] Levothyroxine Sodium (Synthroid Tab*) 50 mcg PO DAILY@0600 [facility] Last Admin: 03/14/18 06:27 Dose: 50 mcg Nystatin (Nystatin Top Powder*) 1 applic TOPICAL TID [facility] Last Admin: 03/14/18 15:29 Dose: 1 applic Polyethylene Glycol/Electrolytes (Miralax*) 17 gm PO BID [facility] Last Admin: 03/14/18 09:00 Dose: 17 gm Potassium Chloride (Klor Con Er Tab*) 20 meq PO BID [facility] Stop: 03/15/18 20:59 Last Admin: 03/14/18 09:00 Dose: 20 meq Senna (Senokot Tab*) 2 tab PO BID [facility] Last Admin: 03/14/18 08:59 Dose: 2 tab Vital Signs - 8 hr 03/14/18 03/14/18 03/14/18 08:00 10:49 12:02 Temperature 97.8 F Pulse Rate 74 Respiratory 19 19 18 Rate Blood Pressure 110/61 (mmHg) O2 Sat by Pulse 99 Oximetry 03/14/18 15:16 Temperature 97.4 F Pulse Rate 76 Respiratory 16 Rate Blood Pressure 108/60 (mmHg) O2 Sat by Pulse 100 Oximetry Oxygen Devices in Use Now: Nasal Cannula Result Diagrams: 03/14/18 06:39 03/14/18 06:39 Microbiology and Other Data: Microbiology 03/07/18 11:00 Aerobic Blood Culture - Preliminary Blood Venous No Growth Day 4 Anaerobic Blood Culture - Final Staphylococcus Haemolyticus Blood MRSA/MSSA (PCR) - Final Mrsa Negative S.aureus Negative 03/07/18 11:00 Aerobic Blood Culture - Final Blood Venous Corynebacterium Species Anaerobic Blood Culture - Preliminary No Growth Day 4 Blood MRSA/MSSA (PCR) - Final Mrsa Negative S.aureus Negative 03/08/18 14:28 Aerobic Blood Culture - Preliminary Blood Venous No Growth Day 2 Anaerobic Blood Culture - Preliminary No Growth Day 2 03/08/18 14:20 Aerobic Blood Culture - Preliminary Blood Venous No Growth Day 2 Anaerobic Blood Culture - Preliminary No Growth Day 2 03/09/18 14:15 Gram Stain - Final Sputum 03/07/18 14:52 Nasal Screen MRSA (PCR) - Final Nasal Mrsa Not Detected 03/07/18 13:31 Influenza Types A,B Antigen - Final Nasopharyngeal Specimen received for Influenza A/B Molecular testing Assess/Plan/Problems-Billing Mr. Jaison Lacy presented to alteration in sensorium and was admitted to the ICU for acute respiratory failure. 1. Acute hypoxic and infectious encephalopathy- extubated and is improving. The etiology is most likely infectious or hypoxic related. I don't suspect meningitis or brainstem infarction. 2. Bilateral lower extremity edema and weakness- he denied any back pain. We need to verify his baseline strength in the lower extremity. There was no contact information on his list to check the patient's baseline strength. He will need rehabilitation. Time spent: 25 minutes. I will sign off but please contact us for any questions or concerns, especially if the patient's lower extremity weakness is new (less likely). D/w the ICU team. - Patient Problems (1) Severe sepsis Current Visit: Yes Status: Acute Code(s): A41.9 - SEPSIS, UNSPECIFIED ORGANISM; R65.20 - SEVERE SEPSIS WITHOUT SEPTIC SHOCK SNOMED Code(s): 88301826 Comment: Resolved. May have had pneumonia. Intubated for a period. Nl LVEF , not clear that any cardiac contribution to his illness. (2) Thrombocytopenia Current Visit: Yes Status: Acute Code(s): D69.6 - THROMBOCYTOPENIA, UNSPECIFIED SNOMED Code(s): 917396957 Comment: Resolved, likely due to sepsis. (3) Hypothyroidism Current Visit: Yes Status: Acute Code(s): E03.9 - HYPOTHYROIDISM, UNSPECIFIED SNOMED Code(s): 34690888 Comment: Continue levothyroixine. New dx. (4) Adrenal insufficiency Current Visit: Yes Status: Acute Code(s): E27.40 - UNSPECIFIED ADRENOCORTICAL INSUFFICIENCY SNOMED Code(s): 738121804 Comment: Low cortisol level for his critical illness. Change to bid hyrdocortisone PM 03/14/18. Consider stimulation test later. Consider MRI of pituitary--may need open MRI. Note nl prolactin level. (5) Hypogonadism Current Visit: Yes Status: Acute Code(s): ILG8585 - SNOMED Code(s): 80103125 Comment: Hormone levels could be related to severe hpothermia on admission. Would repeat testosterone in 1 month. (6) Atrial fibrillation Current Visit: Yes Status: Acute Code(s): I48.91 - UNSPECIFIED ATRIAL FIBRILLATION SNOMED Code(s): 40722687 Comment: Good rate without cardiac meds. Low LATASHA-VASC score. (7) Venous stasis ulcer of leg without varicose veins Current Visit: No Status: Acute Code(s): I87.2 - VENOUS INSUFFICIENCY ( CHRONIC) (PERIPHERAL); L97.909 - NON-PRS CHRONIC ULC UNSP PRT OF UNSP LOW LEG W UNSP SEVERITY SNOMED Code(s): 728532891 Comment: Wound care consult appreciated. (8) Morbid obesity Current Visit: Yes Status: Acute Code(s): E66.01 - MORBID (SEVERE) OBESITY DUE TO EXCESS CALORIES SNOMED Code(s): 919139310 Comment: BMI 65.8. (9) Hypernatremia Current Visit: Yes Status: Acute Code(s): E87.0 - HYPEROSMOLALITY AND HYPERNATREMIA SNOMED Code(s): 77563527 Comment: Start D5/W 50 ml/hr PM 03/14, BMP on 03/15. Encourage po (thickened) fluids.
[2018-03-14] MEDS: D5W 1000 ML BAG* 1,000 ML IV SCH (16:06)
[2018-03-14] MEDS: Enoxaparin(*) 40 MG/0.4 ML SYR SUBCUT SCH (16:06)
[2018-03-14] MEDS: Hydrocortisone TAB* 10 MG PO SCH (21:03)
[2018-03-15] MEDS: Levothyroxine TAB* 50 MCG TAB PO SCH (05:50)
[2018-03-15 07:03] LABS: BUN/Creatinine Ratio 41.5 (8-20); Calcium 8.9 mg/dL (8.6-10.3); EGFR African American 124.1 (>60); EGFR Non-African American 102.5 (>60); Magnesium 2.2 mg/dL (1.9-2.7); Potassium 3.8 mmol/L (3.5-5.0)
--- NOTE | 2018-03-15 07:38 | PN ---
Progress Note - Progress Note Date of Service: 03/15/18 Note: Cross cover: Correia no longer flushing Correia removed and plan on post void residual in 4-6 hours Replace correia if deemed still necessary by primary team who will assume coverage in 20 minutes
[2018-03-15 08:09] LABS: Hematocrit 32 % (42-52); Hemoglobin 10.4 g/dl (14.0-18.0); Mean Corpuscular HGB Conc 32 g/dl (31-36); Mean Corpuscular Hemoglobin 28 pg (27-31); Mean Corpuscular Volume 86 fL (80-94); Platelet Count 290 10^3/ul (150-450); Red Blood Count 3.74 10^6/ul (4.00-5.40); Red Cell Distribution Width 17 % (10.5-15); White Blood Count 8.1 10^3/ul (3.5-10.8)
[2018-03-15] MEDS: Hydrocortisone TAB* 10 MG PO SCH ×2 (10:27→21:33)
[2018-03-15] MEDS: Potassium Chlor TAB* 20 MEQ TAB.ER PO SCH (10:27)
[2018-03-15] MEDS: Senna TAB PO SCH ×2 (10:27→21:33)
[2018-03-15] MEDS: Nystatin TOP POWDER* 15 GM BTL TOPICAL SCH ×3 (10:28→21:33)
[2018-03-15] MEDS: Polyethylene Glycol 3350* 17 GM PACKET PO SCH ×2 (11:20→21:33)
[2018-03-15 12:49] LABS: IGF1 Z-score -2.33 SD
[2018-03-15] MEDS: D5W 1000 ML BAG* 1,000 ML IV SCH (13:08)
[2018-03-15 13:12] LABS: Renin 3.7 ng/mL/h
[2018-03-15] MEDS: COLLAGENASE 250 MG/GM TOPICAL SCH (13:26)
--- NOTE | 2018-03-15 15:59 | PN ---
Subjective Date of Service: 03/15/18 Interval History: No c/o. Objective Active Medications: Collagenase (Santyl 250 Mg/Gm Oint*) 1 applic TOPICAL DAILY [facility] Last Admin: 03/15/18 13:26 Dose: 1 applic Enoxaparin Sodium (Lovenox(*)) 40 mg SUBCUT Q24H [facility] Last Admin: 03/14/18 16:06 Dose: 40 mg Hydrocortisone (Cortef Tab*) 30 mg PO DAILY [facility] Last Admin: 03/15/18 10:27 Dose: 30 mg Hydrocortisone (Cortef Tab*) 20 mg PO BEDTIME [facility] Last Admin: 03/14/18 21:03 Dose: 20 mg Dextrose (D5w 1000 Ml Bag*) 1,000 mls @ 50 mls/hr IV PER RATE [facility] Last Admin: 03/15/18 13:08 Dose: 50 mls/hr Levothyroxine Sodium (Synthroid Tab*) 50 mcg PO DAILY@0600 [facility] Last Admin: 03/15/18 05:50 Dose: 50 mcg Nystatin (Nystatin Top Powder*) 1 applic TOPICAL TID [facility] Last Admin: 03/15/18 13:26 Dose: 1 applic Polyethylene Glycol/Electrolytes (Miralax*) 17 gm PO BID [facility] Last Admin: 03/15/18 11:20 Dose: Not Given Senna (Senokot Tab*) 2 tab PO BID [facility] Last Admin: 03/15/18 10:27 Dose: 2 tab Vital Signs - 8 hr 03/15/18 03/15/18 03/15/18 07:59 08:00 11:15 Temperature 97.1 F Pulse Rate 82 92 Respiratory 16 16 20 Rate Blood Pressure 122/77 116/66 (mmHg) O2 Sat by Pulse 100 100 Oximetry Oxygen Devices in Use Now: Nasal Cannula Appearance: Alert, partly up in bed. Neutral affect, looks comfortable. Eyes: No Scleral Icterus Skin: - - black eschar on upper lip unchanged. Both lower legs cobble-stone appearance, somewhat red, ulcer L loer leg OK. Neurological: Alert and Oriented x 3, NL Sensation Result Diagrams: 03/15/18 06:25 03/15/18 06:25 Microbiology and Other Data: Microbiology 03/07/18 11:00 Aerobic Blood Culture - Preliminary Blood Venous No Growth Day 4 Anaerobic Blood Culture - Final Staphylococcus Haemolyticus Blood MRSA/MSSA (PCR) - Final Mrsa Negative S.aureus Negative 03/07/18 11:00 Aerobic Blood Culture - Final Blood Venous Corynebacterium Species Anaerobic Blood Culture - Preliminary No Growth Day 4 Blood MRSA/MSSA (PCR) - Final Mrsa Negative S.aureus Negative 03/08/18 14:28 Aerobic Blood Culture - Preliminary Blood Venous No Growth Day 2 Anaerobic Blood Culture - Preliminary No Growth Day 2 03/08/18 14:20 Aerobic Blood Culture - Preliminary Blood Venous No Growth Day 2 Anaerobic Blood Culture - Preliminary No Growth Day 2 03/09/18 14:15 Gram Stain - Final Sputum 03/07/18 14:52 Nasal Screen MRSA (PCR) - Final Nasal Mrsa Not Detected 03/07/18 13:31 Influenza Types A,B Antigen - Final Nasopharyngeal Specimen received for Influenza A/B Molecular testing Assess/Plan/Problems-Billing Mr. Jaison Lacy presented to alteration in sensorium and was admitted to the ICU for acute respiratory failure. 1. Acute hypoxic and infectious encephalopathy- extubated and is improving. The etiology is most likely infectious or hypoxic related. I don't suspect meningitis or brainstem infarction. 2. Bilateral lower extremity edema and weakness- he denied any back pain. We need to verify his baseline strength in the lower extremity. There was no contact information on his list to check the patient's baseline strength. He will need rehabilitation. Time spent: 25 minutes. I will sign off but please contact us for any questions or concerns, especially if the patient's lower extremity weakness is new (less likely). D/w the ICU team. - Patient Problems (1) Severe sepsis Current Visit: Yes Status: Acute Code(s): A41.9 - SEPSIS, UNSPECIFIED ORGANISM; R65.20 - SEVERE SEPSIS WITHOUT SEPTIC SHOCK SNOMED Code(s): 93480813 Comment: Resolved. May have had pneumonia. Intubated for a period. Nl LVEF , not clear that any cardiac contribution to his illness. (2) Thrombocytopenia Current Visit: Yes Status: Acute Code(s): D69.6 - THROMBOCYTOPENIA, UNSPECIFIED SNOMED Code(s): 218252992 Comment: Resolved, likely due to sepsis. (3) Hypothyroidism Current Visit: Yes Status: Acute Code(s): E03.9 - HYPOTHYROIDISM, UNSPECIFIED SNOMED Code(s): 10860613 Comment: Continue levothyroixine. New dx. (4) Adrenal insufficiency Current Visit: Yes Status: Acute Code(s): E27.40 - UNSPECIFIED ADRENOCORTICAL INSUFFICIENCY SNOMED Code(s): 123588703 Comment: Low cortisol level for his critical illness. Change to bid hyrdocortisone PM 03/14/18. Consider stimulation test later. Consider MRI of pituitary--may need open MRI. Note nl prolactin level. (5) Hypogonadism Current Visit: Yes Status: Acute Code(s): SYO4249 - SNOMED Code(s): 12924175 Comment: Hormone levels could be related to severe hpothermia on admission. Would repeat testosterone in 1 month. (6) Atrial fibrillation Current Visit: Yes Status: Acute Code(s): I48.91 - UNSPECIFIED ATRIAL FIBRILLATION SNOMED Code(s): 49190498 Comment: Good rate without cardiac meds. Low LATASHA-VASC score. Stop tele 03/15. (7) Venous stasis ulcer of leg without varicose veins Current Visit: No Status: Acute Code(s): I87.2 - VENOUS INSUFFICIENCY ( CHRONIC) (PERIPHERAL); L97.909 - NON-PRS CHRONIC ULC UNSP PRT OF UNSP LOW LEG W UNSP SEVERITY SNOMED Code(s): 823422442 Comment: Wound care consult appreciated. (8) Morbid obesity Current Visit: Yes Status: Acute Code(s): E66.01 - MORBID (SEVERE) OBESITY DUE TO EXCESS CALORIES SNOMED Code(s): 211296547 Comment: BMI 65.8. (9) Hypernatremia Current Visit: Yes Status: Acute Code(s): E87.0 - HYPEROSMOLALITY AND HYPERNATREMIA SNOMED Code(s): 92085059 Comment: Continue D5/W 50 ml/hr. Good po intact since he passed swallow re- eval and can have thin liuids. D/C IV fluids when serum Na+ is nl, would check 03/17. (10) Urinary retention Current Visit: Yes Status: Acute Code(s): R33.9 - RETENTION OF URINE, UNSPECIFIED SNOMED Code(s): 901128135 Comment: Navarro re-inserted 03/15, 800 ml immediately drained.
[2018-03-15] MEDS: Enoxaparin(*) 40 MG/0.4 ML SYR SUBCUT SCH (16:42)
[2018-03-16 05:19] LABS: Hematocrit 32 % (42-52); Hemoglobin 10.3 g/dl (14.0-18.0); Mean Corpuscular HGB Conc 33 g/dl (31-36); Mean Corpuscular Hemoglobin 28 pg (27-31); Mean Corpuscular Volume 86 fL (80-94); Mean Platelet Volume 8.7 fL (7.4-10.4); Platelet Count 371 10^3/ul (150-450); Red Blood Count 3.69 10^6/ul (4.00-5.40); Red Cell Distribution Width 17 % (10.5-15); White Blood Count 7.7 10^3/ul (3.5-10.8)
[2018-03-16 05:37] LABS: BUN/Creatinine Ratio 41.7 (8-20); Calcium 8.7 mg/dL (8.6-10.3); EGFR African American 144.2 (>60); EGFR Non-African American 119.1 (>60); Magnesium 1.9 mg/dL (1.9-2.7); Potassium 4.2 mmol/L (3.5-5.0)
[2018-03-16] MEDS: Levothyroxine TAB* 50 MCG TAB PO SCH (05:53)
[2018-03-16] MEDS: COLLAGENASE 250 MG/GM TOPICAL SCH (10:30)
[2018-03-16] MEDS: Nystatin TOP POWDER* 15 GM BTL TOPICAL SCH ×3 (10:31→20:11)
[2018-03-16] MEDS: Hydrocortisone TAB* 10 MG PO SCH ×2 (10:31→20:10)
[2018-03-16] MEDS: Senna TAB PO SCH ×2 (10:31→20:11)
[2018-03-16] MEDS: Polyethylene Glycol 3350* 17 GM PACKET PO SCH ×2 (10:31→20:11)
[2018-03-16] MEDS: D5W 1000 ML BAG* 1,000 ML IV SCH (10:34)
--- NOTE | 2018-03-16 15:33 | PN ---
Subjective Date of Service: 03/16/18 Interval History: Pt seen and examined. Meds and labs reviewed. CC: N/A ROS: Denied VIVEROS/dizziness, F/C, N/V, CP, SOB, increased cough, sputum production , abd pain, diarrhea, constipation, dysuria, myalgias, arthralgias, throat pain , and new skin lesions. The rest of the 14 point ROS are unremarkable. PHYSICAL EXAM: GEN APPEARANCE: Awake, not in acute distress, not oriented to place, obese HEENT: NC/AT, PERRLA, moist oral mucosa, (-) throat erythema NECK: Soft, supple, (-) cervical LAD HEART: S1S2 WNL, RRR, No MRG CHEST: CTA, BL, GAE, No W/R/R ABD: Soft, ND/NT, NABS 4x Q EXT: No C/C/(+)BLLE edema 2+ SKIN: Warm to touch PSYCH: No active psychosis, hallucinations, depression, SI/HI Objective Active Medications: Collagenase (Santyl 250 Mg/Gm Oint*) 1 applic TOPICAL DAILY [facility] Last Admin: 03/16/18 10:30 Dose: 1 applic Enoxaparin Sodium (Lovenox(*)) 40 mg SUBCUT Q24H [facility] Last Admin: 03/15/18 16:42 Dose: 40 mg Hydrocortisone (Cortef Tab*) 30 mg PO DAILY [facility] Last Admin: 03/16/18 10:31 Dose: 30 mg Hydrocortisone (Cortef Tab*) 20 mg PO BEDTIME [facility] Last Admin: 03/15/18 21:33 Dose: 20 mg Dextrose (D5w 1000 Ml Bag*) 1,000 mls @ 50 mls/hr IV PER RATE [facility] Last Admin: 03/16/18 10:34 Dose: 50 mls/hr Levothyroxine Sodium (Synthroid Tab*) 50 mcg PO DAILY@0600 [facility] Last Admin: 03/16/18 05:53 Dose: 50 mcg Nystatin (Nystatin Top Powder*) 1 applic TOPICAL TID [facility] Last Admin: 03/16/18 13:46 Dose: 1 applic Polyethylene Glycol/Electrolytes (Miralax*) 17 gm PO BID [facility] Last Admin: 03/16/18 10:31 Dose: 17 gm Senna (Senokot Tab*) 2 tab PO BID [facility] Last Admin: 03/16/18 10:31 Dose: 2 tab Vital Signs - 8 hr 03/16/18 08:00 Respiratory 14 Rate Oxygen Devices in Use Now: Nasal Cannula Result Diagrams: 03/16/18 05:09 03/16/18 05:09 Microbiology and Other Data: Microbiology 03/07/18 11:00 Aerobic Blood Culture - Preliminary Blood Venous No Growth Day 4 Anaerobic Blood Culture - Final Staphylococcus Haemolyticus Blood MRSA/MSSA (PCR) - Final Mrsa Negative S.aureus Negative 03/07/18 11:00 Aerobic Blood Culture - Final Blood Venous Corynebacterium Species Anaerobic Blood Culture - Preliminary No Growth Day 4 Blood MRSA/MSSA (PCR) - Final Mrsa Negative S.aureus Negative 03/08/18 14:28 Aerobic Blood Culture - Preliminary Blood Venous No Growth Day 2 Anaerobic Blood Culture - Preliminary No Growth Day 2 03/08/18 14:20 Aerobic Blood Culture - Preliminary Blood Venous No Growth Day 2 Anaerobic Blood Culture - Preliminary No Growth Day 2 03/09/18 14:15 Gram Stain - Final Sputum 03/07/18 14:52 Nasal Screen MRSA (PCR) - Final Nasal Mrsa Not Detected 03/07/18 13:31 Influenza Types A,B Antigen - Final Nasopharyngeal Specimen received for Influenza A/B Molecular testing Assess/Plan/Problems-Billing Mr. Jaison Lacy presented to alteration in sensorium and was admitted to the ICU for acute respiratory failure. 1. Acute hypoxic and infectious encephalopathy- extubated and is improving. The etiology is most likely infectious or hypoxic related. I don't suspect meningitis or brainstem infarction. 2. Bilateral lower extremity edema and weakness- he denied any back pain. We need to verify his baseline strength in the lower extremity. There was no contact information on his list to check the patient's baseline strength. He will need rehabilitation. Time spent: 25 minutes. I will sign off but please contact us for any questions or concerns, especially if the patient's lower extremity weakness is new (less likely). D/w the ICU team. - Patient Problems (1) Pneumonia Current Visit: Yes Status: Acute Code(s): J18.9 - PNEUMONIA, UNSPECIFIED ORGANISM SNOMED Code(s): 660386300 Comment: -Severe sepsis resolved -No longer on Abx (2) Adrenal insufficiency Current Visit: Yes Status: Acute Code(s): E27.40 - UNSPECIFIED ADRENOCORTICAL INSUFFICIENCY SNOMED Code(s): 149586807 Comment: -Likely due to above -Continue Hydrocortisone -Consider Cosyntropin test prior to repeat head imaging? -On further review of pts home meds, it does not appear he was on synthroid until his TSH was found to be elevated and can at times lead to abnormal cosyntropin test; hypothyroidism in addition to sepsis would likely make the effects of AI more pronounced (3) Hypothyroidism Current Visit: Yes Status: Acute Code(s): E03.9 - HYPOTHYROIDISM, UNSPECIFIED SNOMED Code(s): 25601464 Comment: -As above -Continue Levothyroxine (4) DVT prophylaxis Current Visit: No Status: Acute Code(s): JGP1742 - SNOMED Code(s): 513920731 Comment: -Continue Lovenox Status and Disposition: -Pt mentions he lives in a trailer home and has no family/friends/next of kin that lives in the area. Also mentions he knows he has F/U appointments with his doctors in [place] but unable to go due to lack of resources for travel/car -Pending placement
[2018-03-16] MEDS: Enoxaparin(*) 40 MG/0.4 ML SYR SUBCUT SCH (16:11)
[2018-03-17] MEDS: D5W 1000 ML BAG* 1,000 ML IV SCH (05:44)
[2018-03-17] MEDS: Levothyroxine TAB* 50 MCG TAB PO SCH (05:46)
[2018-03-17 07:30] LABS: Hematocrit 30 % (42-52); Hemoglobin 9.7 g/dl (14.0-18.0); Mean Corpuscular HGB Conc 32 g/dl (31-36); Mean Corpuscular Hemoglobin 28 pg (27-31); Mean Corpuscular Volume 86 fL (80-94); Mean Platelet Volume 8.8 fL (7.4-10.4); Platelet Count 372 10^3/ul (150-450); Red Cell Distribution Width 18 % (10.5-15); White Blood Count 8.4 10^3/ul (3.5-10.8)
[2018-03-17 07:45] LABS: Albumin 2.7 g/dL (3.2-5.2); Albumin/Globulin Ratio 0.8 (1-3); BUN/Creatinine Ratio 40.3 (8-20); Calcium 8.8 mg/dL (8.6-10.3); EGFR African American 171.3 (>60); EGFR Non-African American 141.6 (>60); Globulin 3.2 g/dL (2-4); Magnesium 1.5 mg/dL (1.9-2.7); Phosphorus 3.3 mg/dL (2.5-5.0); Potassium 3.9 mmol/L (3.5-5.0); Total Bilirubin 0.6 mg/dL (0.2-1.0); Total Protein 5.9 g/dL (6.4-8.9)
[2018-03-17 08:01] LABS: ABS Basophils 0.1 10^3/ul (0-0.2); ABS Eosinophils 0.6 10^3/ul (0-0.6); ABS Lymphocytes 1.4 10^3/ul (1.0-4.8); ABS Monocytes 1.1 10^3/ul (0-0.8); ABS Neutrophils 5.1 10^3/ul (1.5-7.7); ABS Nucleated RBC 0 10^3/ul; Nucleated Red Blood Cells % 0.1
[2018-03-17 08:37] LABS: Eosinophil % 7.7 %; Lymphocyte % 17.3 %
[2018-03-17] MEDS ORDERED: Magnesium Sulfate IV* 3 GM in NS 0.9% 100 ML* 100 ML IVPB ONE (10:30)
[2018-03-17] MEDS: Senna TAB PO SCH ×2 (11:18→22:09)
[2018-03-17] MEDS: COLLAGENASE 250 MG/GM TOPICAL SCH (11:18)
[2018-03-17] MEDS: Polyethylene Glycol 3350* 17 GM PACKET PO SCH ×2 (11:18→22:10)
[2018-03-17] MEDS: Hydrocortisone TAB* 10 MG PO SCH ×2 (11:18→22:09)
[2018-03-17] MEDS: Nystatin TOP POWDER* 15 GM BTL TOPICAL SCH ×3 (11:18→22:06)
--- NOTE | 2018-03-17 16:08 | PN ---
Subjective Date of Service: 03/17/18 Interval History: Pt seen and examined. Meds and labs reviewed. CC: N/A ROS: Denied VIVEROS/dizziness, F/C, N/V, CP, SOB, increased cough, sputum production , abd pain, diarrhea, constipation, dysuria, myalgias, arthralgias, throat pain , and new skin lesions. The rest of the 14 point ROS are unremarkable. PHYSICAL EXAM: GEN APPEARANCE: Awake, not in acute distress, not oriented to place, obese HEENT: NC/AT, PERRLA, moist oral mucosa, (-) throat erythema NECK: Soft, supple, (-) cervical LAD HEART: S1S2 WNL, RRR, No MRG CHEST: CTA, BL, GAE, No W/R/R ABD: Soft, ND/NT, NABS 4x Q EXT: No C/C/(+)BLLE edema 2+ SKIN: Warm to touch PSYCH: No active psychosis, hallucinations, depression, SI/HI Objective Active Medications: Collagenase (Santyl 250 Mg/Gm Oint*) 1 applic TOPICAL DAILY [facility] Last Admin: 03/17/18 11:18 Dose: 1 applic Enoxaparin Sodium (Lovenox(*)) 40 mg SUBCUT Q24H [facility] Last Admin: 03/16/18 16:11 Dose: 40 mg Hydrocortisone (Cortef Tab*) 30 mg PO DAILY [facility] Last Admin: 03/17/18 11:18 Dose: 30 mg Hydrocortisone (Cortef Tab*) 20 mg PO BEDTIME [facility] Last Admin: 03/16/18 20:10 Dose: 20 mg Dextrose (D5w 1000 Ml Bag*) 1,000 mls @ 50 mls/hr IV PER RATE [facility] Last Admin: 03/17/18 05:44 Dose: 50 mls/hr Levothyroxine Sodium (Synthroid Tab*) 50 mcg PO DAILY@0600 [facility] Last Admin: 03/17/18 05:46 Dose: 50 mcg Nystatin (Nystatin Top Powder*) 1 applic TOPICAL TID [facility] Last Admin: 03/17/18 16:00 Dose: Not Given Polyethylene Glycol/Electrolytes (Miralax*) 17 gm PO BID [facility] Last Admin: 03/17/18 11:18 Dose: 17 gm Senna (Senokot Tab*) 2 tab PO BID [facility] Last Admin: 03/17/18 11:18 Dose: 2 tab Torsemide (Demadex*) 20 mg PO DAILY [facility] Vital Signs - 8 hr 03/17/18 08:22 Temperature 98.0 F Pulse Rate 94 Respiratory 20 Rate Blood Pressure 114/56 (mmHg) O2 Sat by Pulse 93 Oximetry Oxygen Devices in Use Now: Nasal Cannula Result Diagrams: 03/17/18 07:04 03/17/18 07:04 Microbiology and Other Data: Microbiology 03/07/18 11:00 Aerobic Blood Culture - Preliminary Blood Venous No Growth Day 4 Anaerobic Blood Culture - Final Staphylococcus Haemolyticus Blood MRSA/MSSA (PCR) - Final Mrsa Negative S.aureus Negative 03/07/18 11:00 Aerobic Blood Culture - Final Blood Venous Corynebacterium Species Anaerobic Blood Culture - Preliminary No Growth Day 4 Blood MRSA/MSSA (PCR) - Final Mrsa Negative S.aureus Negative 03/08/18 14:28 Aerobic Blood Culture - Preliminary Blood Venous No Growth Day 2 Anaerobic Blood Culture - Preliminary No Growth Day 2 03/08/18 14:20 Aerobic Blood Culture - Preliminary Blood Venous No Growth Day 2 Anaerobic Blood Culture - Preliminary No Growth Day 2 03/09/18 14:15 Gram Stain - Final Sputum 03/07/18 14:52 Nasal Screen MRSA (PCR) - Final Nasal Mrsa Not Detected 03/07/18 13:31 Influenza Types A,B Antigen - Final Nasopharyngeal Specimen received for Influenza A/B Molecular testing Assess/Plan/Problems-Billing Mr. Jaison Lacy presented to alteration in sensorium and was admitted to the ICU for acute respiratory failure. 1. Acute hypoxic and infectious encephalopathy- extubated and is improving. The etiology is most likely infectious or hypoxic related. I don't suspect meningitis or brainstem infarction. 2. Bilateral lower extremity edema and weakness- he denied any back pain. We need to verify his baseline strength in the lower extremity. There was no contact information on his list to check the patient's baseline strength. He will need rehabilitation. Time spent: 25 minutes. I will sign off but please contact us for any questions or concerns, especially if the patient's lower extremity weakness is new (less likely). D/w the ICU team. - Patient Problems (1) Hypomagnesemia Current Visit: Yes Status: Acute Code(s): E83.42 - HYPOMAGNESEMIA SNOMED Code(s): 320863873 Comment: -Repleted -Continue watchful waiting (2) Bilateral lower extremity edema Current Visit: Yes Status: Acute Code(s): R60.0 - LOCALIZED EDEMA SNOMED Code(s): 335827528 Comment: -Likely due to lymphedema given pt does not complain of SOB and no significat effusion seen on last CXR -Unfortunately pt is severely obese, I cannot appreciate JVD measurements nor does it become prominent w/Hepato-jugular reflux maneuver -Will place pt on low dose PO Torsemide -Will order doppler U/S to R/O DVT given pt has poor mobility and at high risk (3) Pneumonia Current Visit: Yes Status: Acute Code(s): J18.9 - PNEUMONIA, UNSPECIFIED ORGANISM SNOMED Code(s): 331187471 Comment: -Severe sepsis resolved -No longer on Abx and completed course (4) Adrenal insufficiency Current Visit: Yes Status: Acute Code(s): E27.40 - UNSPECIFIED ADRENOCORTICAL INSUFFICIENCY SNOMED Code(s): 119386424 Comment: -Likely due to above -Continue Hydrocortisone -On further review of pts home meds, it does not appear he was on synthroid until his TSH was found to be elevated and can at times lead to abnormal cosyntropin test; hypothyroidism in addition to sepsis would likely make the effects of AI more pronounced (5) Hypothyroidism Current Visit: Yes Status: Acute Code(s): E03.9 - HYPOTHYROIDISM, UNSPECIFIED SNOMED Code(s): 90659567 Comment: -As above -Continue Levothyroxine (6) DVT prophylaxis Current Visit: No Status: Acute Code(s): OWV6410 - SNOMED Code(s): 690596665 Comment: -Continue Lovenox Status and Disposition: -Pt mentions he lives in a trailer home and has no family/friends/next of kin that lives in the area. Also mentions he knows he has F/U appointments with his doctors in [place] but unable to go due to lack of resources for travel/car -Pending placement
[2018-03-17] MEDS: Enoxaparin(*) 40 MG/0.4 ML SYR SUBCUT SCH (16:20)
[2018-03-17] MEDS: Torsemide TAB* 20 MG PO SCH (16:21)
[2018-03-18] MEDS: D5W 1000 ML BAG* 1,000 ML IV SCH (06:32)
[2018-03-18] MEDS: Levothyroxine TAB* 50 MCG TAB PO SCH (06:36)
[2018-03-18 06:44] LABS: Hematocrit 30 % (42-52); Hemoglobin 9.8 g/dl (14.0-18.0); Mean Corpuscular HGB Conc 33 g/dl (31-36); Mean Corpuscular Hemoglobin 28 pg (27-31); Mean Corpuscular Volume 85 fL (80-94); Mean Platelet Volume 8.5 fL (7.4-10.4); Platelet Count 413 10^3/ul (150-450); Red Blood Count 3.53 10^6/ul (4.00-5.40); Red Cell Distribution Width 18 % (10.5-15); White Blood Count 9.8 10^3/ul (3.5-10.8)
[2018-03-18 06:59] LABS: BUN/Creatinine Ratio 37.3 (8-20); Calcium 8.7 mg/dL (8.6-10.3); EGFR African American 137.5 (>60); EGFR Non-African American 113.7 (>60); Magnesium 1.5 mg/dL (1.9-2.7); Potassium 3.8 mmol/L (3.5-5.0)
[2018-03-18] MEDS: Hydrocortisone TAB* 10 MG PO SCH ×2 (09:17→20:15)
[2018-03-18] MEDS: Senna TAB PO SCH ×2 (09:17→20:14)
[2018-03-18] MEDS: Torsemide TAB* 20 MG PO SCH (09:17)
[2018-03-18] MEDS: Polyethylene Glycol 3350* 17 GM PACKET PO SCH ×2 (09:17→20:15)
[2018-03-18] MEDS ORDERED: Magnesium Sulf 4 GM/100 ML IV* 4,000 MG/100 ML BAG IVPB ONE (10:18)
[2018-03-18] MEDS: Nystatin TOP POWDER* 15 GM BTL TOPICAL SCH ×3 (13:11→20:16)
[2018-03-18] MEDS: COLLAGENASE 250 MG/GM TOPICAL SCH (13:52)
[2018-03-18] MEDS: Enoxaparin(*) 40 MG/0.4 ML SYR SUBCUT SCH (16:13)
--- NOTE | 2018-03-18 17:32 | PN ---
Subjective Date of Service: 03/18/18 Interval History: Pt seen and examined. Meds and labs reviewed. CC: N/A ROS: Denied VIVEROS/dizziness, F/C, N/V, CP, SOB, increased cough, sputum production , abd pain, diarrhea, constipation, dysuria, myalgias, arthralgias, throat pain , and new skin lesions. The rest of the 14 point ROS are unremarkable. PHYSICAL EXAM: GEN APPEARANCE: Awake, not in acute distress, not oriented to place, obese HEENT: NC/AT, PERRLA, moist oral mucosa, (-) throat erythema NECK: Soft, supple, (-) cervical LAD HEART: S1S2 WNL, RRR, No MRG CHEST: CTA, BL, GAE, No W/R/R ABD: Soft, ND/NT, NABS 4x Q EXT: No C/C/(+)BLLE edema 2-3+ SKIN: Warm to touch PSYCH: No active psychosis, hallucinations, depression, SI/HI Objective Active Medications: Collagenase (Santyl 250 Mg/Gm Oint*) 1 applic TOPICAL DAILY [facility] Last Admin: 03/18/18 13:52 Dose: 1 applic Enoxaparin Sodium (Lovenox(*)) 40 mg SUBCUT Q24H [facility] Last Admin: 03/18/18 16:13 Dose: 40 mg Hydrocortisone (Cortef Tab*) 30 mg PO DAILY [facility] Last Admin: 03/18/18 09:17 Dose: 30 mg Hydrocortisone (Cortef Tab*) 20 mg PO BEDTIME [facility] Last Admin: 03/17/18 22:09 Dose: 20 mg Levothyroxine Sodium (Synthroid Tab*) 50 mcg PO DAILY@0600 [facility] Last Admin: 03/18/18 06:36 Dose: 50 mcg Nystatin (Nystatin Top Powder*) 1 applic TOPICAL TID [facility] Last Admin: 03/18/18 13:51 Dose: 1 applic Polyethylene Glycol/Electrolytes (Miralax*) 17 gm PO BID [facility] Last Admin: 03/18/18 09:17 Dose: 17 gm Senna (Senokot Tab*) 2 tab PO BID [facility] Last Admin: 03/18/18 09:17 Dose: 2 tab Torsemide (Demadex*) 20 mg PO DAILY [facility] Last Admin: 03/18/18 09:17 Dose: 20 mg Vital Signs - 8 hr 03/18/18 12:00 Temperature 97.4 F Pulse Rate 93 Respiratory 22 Rate Blood Pressure 117/59 (mmHg) O2 Sat by Pulse 96 Oximetry Oxygen Devices in Use Now: None Result Diagrams: 03/18/18 06:20 03/18/18 06:20 Microbiology and Other Data: Microbiology 03/07/18 11:00 Aerobic Blood Culture - Preliminary Blood Venous No Growth Day 4 Anaerobic Blood Culture - Final Staphylococcus Haemolyticus Blood MRSA/MSSA (PCR) - Final Mrsa Negative S.aureus Negative 03/07/18 11:00 Aerobic Blood Culture - Final Blood Venous Corynebacterium Species Anaerobic Blood Culture - Preliminary No Growth Day 4 Blood MRSA/MSSA (PCR) - Final Mrsa Negative S.aureus Negative 03/08/18 14:28 Aerobic Blood Culture - Preliminary Blood Venous No Growth Day 2 Anaerobic Blood Culture - Preliminary No Growth Day 2 03/08/18 14:20 Aerobic Blood Culture - Preliminary Blood Venous No Growth Day 2 Anaerobic Blood Culture - Preliminary No Growth Day 2 03/09/18 14:15 Gram Stain - Final Sputum 03/07/18 14:52 Nasal Screen MRSA (PCR) - Final Nasal Mrsa Not Detected 03/07/18 13:31 Influenza Types A,B Antigen - Final Nasopharyngeal Specimen received for Influenza A/B Molecular testing Assess/Plan/Problems-Billing Mr. Jaison Lacy presented to alteration in sensorium and was admitted to the ICU for acute respiratory failure. 1. Acute hypoxic and infectious encephalopathy- extubated and is improving. The etiology is most likely infectious or hypoxic related. I don't suspect meningitis or brainstem infarction. 2. Bilateral lower extremity edema and weakness- he denied any back pain. We need to verify his baseline strength in the lower extremity. There was no contact information on his list to check the patient's baseline strength. He will need rehabilitation. Time spent: 25 minutes. I will sign off but please contact us for any questions or concerns, especially if the patient's lower extremity weakness is new (less likely). D/w the ICU team. - Patient Problems (1) Hypomagnesemia Current Visit: Yes Status: Acute Code(s): E83.42 - HYPOMAGNESEMIA SNOMED Code(s): 673638346 Comment: -Repleted -Continue watchful waiting -If still low or mildly low in AM, will likely need maintenance due to Torsemide for lymphedema (2) Bilateral lower extremity edema Current Visit: Yes Status: Acute Code(s): R60.0 - LOCALIZED EDEMA SNOMED Code(s): 538833852 Comment: -Likely due to lymphedema given pt does not complain of SOB and no significat effusion seen on last CXR -Unfortunately pt is severely obese, I cannot appreciate JVD measurements nor does it become prominent w/Hepato-jugular reflux maneuver -Continue PO Torsemide -Doppler U/S (-) DVT, however, w/ partially thrombosed Right calf varicose veinsordered elevation and warm compress (3) Pneumonia Current Visit: Yes Status: Acute Code(s): J18.9 - PNEUMONIA, UNSPECIFIED ORGANISM SNOMED Code(s): 805987394 Comment: -Severe sepsis resolved -No longer on Abx and completed course (4) Adrenal insufficiency Current Visit: Yes Status: Acute Code(s): E27.40 - UNSPECIFIED ADRENOCORTICAL INSUFFICIENCY SNOMED Code(s): 452529542 Comment: -Likely due to above -Continue Hydrocortisone -On further review of pts home meds, it does not appear he was on synthroid until his TSH was found to be elevated and can at times lead to abnormal cosyntropin test; hypothyroidism in addition to sepsis would likely make the effects of AI more pronounced (5) Hypothyroidism Current Visit: Yes Status: Acute Code(s): E03.9 - HYPOTHYROIDISM, UNSPECIFIED SNOMED Code(s): 93541928 Comment: -As above -Continue Levothyroxine (6) DVT prophylaxis Current Visit: No Status: Acute Code(s): MPD6127 - SNOMED Code(s): 166945638 Comment: -Continue Lovenox Status and Disposition: -Pt mentions he lives in a trailer home and has no family/friends/next of kin that lives in the area. Also mentions he knows he has F/U appointments with his doctors in [place] but unable to go due to lack of resources for travel/car -Pending placement
[2018-03-19 06:01] LABS: Hematocrit 31 % (42-52); Mean Corpuscular HGB Conc 32 g/dl (31-36); Mean Corpuscular Hemoglobin 28 pg (27-31); Mean Corpuscular Volume 85 fL (80-94); Mean Platelet Volume 8.3 fL (7.4-10.4); Platelet Count 415 10^3/ul (150-450); Red Blood Count 3.62 10^6/ul (4.00-5.40); Red Cell Distribution Width 17 % (10.5-15)
[2018-03-19] MEDS: Levothyroxine TAB* 50 MCG TAB PO SCH (06:14)
[2018-03-19 06:16] LABS: BUN/Creatinine Ratio 33.8 (8-20); Calcium 8.8 mg/dL (8.6-10.3); EGFR African American 133.4 (>60); EGFR Non-African American 110.3 (>60); Magnesium 1.7 mg/dL (1.9-2.7); Potassium 3.6 mmol/L (3.5-5.0)
--- NOTE | 2018-03-19 10:12 | PN ---
Subjective Date of Service: 03/19/18 Interval History: No c/o. Appetite OK. Objective Active Medications: Collagenase (Santyl 250 Mg/Gm Oint*) 1 applic TOPICAL DAILY [facility] Last Admin: 03/18/18 13:52 Dose: 1 applic Enoxaparin Sodium (Lovenox(*)) 40 mg SUBCUT Q24H [facility] Last Admin: 03/18/18 16:13 Dose: 40 mg Hydrocortisone (Cortef Tab*) 20 mg PO DAILY [facility] Hydrocortisone (Cortef Tab*) 10 mg PO BEDTIME [facility] Levothyroxine Sodium (Synthroid Tab*) 50 mcg PO DAILY@0600 [facility] Last Admin: 03/19/18 06:14 Dose: 50 mcg Magnesium Oxide (Magox 400 Tab*) 400 mg PO BID [facility] Nystatin (Nystatin Top Powder*) 1 applic TOPICAL TID [facility] Last Admin: 03/18/18 20:16 Dose: 1 applic Polyethylene Glycol/Electrolytes (Miralax*) 17 gm PO BID [facility] Last Admin: 03/18/18 20:15 Dose: 17 gm Senna (Senokot Tab*) 2 tab PO BID [facility] Last Admin: 03/18/18 20:14 Dose: 2 tab Torsemide (Demadex*) 20 mg PO DAILY [facility] Last Admin: 03/18/18 09:17 Dose: 20 mg Oxygen Devices in Use Now: None Appearance: Alert, in a chair. In good spirits. Looks comfortable. Eyes: No Scleral Icterus Ears/Nose/Mouth/Throat: Clear Oropharnyx Neck: NL Appearance and Movements; NL JVP, No Thyroid Enlargement, Masses Respiratory: Symmetrical Chest Expansion and Respiratory Effort, Clear to Auscultation, Clear to Percussion Cardiovascular: NL Sounds; No Murmurs; No JVD, RRR, No Edema, - Abdominal: NL Sounds; No Tenderness; No Distention, No Hepatosplenomegaly, - Extremities: No Clubbing, Cyanosis - 3-4+ edema BL Skin: No Nodules or Sclerosis, - - Both lower legs red. Eschar upper lip no change. Neurological: Alert and Oriented x 3, NL Sensation Result Diagrams: 03/19/18 05:45 03/19/18 05:45 Microbiology and Other Data: Microbiology 03/07/18 11:00 Aerobic Blood Culture - Preliminary Blood Venous No Growth Day 4 Anaerobic Blood Culture - Final Staphylococcus Haemolyticus Blood MRSA/MSSA (PCR) - Final Mrsa Negative S.aureus Negative 03/07/18 11:00 Aerobic Blood Culture - Final Blood Venous Corynebacterium Species Anaerobic Blood Culture - Preliminary No Growth Day 4 Blood MRSA/MSSA (PCR) - Final Mrsa Negative S.aureus Negative 03/08/18 14:28 Aerobic Blood Culture - Preliminary Blood Venous No Growth Day 2 Anaerobic Blood Culture - Preliminary No Growth Day 2 03/08/18 14:20 Aerobic Blood Culture - Preliminary Blood Venous No Growth Day 2 Anaerobic Blood Culture - Preliminary No Growth Day 2 03/09/18 14:15 Gram Stain - Final Sputum 03/07/18 14:52 Nasal Screen MRSA (PCR) - Final Nasal Mrsa Not Detected 03/07/18 13:31 Influenza Types A,B Antigen - Final Nasopharyngeal Specimen received for Influenza A/B Molecular testing Assess/Plan/Problems-Billing Mr. Jaison Lacy presented to alteration in sensorium and was admitted to the ICU for acute respiratory failure. 1. Acute hypoxic and infectious encephalopathy- extubated and is improving. The etiology is most likely infectious or hypoxic related. I don't suspect meningitis or brainstem infarction. 2. Bilateral lower extremity edema and weakness- he denied any back pain. We need to verify his baseline strength in the lower extremity. There was no contact information on his list to check the patient's baseline strength. He will need rehabilitation. Time spent: 25 minutes. I will sign off but please contact us for any questions or concerns, especially if the patient's lower extremity weakness is new (less likely). D/w the ICU team. - Patient Problems (1) Severe sepsis Current Visit: Yes Status: Acute Code(s): A41.9 - SEPSIS, UNSPECIFIED ORGANISM; R65.20 - SEVERE SEPSIS WITHOUT SEPTIC SHOCK SNOMED Code(s): 68628506 Comment: Resolved. May have had pneumonia. Intubated for a period. Nl LVEF , not clear that any cardiac contribution to his illness. (2) Thrombocytopenia Current Visit: Yes Status: Acute Code(s): D69.6 - THROMBOCYTOPENIA, UNSPECIFIED SNOMED Code(s): 321536344 Comment: Resolved, likely due to sepsis. (3) Hypothyroidism Current Visit: Yes Status: Acute Code(s): E03.9 - HYPOTHYROIDISM, UNSPECIFIED SNOMED Code(s): 18867830 Comment: -As above -Continue Levothyroxine (4) Adrenal insufficiency Current Visit: Yes Status: Acute Code(s): E27.40 - UNSPECIFIED ADRENOCORTICAL INSUFFICIENCY SNOMED Code(s): 923116718 Comment: -Likely due to above Reduce Hydrocortisone to 15 + 5, discussed with Dr. Bey. Eventually needs stim test. -On further review of pts home meds, it does not appear he was on synthroid until his TSH was found to be elevated and can at times lead to abnormal cosyntropin test; hypothyroidism in addition to sepsis would likely make the effects of AI more pronounced (5) Hypogonadism Current Visit: Yes Status: Acute Code(s): QSS4222 - SNOMED Code(s): 93477920 Comment: Hormone levels could be related to severe hpothermia on admission. Would repeat testosterone in 1 month. (6) Atrial fibrillation Current Visit: Yes Status: Acute Code(s): I48.91 - UNSPECIFIED ATRIAL FIBRILLATION SNOMED Code(s): 29324169 Comment: Good rate without cardiac meds. Low LATASHA-VASC score. Stop tele 03/15. (7) Venous stasis ulcer of leg without varicose veins Current Visit: No Status: Acute Code(s): I87.2 - VENOUS INSUFFICIENCY ( CHRONIC) (PERIPHERAL); L97.909 - NON-PRS CHRONIC ULC UNSP PRT OF UNSP LOW LEG W UNSP SEVERITY SNOMED Code(s): 728124150 Comment: Wound care consult appreciated. (8) Morbid obesity Current Visit: Yes Status: Acute Code(s): E66.01 - MORBID (SEVERE) OBESITY DUE TO EXCESS CALORIES SNOMED Code(s): 688617393 Comment: BMI 65.8. (9) Hypernatremia Current Visit: Yes Status: Acute Code(s): E87.0 - HYPEROSMOLALITY AND HYPERNATREMIA SNOMED Code(s): 16583200 Comment: Continue D5/W 50 ml/hr. Good po intact since he passed swallow re- eval and can have thin liuids. D/C IV fluids when serum Na+ is nl, would check 03/17. (10) Urinary retention Current Visit: Yes Status: Acute Code(s): R33.9 - RETENTION OF URINE, UNSPECIFIED SNOMED Code(s): 681222489 Comment: Navarro re-inserted 03/15, 800 ml immediately drained. Status and Disposition: -Pt mentions he lives in a trailer home and has no family/friends/next of kin that lives in the area. Also mentions he knows he has F/U appointments with his doctors in [place] but unable to go due to lack of resources for travel/car -Pending placement
[2018-03-19 10:19] VITALS: BP 123/51
--- NOTE | 2018-03-19 10:30 | PN ---
Progress Note - Progress Note Date of Service: 03/19/18 Note: Time spent on discharge including exam of pt, discussion with pt, nurse, CM, Dr. Bey, review of EMR and preparation of discharge documents is 50 minutes.
[2018-03-19] MEDS: Polyethylene Glycol 3350* 17 GM PACKET PO SCH (11:26)
[2018-03-19] MEDS: Torsemide TAB* 20 MG PO SCH (11:27)
[2018-03-19] MEDS: Senna TAB PO SCH (11:27)
[2018-03-19] MEDS: Nystatin TOP POWDER* 15 GM BTL TOPICAL SCH ×2 (11:27→14:05)
[2018-03-19] MEDS: COLLAGENASE 250 MG/GM TOPICAL SCH (11:27)
[2018-03-19] MEDS: Hydrocortisone TAB* 10 MG PO SCH (11:28)
--- NOTE | 2018-03-19 12:28 | TRS ---
CC: Zurdo Sin MD; Dr. Noman Starr TRANSFER SUMMARY: DATE OF ADMISSION: DATE OF TRANSFER: 03/19/18 HISTORY OF PRESENT ILLNESS/HOSPITAL COURSE: This 42-year-old man was admitted with decreased mental status, who is brought by ambulance. The family had not heard from him for several days and called the police and the patient was unresponsive when the police arrived. His temperature was 80.0 degrees Fahrenheit on arrival in the emergency room and he was found to be in severe sepsis. He had hypoxemia. He had bilateral pulmonary opacities. He was treated for pneumonia. He required intubation. He was in the ICU for a fairly extended period of time. He appears to be making good recovery. I think he is mostly back at baseline. He is still extremely weak. He requires an easy stand and assistive to get in and out of bed or in and out of a chair. This is made more difficult by his morbid obesity. He had numerous hormone deficiencies, some or all may be related to a severe sepsis. He is currently on adrenal hormone and thyroid hormone replacement. He does not have a stimulation test, which could be considered in the future. If his TSH is normal in the few weeks, tapering off the levothyroxine dose would be a consideration. One would want to repeat his testosterone level, which was unmeasurable at the time of this hospital stay. The patient had urinary retention with a retained volume of 900 mL. Voiding trial in the future could be considered. FINAL DIAGNOSES: 1. Severe sepsis with pneumonia. 2. Thrombocytopenia, resolved. 3. Hyperthyroidism. 4. Relative adrenal insufficiency. 5. Hypogonadism. 6. Atrial fibrillation. 7. Chronic lymphedema with venous stasis ulcer. 8. Morbid obesity. 9. Hypernatremia, resolved. TRANSFER MEDICATIONS: 1. Collagenase to wound daily. 2. Hydrocortisone 15 mg in the morning, 5 mg at bedtime. 3. Levothyroxine 50 mcg daily. 4. Magnesium oxide 400 mg b.i.d. 5. Nystatin powder topically t.i.d. 6. Polyethylene glycol 17 g b.i.d. 7. Torsemide 20 mg daily. CONDITION ON DISCHARGE: stable DISPOSITION ON DISCHARGE: discharge to [facility] [id number]/[facility] #[facility] [id number] [facility]
[2018-03-19] MEDS ORDERED: Hydrocortisone TAB* 10 MG PO SCH (21:00)
[2018-03-19] MEDS ORDERED: Hydrocortisone TAB* 5 MG PO SCH (21:00)
[2018-03-19] MEDS ORDERED: Magnesium Oxide TAB* 400 MG PO SCH (21:00)
[2018-03-20] MEDS ORDERED: Hydrocortisone TAB* 5 MG PO SCH (09:00)
[2018-03-20] MEDS ORDERED: Hydrocortisone TAB* 10 MG PO SCH (09:00)
== END 2018-03-19 15:11 | DRG 870 ==
LOC: ED 10:39 → ICU 12:53 → MEDTELE 03-13 16:19
PROVIDERS: ADMIT Internal Medicine Pulmonary Disease; ATTEND Internal Medicine
PROC: 0BH17EZ Insertion of Endotracheal Airway into Trachea, Via Natural or Artificial Opening (ICD-10-PCS; principal; 2018-03-07)
PROC: 5A1955Z Respiratory Ventilation, Greater than 96 Consecutive Hours (ICD-10-PCS; 2018-03-07)
PROC: 05HN33Z Insertion of Infusion Device into Left Internal Jugular Vein, Percutaneous Approach (ICD-10-PCS; 2018-03-07)
PROC: 0T9B70Z Drainage of Bladder with Drainage Device, Via Natural or Artificial Opening (ICD-10-PCS; 2018-03-07)
PROC: 4A00X4Z Measurement of Central Nervous Electrical Activity, External Approach (ICD-10-PCS; 2018-03-08)
PROC: 3E033XZ Introduction of Vasopressor into Peripheral Vein, Percutaneous Approach (ICD-10-PCS; 2018-03-08)
PROC: 0BP1XDZ Removal of Intraluminal Device from Trachea, External Approach (ICD-10-PCS; 2018-03-12)
PROC: 0TPBX0Z Removal of Drainage Device from Bladder, External Approach (ICD-10-PCS; 2018-03-15)
PROC: 0T9B70Z Drainage of Bladder with Drainage Device, Via Natural or Artificial Opening (ICD-10-PCS; 2018-03-15)
DX: A41.9 Sepsis, unspecified organism (principal); J18.9 Pneumonia, unspecified organism; R40.2342 Coma scale, best motor response, flexion withdrawal, at arrival to emergency department; R40.2222 Coma scale, best verbal response, incomprehensible words, at arrival to emergency department; J96.01 Acute respiratory failure with hypoxia; I46.9 Cardiac arrest, cause unspecified; I49.01 Ventricular fibrillation; R65.21 Severe sepsis with septic shock; J96.22 Acute and chronic respiratory failure with hypercapnia; D61.818 Other pancytopenia; L97.929 Non-pressure chronic ulcer of unspecified part of left lower leg with unspecified severity; L97.919 Non-pressure chronic ulcer of unspecified part of right lower leg with unspecified severity; Z68.44 Body mass index [BMI] 60.0-69.9, adult; N17.9 Acute kidney failure, unspecified; E27.40 Unspecified adrenocortical insufficiency; L03.116 Cellulitis of left lower limb; L03.115 Cellulitis of right lower limb; G93.1 Anoxic brain damage, not elsewhere classified; E23.0 Hypopituitarism; E87.0 Hyperosmolality and hypernatremia; R33.9 Retention of urine, unspecified; E83.42 Hypomagnesemia; I87.8 Other specified disorders of veins; B37.2 Candidiasis of skin and nail; K59.00 Constipation, unspecified; E03.9 Hypothyroidism, unspecified; R62.50 Unspecified lack of expected normal physiological development in childhood; I10 Essential (primary) hypertension; J43.9 Emphysema, unspecified; I48.91 Unspecified atrial fibrillation; K13.0 Diseases of lips; E11.9 Type 2 diabetes mellitus without complications; R40.2142 Coma scale, eyes open, spontaneous, at arrival to emergency department; E66.01 Morbid (severe) obesity due to excess calories; E87.5 Hyperkalemia; T68.XXXA Hypothermia, initial encounter; H55.00 Unspecified nystagmus; I89.0 Lymphedema, not elsewhere classified; Z88.1 Allergy status to other antibiotic agents; Z87.891 Personal history of nicotine dependence
CPT/HCPCS: 36415; 36600; 70450; 71045; 74018; 80048; 80053; 80202; 80307; 80320; 80329; 81003; 82088; 82150; 82397; 82533; 82550; 82565; 82607; 82803; 83001; 83002; 83003; 83036; 83519; 83605; 83615; 83690; 83735; 83880; 84100; 84132; 84146; 84155; 84165; 84244; 84305; 84403; 84436; 84443; 84479; 84481; 84484; 84520; 85025; 85027; 85060; 85379; 85384; 85610; 85652; 85730; 86022; 86140; 86376; 87040; 87070; 87077; 87150; 87186; 87205; 87641; 93005; 93306; 93970; 94003; 95816; 95822; 99223; 99232; 99285; A9270-GY; C8929; G0480; G8978-GP-CM; G8979-GP-CJ; G8987-GO-CM; G8988-GO-CI; J0171; J0330; J0696; J1265; J1644; J1650; J1720; J1940; J2060; J2250; J2543; J2704; J3010; J3370; J3475; J3480; J7512

== ENCOUNTER 2019-09-28 03:20 | Inpatient (IN) ==
[2019-09-28 04:20] LABS: ABS Basophils 0.2 10^3/ul (0-0.2); ABS Eosinophils 0.1 10^3/ul (0-0.6); ABS Lymphocytes 1.5 10^3/ul (1.0-4.8); ABS Monocytes 1.6 10^3/ul (0-0.8); ABS Neutrophils 12.1 10^3/ul (1.5-7.7); Eosinophil % 0.7 %; Hematocrit 35 % (42-52); Hemoglobin 10.9 g/dL (14.0-18.0); Lymphocyte % 9.5 %; Mean Corpuscular HGB Conc 31 g/dL (31-36); Mean Corpuscular Hemoglobin 22 pg (27-31); Mean Corpuscular Volume 71 fL (80-94); Mean Platelet Volume 7.8 fL (7.4-10.4); Nucleated Red Blood Cells % 0.1; Platelet Count 305 10^3/uL (150-450); Red Blood Count 4.92 10^6 /uL (4.18-5.48); Red Cell Distribution Width 21 % (10-15); White Blood Count 15.4 10^3/uL (3.5-10.8)
[2019-09-28 04:31] LABS: Albumin 3.4 g/dL (3.2-5.2); Anion Gap 4 mmol/L (2-11); CO2 Carbon Dioxide 34 mmol/L (22-32); Chloride 104 mmol/L (101-111); Magnesium 1.8 mg/dL (1.9-2.7); Potassium 4.5 mmol/L (3.5-5.0); Sodium 142 mmol/L (135-145)
[2019-09-28 04:37] LABS: ALT 25 U/L (7-52); AST 27 U/L (13-39); Albumin/Globulin Ratio 0.8 (1-3); Alkaline Phosphatase 65 U/L (34-104); BUN/Creatinine Ratio 23.2 (8-20); Blood Urea Nitrogen 22 mg/dL (6-24); EGFR African American 103.7 (>60); EGFR Non-African American 85.7 (>60); Globulin 4.2 g/dL (2-4); Glucose 125 mg/dL (70-100); Total Protein 7.6 g/dL (6.4-8.9)
[2019-09-28 04:38] LABS: Troponin I 0.03 ng/mL (<0.03)
[2019-09-28] MEDS ORDERED: Piperacillin/Tazobac ADVAN 3.375 GM in NS 0.9% 100 ml BAG 100 ML IVPB ONE (05:06)
[2019-09-28 05:35] LABS: Urine Appearance Cloudy; Urine Bilirubin Negative (Negative); Urine Blood Negative (Negative); Urine Color Yellow; Urine Glucose Negative (Negative); Urine Ketones Negative (Negative); Urine Nitrite Negative (Negative); Urine Protein 1+(30 mg/dL) (Negative); Urine Specific Gravity 1.023 (1.010-1.030); Urine Urobilinogen Negative (Negative)
[2019-09-28 05:51] LABS: Urine Bacteria Absent (Absent); Urine Red Blood Cell Trace(0-2/hpf) (Absent); Urine White Blood Cell Trace(0-5/hpf) (Absent)
[2019-09-28] MEDS ORDERED: NS 0.9% IV ONE (07:15)
[2019-09-28] MEDS: Clindamycin 600 MG/D5W BAG 600 MG/50 ML BAG IV SCH ×3 (07:46→23:07)
[2019-09-28] MEDS: Polyethylene Glycol 3350 17 GM PACKET PO SCH (07:47)
[2019-09-28] MEDS: Heparin 5000 UNITS/ML 1 mL VIAL SUBCUT SCH ×3 (07:47→20:44)
[2019-09-28 08:13] LABS: Troponin I 0.05 ng/mL (<0.03)
[2019-09-28] MEDS ORDERED: Piperacillin/Tazobac ADVAN 3.375 GM in NS 0.9% 100 ml BAG 100 ML IV SCH (09:00)
[2019-09-28] MEDS: NS 0.9% 1000 ml BAG 1,000 ML IV SCH (10:00)
[2019-09-28 13:46] LABS: Troponin I 0.04 ng/mL (<0.03)
[2019-09-28] MEDS ORDERED: Dextrose 50% Syringe 50 ml 25 GM/50 ML SYRINGE IV PUSH PRN (22:21)
[2019-09-29] MEDS: Heparin 5000 UNITS/ML 1 mL VIAL SUBCUT SCH ×3 (05:31→21:16)
[2019-09-29] MEDS: NS 0.9% 1000 ml BAG 1,000 ML IV SCH ×2 (05:40→20:32)
[2019-09-29] MEDS: Clindamycin 600 MG/D5W BAG 600 MG/50 ML BAG IV SCH (08:12)
[2019-09-29] MEDS: Polyethylene Glycol 3350 17 GM PACKET PO SCH (08:12)
[2019-09-29 09:17] LABS: ABS Basophils 0.1 10^3/ul (0-0.2); ABS Eosinophils 0.4 10^3/ul (0-0.6); ABS Lymphocytes 1.5 10^3/ul (1.0-4.8); ABS Monocytes 1.1 10^3/ul (0-0.8); Eosinophil % 3.7 %; Hematocrit 32 % (42-52); Hemoglobin 9.9 g/dL (14.0-18.0); Lymphocyte % 14.9 %; Mean Corpuscular HGB Conc 31 g/dL (31-36); Mean Corpuscular Hemoglobin 22 pg (27-31); Mean Corpuscular Volume 72 fL (80-94); Mean Platelet Volume 7.4 fL (7.4-10.4); Platelet Count 257 10^3/uL (150-450); Red Blood Count 4.48 10^6 /uL (4.18-5.48); Red Cell Distribution Width 21 % (10-15); White Blood Count 10.2 10^3/uL (3.5-10.8)
[2019-09-29 09:35] LABS: Calcium 8.1 mg/dL (8.6-10.3); EGFR African American 111.8 (>60); EGFR Non-African American 92.4 (>60); Potassium 3.8 mmol/L (3.5-5.0)
[2019-09-29 10:09] LABS: Microcytosis 2+
[2019-09-30] MEDS: Heparin 5000 UNITS/ML 1 mL VIAL SUBCUT SCH ×3 (06:02→20:21)
[2019-09-30 07:08] LABS: Hematocrit 31 % (42-52); Hemoglobin 9.8 g/dL (14.0-18.0); Mean Corpuscular HGB Conc 32 g/dL (31-36); Mean Corpuscular Hemoglobin 23 pg (27-31); Mean Corpuscular Volume 72 fL (80-94); Mean Platelet Volume 8.1 fL (7.4-10.4); Platelet Count 267 10^3/uL (150-450); Red Blood Count 4.32 10^6 /uL (4.18-5.48); Red Cell Distribution Width 21 % (10-15); White Blood Count 10.9 10^3/uL (3.5-10.8)
[2019-09-30 07:20] LABS: BUN/Creatinine Ratio 22.1 (8-20); Calcium 8.4 mg/dL (8.6-10.3); EGFR African American 132.2 (>60); EGFR Non-African American 109.3 (>60); Potassium 4.2 mmol/L (3.5-5.0)
[2019-09-30 09:12] LABS: ABS Basophils 0.1 10^3/ul (0-0.2); ABS Eosinophils 0.6 10^3/ul (0-0.6); ABS Lymphocytes 1.7 10^3/ul (1.0-4.8); ABS Monocytes 1.2 10^3/ul (0-0.8); ABS Neutrophils 7.4 10^3/ul (1.5-7.7); Eosinophil % 5.1 %; Lymphocyte % 15.5 %; Nucleated Red Blood Cells % 0.3
[2019-09-30 09:14] LABS: Microcytosis 2+
[2019-09-30] MEDS: Polyethylene Glycol 3350 17 GM PACKET PO SCH (09:30)
[2019-10-01] MEDS: Heparin 5000 UNITS/ML 1 mL VIAL SUBCUT SCH ×3 (05:34→20:39)
[2019-10-01 08:59] LABS: Hematocrit 33 % (42-52); Hemoglobin 10.2 g/dL (14.0-18.0); Mean Corpuscular HGB Conc 31 g/dL (31-36); Mean Corpuscular Hemoglobin 22 pg (27-31); Mean Corpuscular Volume 71 fL (80-94); Mean Platelet Volume 7.8 fL (7.4-10.4); Platelet Count 299 10^3/uL (150-450); Red Blood Count 4.61 10^6 /uL (4.18-5.48); Red Cell Distribution Width 21 % (10-15)
[2019-10-01] MEDS: Polyethylene Glycol 3350 17 GM PACKET PO SCH (09:29)
[2019-10-01 10:44] LABS: ABS Basophils 0.1 10^3/ul (0-0.2); ABS Eosinophils 0.5 10^3/ul (0-0.6); ABS Lymphocytes 1.7 10^3/ul (1.0-4.8); ABS Neutrophils 7.7 10^3/ul (1.5-7.7); Eosinophil % 4.5 %; Lymphocyte % 15.7 %; Microcytosis 2+
[2019-10-02] MEDS: Heparin 5000 UNITS/ML 1 mL VIAL SUBCUT SCH ×3 (05:30→22:01)
[2019-10-02] MEDS: Polyethylene Glycol 3350 17 GM PACKET PO SCH (10:08)
[2019-10-03] MEDS: Heparin 5000 UNITS/ML 1 mL VIAL SUBCUT SCH ×3 (04:05→22:08)
[2019-10-03] MEDS: Polyethylene Glycol 3350 17 GM PACKET PO SCH (08:19)
[2019-10-04] MEDS: Heparin 5000 UNITS/ML 1 mL VIAL SUBCUT SCH ×3 (06:21→21:01)
[2019-10-04] MEDS: Polyethylene Glycol 3350 17 GM PACKET PO SCH (09:35)
[2019-10-05] MEDS: Heparin 5000 UNITS/ML 1 mL VIAL SUBCUT SCH ×3 (06:01→20:59)
[2019-10-05] MEDS: Polyethylene Glycol 3350 17 GM PACKET PO SCH (09:59)
[2019-10-06] MEDS: Heparin 5000 UNITS/ML 1 mL VIAL SUBCUT SCH ×2 (06:06→13:44)
[2019-10-06] MEDS: Polyethylene Glycol 3350 17 GM PACKET PO SCH (09:17)
[2019-10-06 15:46] VITALS: BP 136/77
== END 2019-10-06 18:15 | DRG 380 ==
LOC: ED 03:20 → EDHOLD 05:42 → MED 08:19
PROVIDERS: ADMIT Pediatrics; ATTEND Internal Medicine